=== PATIENT | male | born 1980 | race Caucasian/White ===

== ENCOUNTER 2017-03-28 22:34 | Emergency (ER) | payer SELFPAY ==
[2017-03-28 22:41] VITALS: BP 170/80; PULSE 82; RESP 18; TEMP 97.3
--- NOTE | 2017-03-28 23:13 | ED ---
Upper Extremity HPI - General Chief Complaint: Extremity Injury, Upper Stated Complaint: right hand pain Time Seen by Provider: 03/28/17 23:08 Source: patient Mode of arrival: ambulatory Limitations: no limitations - History of Present Illness Initial Comments: 36-year-old male presents with right hand pain times one day. Patient states he was playing around with his friends and punched pull on the basement. Patient states he felt pain near his fifth digit. Patient states it swelled right away. Patient has been using ice and taking Motrin. Patient states it's still operator brandy but the swelling has gone down. Patient states he does feel pain and stiffness in the area. No numbness or tingling. No pain up the arm no elbow or shoulder pain. No other concerns. No previous fractures. MD Complaint: Injury to:: right, hand Place: home - Related Data Home Medications Medication Instructions Recorded Confirmed Lisinopril [Zestril] 10 mg PO DAILY 06/11/14 04/18/15 Previous Rx's Medication Instructions Recorded Meclizine HCl 25 mg PO TID PRN #20 tablet 04/18/15 Allergies Allergy/AdvReac Type Severity Reaction Status Date / Time No Known Allergies Allergy Verified 03/28/17 22:41 Review of Systems ROS Statement: Those systems with pertinent positive or pertinent negative responses have been documented in the HPI. ROS Other: All systems not noted in ROS Statement are negative. Musculoskeletal: Reports: other (Tender to right fifth digit) Neurological: Denies: weakness, numbness, paresthesias Past Medical History Past Medical History: Hypertension History of Any Multi-Drug Resistant Organisms: None Reported Past Surgical History: Orthopedic Surgery Past Psychological History: No Psychological Hx Reported Smoking Status: Never smoker Past Alcohol Use History: None Reported Past Drug Use History: None Reported General Exam Limitations: no limitations General appearance: alert, in no apparent distress Right Shoulder Exam: Present: normal inspection, full ROM. Absent: tenderness, swelling Upper Arm exam: Present: normal inspection, full ROM. Absent: tenderness, swelling Elbow exam: Present: normal inspection, full ROM. Absent: tenderness, swelling Forearm Wrist exam: Present: normal inspection, full ROM. Absent: tenderness, swelling Hand Wrist exam: Present: tenderness (right fifth), swelling (right fifth) Neuro motor exam: Present: wrist extension intact, thumb opposition intact Neurosensory exam: Present: 2-point discrimination Vascular: Present: normal capillary refill Neurological exam: Present: alert, oriented X3, CN II-XII intact Psychiatric exam: Present: normal affect, normal mood Skin exam: Present: warm, dry, intact, normal color. Absent: rash Course Vital Signs 03/28/17 22:39 Temperature 97.3 F L Pulse Rate 82 Respiratory 18 Rate Blood Pressure 170/80 O2 Sat by Pulse 99 Oximetry Medical Decision Making - Medical Decision Making Reviewed x-ray negative for any acute fracture. Patient aware. Patient given Jj wrap for extra support. Patient to continue with [id number] Motrin as needed for pain and swelling along with ice. Follow-up if not improving. Disposition Clinical Impression: Hand contusion Disposition: HOME SELF-CARE Condition: Good Instructions: Hand Sprain (ED), Contusion in Adults (ED) Referrals: Deni Kathleen DO [Primary Care Provider] - 1-2 days Ramón Barakat DO [Doctor of Osteopathic Medicine] - 1-2 days Time of Disposition: 23:12
--- NOTE | 2017-03-28 23:13 | XR ---
EXAM: XR Right Hand Complete, 3 or More Views CLINICAL HISTORY: Reason: Pain TECHNIQUE: Frontal, lateral and oblique views of the right hand. COMPARISON: No relevant prior studies available. FINDINGS: Bones/joints: Unremarkable. No acute fracture. No dislocation. Soft tissues: Unremarkable. No radiopaque foreign body. IMPRESSION: Normal right hand x-rays.
== END 2017-03-28 23:20 | disposition home or self-care (01) ==
LOC: EC 22:34
DX: S60.221A Contusion of right hand, initial encounter (principal); Z79.899 Other long term (current) drug therapy; W22.09XA Striking against other stationary object, initial encounter; Y93.89 Activity, other specified; Y92.009 Unspecified place in unspecified non-institutional (private) residence as the place of occurrence of the external cause
CPT/HCPCS: 99283

== ENCOUNTER 2018-11-03 19:18 | Emergency (ER) | payer OTHER ==
[2018-11-03 19:36] VITALS: BP 158/79; PULSE 72; RESP 20; TEMP 99
--- NOTE | 2018-11-03 20:45 | XR ---
EXAMINATION TYPE: XR elbow complete RT DATE OF EXAM: 11/03/2018 COMPARISON: NONE HISTORY: Elbow pain TECHNIQUE: 3 views FINDINGS: There is some spurring on the olecranon process of the ulna. I see no fracture nor dislocat ion. Joint spaces are normal. IMPRESSION: Mild spurring. No fracture.
--- NOTE | 2018-11-03 20:46 | XR ---
EXAMINATION TYPE: XR hand complete RT DATE OF EXAM: 11/03/2018 COMPARISON: 03/28/2017 HISTORY: Pain TECHNIQUE: 3 views FINDINGS: I see no fracture nor dislocation. Joint spaces are normal. Metacarpals are intact. IMPRESSION: Negative right hand exam. No change.
--- NOTE | 2018-11-03 20:54 | ED ---
Upper Extremity HPI - General Chief Complaint: Extremity Injury, Upper Stated Complaint: Rt arm injury Time Seen by Provider: 11/03/18 19:47 Source: patient, family Mode of arrival: ambulatory Limitations: no limitations - History of Present Illness Initial Comments: 38-year-old male presented for right elbow pain, and pain of digits 4 &5. Patient states that he punched a wall 2 months ago and has been experiencing hand pain since chronically. Pt concerned may have fractured his hand, he occasionally since punching the wall has experienced tingling in digits 4 &5. She also states that he has hit his right elbow twice on a wall yesterday on accident. He states he has now had sharp pain that deep down forearm towards fingers. Patient was expressing these concerns with his who told him to come to the ER for evaluation. Patient denies any numbness tingling loss sensation pill or coolness of the extremity Remaining ROS (-), patient denies any recent fever, chills, shortness of breath, chest pain, back pain, abdominal pain, nausea or vomiting, numbness or tingling, dysuria or hematuria, constipation or diarrhea, headaches or visual changes, or any other complaints. - Related Data Home Medications Medication Instructions Recorded Confirmed Lisinopril [Zestril] 10 mg PO DAILY 06/11/14 04/18/15 Previous Rx's Medication Instructions Recorded Meclizine HCl 25 mg PO TID PRN #20 tablet 04/18/15 Allergies Allergy/AdvReac Type Severity Reaction Status Date / Time No Known Allergies Allergy Verified 11/03/18 19:36 Review of Systems ROS Statement: Those systems with pertinent positive or pertinent negative responses have been documented in the HPI. ROS Other: All systems not noted in ROS Statement are negative. Past Medical History Past Medical History: Hypertension History of Any Multi-Drug Resistant Organisms: None Reported Past Surgical History: Orthopedic Surgery Past Psychological History: No Psychological Hx Reported Smoking Status: Never smoker Past Alcohol Use History: None Reported Past Drug Use History: None Reported General Exam - General Exam Comments Initial Comments: General: The patient is awake and alert, in no distress, and does not appear acutely ill. Eye: Pupils are equal, round and reactive to light, extra-ocular movements are intact. No nystagmus. There is normal conjunctiva bilaterally. No signs of icterus. Ears, nose, mouth and throat: There are moist mucous membranes and no oral lesions. Neck: The neck is supple, there is no tenderness or JVD. Cardiovascular: There is a regular rate and rhythm. No murmur, rub or gallop is appreciated. Respiratory: Lungs are clear to auscultation, respirations are non-labored, breath sounds are equal. No wheezes, stridor, rales, or rhonchi. Gastrointestinal: Soft, non-distended, non-tender abdomen without masses or organomegaly noted. There is no rebound or guarding present. No CVA tenderness. Bowel sounds are unremarkable. Musculoskeletal: Normal ROM, at the goals equal bilaterally. Patient admits to mild tenderness with range motion of the right elbow. No soft tissue swelling of the elbows bilaterally. No soft tissue swelling of the MTP DIP and PIP joints. Strength 5/5 of the UE and MTP/DIP/PIP joints of the UE b/l. Sensation intact of the UE equal b/l. Radial pulses equal bilaterally 2+. Capillary refill < 2 seconds. Tingling reproduced with palpation of ulnar near (+) tinels. Neurological: A&O x 3. CN II-XII intact, There are no obvious motor or sensory deficits. Coordination appears grossly intact. Speech is normal. Skin: Skin is warm and dry and no rashes or lesions are noted. Psychiatric: Cooperative, appropriate mood & affect, normal judgment. Limitations: no limitations Course Vital Signs 11/03/18 19:33 Temperature 99 F Pulse Rate 72 Respiratory 20 Rate Blood Pressure 158/79 O2 Sat by Pulse 96 Oximetry Medical Decision Making - Medical Decision Making 38-year-old male presenting for hand pain 2 month and elbow pain times one day. Imaging studies negative for acute osseous injury. Patient most likely is ulnar nerve irritation from hitting elbow twice yesterday. Patient was instructed to follow-up with orthopedic surgery if symptoms persist. Patient neurovascularly intact. At this time feel patient is stable for discharge outpatient follow-up. Patient is agreeable to plan discharge denies questionable this time. Patient discharged appearing well discussed case with him prior Dr. Maldonado prior to patient's discharge. Disposition Clinical Impression: Irritation of ulnar nerve, Hand pain Disposition: HOME SELF-CARE Condition: Good Instructions (If sedation given, give patient instructions): Hand Sprain (ED) Additional Instructions: Please use medication as discussed. Please follow-up with family doctor in the next 2 days. Please return to emergency room if the symptoms increase or worsen or for any other concerns. Is patient prescribed a controlled substance at d/c from ED?: No Referrals: None,Stated [Primary Care Provider] - 1-2 days Time of Disposition: 20:54
== END 2018-11-03 21:06 | disposition home or self-care (01) ==
LOC: EC 19:18
DX: G56.21 Lesion of ulnar nerve, right upper limb (principal); M79.641 Pain in right hand; I10 Essential (primary) hypertension; Z79.899 Other long term (current) drug therapy
CPT/HCPCS: 99283

== ENCOUNTER → 2019-02-28 | Outpatient (CLI) | payer OTHER ==
--- NOTE | 2019-02-28 13:05 | US ---
EXAMINATION TYPE: US abdomen complete DATE OF EXAM: 02/28/2019 COMPARISON: NONE CLINICAL HISTORY: R94.5 Abnormal liver function studies. EXAM MEASUREMENTS: Liver Length: 12.5 cm Gallbladder Wall: 0.2 cm CBD: 0.3 cm Spleen: 12.5 cm Right Kidney: 11.8 x 5.8 x 5.2 cm Left Kidney: 12.3 x 6.3 x 5.2 cm Pancreas: Obscured by bowel gas Liver: Enlarged, increased echogenicity with focal sparing near GB, partially obscured by bowel gas. Gallbladder: wnl Evidence for sonographic Mcdowell's sign: No CBD: wnl Spleen: wnl Right Kidney: wnl Left Kidney: wnl Upper IVC: wnl Abd Aorta: wnl The liver is enlarged and demonstrates increased echogenicity. Areas of focal fatty sparing noted. Th e intrahepatic portion of the IVC and proximal abdominal aorta are within normal limits. There is no evidence of cholelithiasis. Common bile duct is unremarkable. The visualized portions of the pancr eas are homogenous. The spleen is unremarkable. Kidneys are symmetric and free of hydronephrosis. No renal lesions are seen. IMPRESSION: Hepatomegaly with mild hepatic steatosis.
[2019-02-28 15:34] LABS: ALT 62 U/L (21-72); AST 42 U/L (17-59); Alkaline Phosphatase 50 U/L (38-126); Amylase 48 U/L (30-110); Lipase 35 U/L (23-300)
[2019-02-28 19:42] LABS: Hepatitis A Antibody IgM Non-Reactive (Non-Reactive); Hepatitis B Core IgM Non-Reactive (Non-Reactive)
== END | disposition home or self-care (01) ==
LOC: RADUSWWP 06:46
PROVIDERS: ATTEND Family Medicine
DX: K76.0 Fatty (change of) liver, not elsewhere classified (principal); R94.5 Abnormal results of liver function studies
CPT/HCPCS: 76700; 80074; 82150; 83690; 84075; 84450; 84460

== ENCOUNTER → 2019-03-12 | Outpatient (CLI) | payer OTHER ==
--- NOTE | 2019-03-12 11:40 | NM ---
EXAMINATION TYPE: NM hepatobiliary w EF DATE OF EXAM: 03/12/2019 COMPARISON: Abdominal ultrasound February 28, 2019 HISTORY: Abnormal results of liver function studies TECHNIQUE: After the intravenous administration of 5.2 mCi Tc 99m Mebrofenin hepatobiliary scintigrap hy is performed. Immediate images post injection. FINDINGS: There is satisfactory initial accumulation of tracer by the liver. The gallbladder is visualized wit hin 10 minutes. The small bowel activity is noted within 25 minutes. At one hour 8 ounces of oral e nsure plus is given to mimic CCK and gallbladder ejection fraction is calculated at 64 %, in the norm al range. Therefore there is no scintigraphic evidence of cystic or common bile duct obstruction to suggest acute cholecystitis or gallbladder dyskinesia. IMPRESSION: Exam is within normal limits.
== END | disposition home or self-care (01) ==
LOC: RADNMMAIN 08:42
PROVIDERS: ATTEND Family Medicine
DX: R94.5 Abnormal results of liver function studies (principal); K76.9 Liver disease, unspecified
CPT/HCPCS: 78226; A9537

== ENCOUNTER 2019-04-24 18:53 | Observation (INO) | payer OTHER ==
[2019-04-24] MEDS ORDERED: NITROGLYCERIN OINT 1 INCH/GM PACKET TOPICAL STA (19:11)
[2019-04-24] MEDS ORDERED: ASPIRIN 81 MG PO STA (19:11)
--- NOTE | 2019-04-24 19:14 | ED ---
General Adult HPI - General Chief complaint: Chest Pain Stated complaint: Chest pain Time Seen by Provider: 04/24/19 19:04 Source: patient, RN notes reviewed Mode of arrival: wheelchair Limitations: no limitations - History of Present Illness Initial comments: Patient is a pleasant 38-year-old male presenting to the emergency Department with chest discomfort. Onset of symptoms was prior to arrival. Symptoms did start around 40 minutes after eating. Patient had sharp discomfort in his mid chest with some radiation towards the shoulder. Patient has had a mild ache in the shoulder since this morning. Patient did have some associated nausea and s weating. No dyspnea. No history of similar symptoms previously. Symptoms are near resolved at this time. - Related Data Home Medications Medication Instructions Recorded Confirmed Lisinopril [Zestril] 5 mg PO DAILY 04/24/19 04/24/19 Naproxen 500 mg PO DAILY 04/24/19 04/24/19 Sertraline HCl [Zoloft] 50 mg PO HS 04/24/19 04/24/19 Allergies Allergy/AdvReac Type Severity Reaction Status Date / Time No Known Allergies Allergy Verified 04/24/19 19:38 Review of Systems ROS Statement: Those systems with pertinent positive or pertinent negative responses have been documented in the HPI. ROS Other: All systems not noted in ROS Statement are negative. Constitutional: Denies: fever Eyes: Denies: eye pain ENT: Denies: ear pain Respiratory: Denies: dyspnea Cardiovascular: Reports: chest pain Endocrine: Denies: fatigue Gastrointestinal: Reports: nausea Genitourinary: Denies: dysuria Musculoskeletal: Denies: back pain Skin: Denies: rash Past Medical History Past Medical History: No Reported History, Hypertension History of Any Multi-Drug Resistant Organisms: None Reported Past Surgical History: Orthopedic Surgery Past Psychological History: No Psychological Hx Reported Smoking Status: Never smoker Past Alcohol Use History: None Reported Past Drug Use History: None Reported General Exam Limitations: no limitations General appearance: alert, in no apparent distress Head exam: Present: atraumatic Eye exam: Present: normal appearance, PERRL ENT exam: Present: normal oropharynx Neck exam: Present: normal inspection Respiratory exam: Present: normal lung sounds bilaterally. Absent: chest wall tenderness Cardiovascular Exam: Present: regular rate, normal rhythm Expanded Peripheral pulses: 2+: Radial (R), Radial (L), Posterior Tibialis (R), Posterior Tibialis (L) GI/Abdominal exam: Present: soft. Absent: tenderness Extremities exam: Present: normal inspection. Absent: pedal edema, calf tenderness Neurological exam: Present: alert Psychiatric exam: Present: normal affect, normal mood Skin exam: Present: normal color Course Vital Signs 04/24/19 04/24/19 04/24/19 18:56 20:24 20:45 Temperature 98.2 F Pulse Rate 18 L 93 97 Respiratory 22 18 20 Rate Blood Pressure 155/97 144/79 151/76 O2 Sat by Pulse 93 L 97 97 Oximetry EKG Findings - EKG Comments: EKG Findings:: Normal sinus rhythm 87. PA 160. QRS 88. QT 350. QTC 421. Normal axis. Normal QRS. No acute ST change. Medical Decision Making - Medical Decision Making Patient reevaluated and resting comfortably in bed. Patient and family updated on results and plan. Case was discussed in detail with Dr. Zhu, who will admit his patient. - Lab Data Result diagrams: 04/24/19 19:19 04/24/19 19:19 Lab Results 04/24/19 04/24/19 04/24/19 Range/Units 19:19 19:19 19:19 WBC 7.6 (3.8-10.6) k/uL RBC 5.10 (4.30-5.90) m/uL Hgb 15.1 (13.0-17.5) gm/dL Hct 44.1 (39.0-53.0) % MCV 86.5 (80.0-100.0) fL MCH 29.7 (25.0-35.0) pg MCHC 34.4 (31.0-37.0) g/dL RDW 15.3 (11.5-15.5) % Plt Count 230 (150-450) k/uL Neutrophils % 71 % Lymphocytes % 22 % Monocytes % 4 % Eosinophils % 2 % Basophils % 0 % Neutrophils # 5.4 (1.3-7.7) k/uL Lymphocytes # 1.6 (1.0-4.8) k/uL Monocytes # 0.3 (0-1.0) k/uL Eosinophils # 0.1 (0-0.7) k/uL Basophils # 0.0 (0-0.2) k/uL PT 9.8 (9.0-12.0) sec INR 0.9 (<1.2) APTT 25.1 (22.0-30.0) sec D-Dimer <0.17 (<0.60) mg/L FEU Sodium 139 (137-145) mmol/L Potassium 4.0 (3.5-5.1) mmol/L Chloride 107 (98-107) mmol/L Carbon Dioxide 22 (22-30) mmol/L Anion Gap 10 mmol/L BUN 13 (9-20) mg/dL Creatinine 0.83 (0.66-1.25) mg/dL Est GFR (CKD-EPI)AfAm >90 (>60 ml/min/1.73 sqM) Est GFR (CKD-EPI)NonAf >90 (>60 ml/min/1.73 sqM) Glucose 200 H (74-99) mg/dL Calcium 8.8 (8.4-10.2) mg/dL Magnesium 2.0 (1.6-2.3) mg/dL Total Bilirubin 0.2 (0.2-1.3) mg/dL AST 36 (17-59) U/L ALT 47 (21-72) U/L Alkaline Phosphatase 52 (38-126) U/L Troponin I (0.000-0.034) ng/mL Total Protein 6.2 L (6.3-8.2) g/dL Albumin 4.1 (3.5-5.0) g/dL 04/24/19 Range/Units 19:19 WBC (3.8-10.6) k/uL RBC (4.30-5.90) m/uL Hgb (13.0-17.5) gm/dL Hct (39.0-53.0) % MCV (80.0-100.0) fL MCH (25.0-35.0) pg MCHC (31.0-37.0) g/dL RDW (11.5-15.5) % Plt Count (150-450) k/uL Neutrophils % % Lymphocytes % % Monocytes % % Eosinophils % % Basophils % % Neutrophils # (1.3-7.7) k/uL Lymphocytes # (1.0-4.8) k/uL Monocytes # (0-1.0) k/uL Eosinophils # (0-0.7) k/uL Basophils # (0-0.2) k/uL PT (9.0-12.0) sec INR (<1.2) APTT (22.0-30.0) sec D-Dimer (<0.60) mg/L FEU Sodium (137-145) mmol/L Potassium (3.5-5.1) mmol/L Chloride (98-107) mmol/L Carbon Dioxide (22-30) mmol/L Anion Gap mmol/L BUN (9-20) mg/dL Creatinine (0.66-1.25) mg/dL Est GFR (CKD-EPI)AfAm (>60 ml/min/1.73 sqM) Est GFR (CKD-EPI)NonAf (>60 ml/min/1.73 sqM) Glucose (74-99) mg/dL Calcium (8.4-10.2) mg/dL Magnesium (1.6-2.3) mg/dL Total Bilirubin (0.2-1.3) mg/dL AST (17-59) U/L ALT (21-72) U/L Alkaline Phosphatase (38-126) U/L Troponin I <0.012 (0.000-0.034) ng/mL Total Protein (6.3-8.2) g/dL Albumin (3.5-5.0) g/dL - Radiology Data Radiology results: image reviewed (Chest x-ray shows no acute process) Disposition Clinical Impression: Chest pain Disposition: ADMITTED IP TO THIS [facility] Is patient prescribed a controlled substance at d/c from ED?: No Referrals: Cristpoher Monroe Jr, [Primary Care Provider] - 1-2 days Decision Time: 21:00
--- NOTE | 2019-04-24 19:51 | XR ---
EXAMINATION TYPE: XR chest 2V DATE OF EXAM: 04/24/2019 COMPARISON: Chest x-ray April 18, 2015 HISTORY: Chest pain and right arm numbness. TECHNIQUE: Frontal and lateral views of the chest are obtained. FINDINGS: There is no focal air space opacity, pleural effusion, or pneumothorax seen. The cardiac silhouette size is within normal limits. The osseous structures are intact. Overlying EKG leads are present. IMPRESSION: No acute cardiopulmonary process.
[2019-04-24 20:03] LABS: Basophils % (A) 0 %; Eosinophils # (A) 0.1 k/uL (0-0.7); Eosinophils % (A) 2 %; HCT 44.1 % (39.0-53.0); HGB 15.1 gm/dL (13.0-17.5); Lymphocytes # (A) 1.6 k/uL (1.0-4.8); Lymphocytes % (A) 22 %; MCH 29.7 pg (25.0-35.0); MCHC 34.4 g/dL (31.0-37.0); MCV 86.5 fL (80.0-100.0); Mean Platelet Volume 8.2; Monocytes # (A) 0.3 k/uL (0-1.0); Monocytes % (A) 4 %; Neutrophils # (A) 5.4 k/uL (1.3-7.7); Neutrophils % (A) 71 %; Platelet Count 230 k/uL (150-450); RDW 15.3 % (11.5-15.5); WBC 7.6 k/uL (3.8-10.6)
[2019-04-24 20:04] LABS: ALT 47 U/L (21-72); AST 36 U/L (17-59); African American GFR (CKD) >90 (>60 ml/min/1.73 sqM); Albumin 4.1 g/dL (3.5-5.0); Alkaline Phosphatase 52 U/L (38-126); Anion Gap 10 mmol/L; Blood Urea Nitrogen 13 mg/dL (9-20); Calcium 8.8 mg/dL (8.4-10.2); Carbon Dioxide 22 mmol/L (22-30); Chloride 107 mmol/L (98-107); Glucose 200 mg/dL (74-99); Sodium 139 mmol/L (137-145); Total Bilirubin 0.2 mg/dL (0.2-1.3); Total Protein 6.2 g/dL (6.3-8.2)
[2019-04-24 20:10] LABS: D-Dimer <0.17 mg/L FEU (<0.60); INR 0.9 (<1.2); Partial Thromboplastin Time 25.1 sec (22.0-30.0); Prothrombin Time 9.8 sec (9.0-12.0)
[2019-04-24] MEDS ORDERED: NITROGLYCERIN SL TABS 0.4 MG TAB SUBLINGUAL PRN (21:01)
[2019-04-24] MEDS: ACETAMINOPHEN TAB 325 MG TAB PO PRN (22:38)
[2019-04-24] MEDS: LISINOPRIL 5 MG TAB PO SCH (22:38)
[2019-04-24] MEDS: SERTRALINE 50 MG TAB PO SCH ×2 (22:38→22:40)
[2019-04-25] MEDS: NITROGLYCERIN OINT 1 INCH/GM PACKET TOPICAL SCH ×2 (01:08→06:19)
[2019-04-25 08:03] LABS: Cholesterol 123 mg/dL (<200); HDL Cholesterol 43 mg/dL (40-60); LDL Cholesterol,Calculated 69 mg/dL (0-99); Triglycerides 56 mg/dL (<150)
[2019-04-25 08:11] VITALS: RESP 17; TEMP 97.9
--- NOTE | 2019-04-25 08:44 | CONS ---
CONSULTATION Mr. Medina is a 38-year-old male with known history of hypertension who presented with symptoms of left arm discomfort that radiated to the chest. The discomfort occurred while he was driving because of that he came into the emergency room. He had no associated symptoms. He is usually active physically, has no exertional chest discomfort, dyspnea, or dizziness. He has no PND, orthopnea, or peripheral edema. The discomfort is worse in certain position of his chest. His coronary risk factors are remarkable for hypertension. He is nondiabetic, nonsmoker. No history of documented hyperlipidemia or premature coronary artery disease in the family. MEDICATION: His medications at home include lisinopril 5 mg daily, Naprosyn, and sertraline. REVIEW OF SYSTEMS: RESPIRATORY SYSTEM: He has no documented history of asthma, emphysema or bronchitis. GI SYSTEM: No recent GI bleeding. No peptic ulcer disease. SYSTEM: No dysuria or hematuria. NERVOUS SYSTEM: No stroke or seizure. PHYSICAL EXAMINATION: A 38-year-old male, alert, oriented, in no apparent distress. Blood pressure 142/70 with the heart rate in the 70s. HEAD: Normocephalic. EYES: Sclerae nonicteric. NECK: Good carotid upstroke. No bruit. No jugular venous distention. LUNGS: Clear to auscultation. HEART: Regular rate and rhythm. S1, S2. No S3. No S4. No murmur or rub. ABDOMEN: Soft, nontender. Positive bowel sounds. No organomegaly. EXTREMITIES: No edema. Intact distal pulses. Chest wall discomfort reproduced by movement of the arm. LAB DATA: Lab data revealed troponin less than 0.012. Cholesterol 123, LDL of 69. Hemoglobin of 15.1. Potassium 4.0. BUN and creatinine 13 and 0.83. EKG revealed sinus mechanism, normal axis and intervals. Normal electrocardiogram. The chest x-ray revealed no acute infiltrate. IMPRESSION: 1. Chest discomfort atypical for ischemic heart disease, musculoskeletal in etiology. 2. Hypertension. RECOMMENDATION: We will proceed with regular stress test. If there is no evidence of abnormality then I would expect he should be able to be discharged home and followed as an outpatient. MMODL / IJN: [id number] /
[2019-04-25] MEDS ORDERED: ASPIRIN 325 MG TAB PO SCH (09:00)
[2019-04-25] MEDS: LISINOPRIL 5 MG TAB PO SCH (09:19)
[2019-04-25] MEDS: ACETAMINOPHEN TAB 325 MG TAB PO PRN (09:24)
[2019-04-25 12:18] VITALS: BP 164/94; PULSE 102
--- NOTE | 2019-04-25 13:05 | EST ---
EXERCISE STRESS DATE OF SERVICE: 04/25/2019 AGE: 38 SEX: Male HT: 72" WT: 270 pounds PROTOCOL: Trip STAGE: IV DURATION OF EXERCISE: 10 minutes HEART RATE REST: 76 BLOOD PRESSURE REST: 135/88 MAXIMUM HEART RATE ACHIEVED: 163 MAXIMUM BLOOD PRESSURE: 207/68 85% MPHR: 155 100% MPHR: 182 METS: 11.5 INDICATIONS: Chest pain. CLINICAL INFORMATION: Baseline rhythm is sinus mechanism, rate of 76, normal axis, intervals, rare PVCs. Baseline blood pressure 135/88 mmHg. Patient exercised on Trip protocol for 10 minute reaching peak rate 163 beats per minute, which is equal to 89% maximum predicted heart rate. Peak blood pressure 207/68 mmHg. The test was terminated secondary to fatigue. There was no chest pain. Electrocardiograph monitoring revealed rare single PVCs. There was no evidence of diagnostic ischemic ST deviation. FINDINGS: 1. Average exercise tolerance with rare single PVCs. 2. Normal electrocardiograph response to exercise with no evidence of exercise induced ischemia. MMODL / IJN: [id number] /
--- NOTE | 2019-04-27 11:07 | P.HPIM ---
History of Present Illness H&P Date: 04/25/19 Chief Complaint: Chest pain H&P and Discharge Summary This is a 38-year-old gentleman with history of hypertension, anxiety, depression presented to the ER with complaints of chest pain. Reported mid sternal sharp discomfort with radiation towards the left shoulder accompanied by nausea , vomiting and diaphoresis 30-40 minutes after eating. Denied shortness of breath. Chest x-ray nonacute, troponins negative 3, EKG normal sinus rhythm, labs unremarkable. VSS. Evaluated by cardiology, stress test ordered. Review of Systems ROS Statement: Those systems with pertinent positive or pertinent negative responses have been documented in the HPI. ROS Other: All systems not noted in ROS Statement are negative. Past Medical History Past Medical History: No Reported History, Hypertension Additional Past Medical History / Comment(s): Anxiety/Depression History of Any Multi-Drug Resistant Organisms: None Reported Past Surgical History: Orthopedic Surgery Past Psychological History: No Psychological Hx Reported Smoking Status: Never smoker Past Alcohol Use History: None Reported Past Drug Use History: None Reported Medications and Allergies Home Medications Medication Instructions Recorded Confirmed Type Lisinopril [Zestril] 5 mg PO DAILY 04/24/19 04/24/19 History Naproxen 500 mg PO DAILY 04/24/19 04/24/19 History Sertraline HCl [Zoloft] 50 mg PO HS 04/24/19 04/24/19 History Allergies Allergy/AdvReac Type Severity Reaction Status Date / Time No Known Allergies Allergy Verified 04/24/19 19:38 Physical Exam Vitals: Vital Signs Temp Pulse Pulse Resp BP BP Pulse Ox 04/25/19 12:00 97.9 F 102 H 17 164/94 94 L 04/25/19 08:00 97.9 F 72 17 142/78 97 04/25/19 04:00 97.7 F 77 18 152/77 98 04/24/19 22:16 98 04/24/19 22:08 98.2 F 81 18 148/79 95 04/24/19 21:00 86 20 134/81 97 04/24/19 20:45 97 20 151/76 97 04/24/19 20:24 93 18 144/79 97 04/24/19 18:56 98.2 F 18 L 22 155/97 93 L Intake and Output 04/24/19 04/25/19 04/25/19 22:59 06:59 14:59 Other: Voiding Method Toilet # Voids 1 1 Weight 122.47 kg 122.47 kg PHYSICAL EXAM: VITAL SIGNS: As above GENERAL: Sitting up in bed, no acute distress HEENT: Conjunctivae normal. eyes normal. NECK: No JVD. No thyroid enlargement. No LNs CARDIOVASCULAR: S1, S2 regular.. No murmur RESPIRATION: Breath sounds diminished in the bases. No rhonchi or crackles. No bronchial breathing. ABDOMEN: Soft, nontender . No guarding. no masses palpable. No ascites, No hepatosplenomegaly.Bowel sounds heard. LEGS: No edema. no swelling PSYCHIATRY: Alert and oriented X3, mood and affect normal. NERVOUS SYSTEM: Cranial N 2-12 grossly normal. Moves all 4 limbs. Diffuse weakness No focal deficits. Strength and sensation grossly intact.. Skin: no lesions, no rash Joints: No active swelling. No inflammation. Lymphatic system. No LN neck axilla or groin. Results CBC & Chem 7: 04/24/19 19:19 04/24/19 19:19 Labs: Abnormal Lab Results - Last 24 Hours (Table) 04/24/19 Range/Units 19:19 Glucose 200 H (74-99) mg/dL Total Protein 6.2 L (6.3-8.2) g/dL Thrombosis Risk Factor Assmnt - Choose All That Apply Any of the Below Risk Factors Present?: Yes Each Factor Represents 1 point: Obesity (BMI >25) Other Risk Factors: No Thrombosis Risk Factor Assessment Total Risk Factor Score: 1 Thrombosis Risk Factor Assessment Level: Low Risk Assessment and Plan Assessment: -Chest pain, atypical for acute coronary syndrome, possibly muscleoskeletal -Hypertension -Anxiety, depression Plan: Continue on current medication regime ,monitoring and symptomatic treatment. Stress test verbally reported as negative and cleared by cardiology for discharge. Patient is being discharged home in a stable condition with guarded prognosis. The impression and plan of care has been dictated as directed. : I performed a history and examination of this patient, discussed the same with the dictator. I agree with the dictator's note ,documented as a scribe. Any additional findings or plans will be noted. Time taken: 35 minutes
== END 2019-04-25 15:37 ==
LOC: EC 18:53 → 1SOBS 21:02
PROVIDERS: ADMIT Family Medicine; ATTEND Family Medicine
DX: R07.89 Other chest pain (principal); M79.602 Pain in left arm; R11.2 Nausea with vomiting, unspecified; R61 Generalized hyperhidrosis; I10 Essential (primary) hypertension; F41.9 Anxiety disorder, unspecified; F32.9 Major depressive disorder, single episode, unspecified; E66.9 Obesity, unspecified; Z68.36 Body mass index [BMI] 36.0-36.9, adult; Z79.899 Other long term (current) drug therapy; Z79.1 Long term (current) use of non-steroidal anti-inflammatories (NSAID)
CPT/HCPCS: 99285; 36415; 93005; 93017; 85379; 80061; 80053; 83735; 84484 ×2; 85025; 85610; 85730; 71046; G0378 ×2

== ENCOUNTER → 2019-09-08 | Outpatient (CLI) | payer OTHER ==
--- NOTE | 2019-09-08 08:40 | XR ---
EXAMINATION TYPE: XR knee complete RT DATE OF EXAM: 09/08/2019 CLINICAL HISTORY: Work-related injury with pain TECHNIQUE: Three views of the right knee are obtained. COMPARISON: None. FINDINGS: There is no acute fracture/dislocation evident in right knee. Mild to moderate tricompartm ent joint space loss without significant spurring. There is spur from anterior superior patella at th e distal quadriceps tendon attachment. The overlying soft tissue appears unremarkable. IMPRESSION: There is no acute fracture or dislocation in the right knee.
--- NOTE | 2019-09-08 08:40 | XR ---
EXAMINATION TYPE: XR lumbar spine 2 or 3V DATE OF EXAM: 09/08/2019 CLINICAL HISTORY: Work-related injury with pain TECHNIQUE: Frontal and lateral images of the lumbar spine are obtained. COMPARISON: None FINDINGS: There are 5 lumbar type vertebral bodies identified. The lumbar spine shows satisfactory alignment without evidence of acute fracture or dislocation. Vertebral body heights and disk space he ights are within normal limits. The overlying soft tissue appears unremarkable. IMPRESSION: No acute fracture or dislocation is seen in the lumbar spine.
== END | disposition home or self-care (01) ==
LOC: RADXRMAIN 08:11
PROVIDERS: ATTEND Family Medicine
DX: M25.561 Pain in right knee (principal); M54.5 Low back pain
CPT/HCPCS: 72100

== ENCOUNTER → 2019-09-28 | Outpatient (CLI) | payer OTHER ==
--- NOTE | 2019-09-28 22:36 | MR ---
EXAMINATION TYPE: MR lumbar spine wo con DATE OF EXAM: 09/28/2019 COMPARISON: NONE HISTORY: Low back pain TECHNIQUE: T1 and T2 axial and sagittal images of the lumbar spine are submitted. FINDINGS: There is no abnormal signal seen within the visualized spinal cord or paraspinal soft tissu es. At L1-2 there is no disc herniation or canal stenosis. No foraminal encroachment. At L2-3 there is no disc herniation or canal stenosis. No foraminal encroachment. At L3-4 there is no disc herniation or canal stenosis. No foraminal encroachment. At L4-5 there is vertebral body hemangioma of L4. There is a broad-based disc central protrusion. Mil d effacement of thecal sac. Mild hypertrophy of the facets. No foraminal encroachment. At L5-S1 there is no disc herniation or canal stenosis. Mild hypertrophy of the facet joints. IMPRESSION: 1. Broad-based disc protrusion or small herniation L4-L5 with mild effacement of thecal sac but no e vidence of foraminal encroachment.
== END | disposition home or self-care (01) ==
LOC: RADMRIMAIN 05:52
PROVIDERS: ATTEND Family Medicine
DX: M54.5 Low back pain (principal)
CPT/HCPCS: 72148

== ENCOUNTER 2019-10-11 21:12 | Emergency (ER) | payer OTHER ==
[2019-10-11 21:15] VITALS: TEMP 98.1
[2019-10-11] MEDS ORDERED: DIPH,PERTUS(ACELL)TETVAC-LF 0.5 ML VIAL IM ONE (21:33)
[2019-10-11] MEDS: LIDOCAINE 1% INJ 10MG/ML (20 ML MDV) SQ ONE ×2 (21:35→22:00)
[2019-10-11] MEDS ORDERED: GELATIN SPONGE,ABSORB (SMALL) 1 EACH SPONGE TOPICAL STA (22:07)
--- NOTE | 2019-10-11 22:39 | ED ---
Wound/Laceration HPI - General Chief Complaint: Wound/Laceration Stated Complaint: left thumb laceration Time Seen by Provider: 10/11/19 21:33 Source: patient Mode of arrival: ambulatory Limitations: no limitations - History of Present Illness Initial Comments: 38-year-old female patient presents to the emergency department today for evaluation for evaluation of laceration to the left thumb. Patient states he was cleaning a dryer when he cut his finger on aluminum. States this happened about 6-7 hours ago. Patient states he did trim piece of skin off. Patient states he is coming in for evaluation As he is unable to get stop bleeding. Patient denies any clotting disorders or use of anticoagulant or and a platelet medications. Denies any difficulty with range of motion of the thumb. Denies any other injuries. Patient denies any headache, neck pain, back pain, chest pain, shortness of breath, dizziness, weakness, abdominal pain, nausea, v omiting, or difficulties with bowel movements or urination. - Related Data Home Medications Medication Instructions Recorded Confirmed Lisinopril [Zestril] 5 mg PO DAILY 04/24/19 04/24/19 Naproxen 500 mg PO DAILY 04/24/19 04/24/19 Sertraline HCl [Zoloft] 50 mg PO HS 04/24/19 04/24/19 Allergies Allergy/AdvReac Type Severity Reaction Status Date / Time No Known Allergies Allergy Verified 10/11/19 21:15 Review of Systems ROS Statement: Those systems with pertinent positive or pertinent negative responses have been documented in the HPI. ROS Other: All systems not noted in ROS Statement are negative. Past Medical History Past Medical History: No Reported History, Hypertension Additional Past Medical History / Comment(s): Anxiety/Depression History of Any Multi-Drug Resistant Organisms: None Reported Past Surgical History: Orthopedic Surgery Past Psychological History: No Psychological Hx Reported Smoking Status: Never smoker Past Alcohol Use History: None Reported Past Drug Use History: None Reported General Exam Limitations: no limitations General appearance: alert, in no apparent distress, other (This is a well- developed, well-nourished adult male patient in no acute distress. Vital signs upon presentation are temperature 98.1F, pulse 82, respirations 16, blood pressure 174/95, pulse ox 99% on room air.) Respiratory exam: Present: normal lung sounds bilaterally. Absent: respiratory distress, wheezes, rales, rhonchi, stridor Cardiovascular Exam: Present: regular rate, normal rhythm, normal heart sounds. Absent: systolic murmur, diastolic murmur, rubs, gallop, clicks Extremities exam: Present: full ROM, normal capillary refill, other (Patient has a skin avulsion noted to the left lateral nail fold on the thumb on the left hand. There is mild bleeding noted. Skin is otherwise pink, warm, dry. Cap refills less than 3 seconds. Radial pulses 2+ and equal bilaterally.). Absent: normal inspection, tenderness, pedal edema, joint swelling, calf tenderness Neurological exam: Present: alert, oriented X3, CN II-XII intact Psychiatric exam: Present: normal affect, normal mood Skin exam: Present: warm, dry, intact, normal color. Absent: rash Course Vital Signs 10/11/19 10/11/19 21:13 22:50 Temperature 98.1 F Pulse Rate 82 80 Respiratory 16 18 Rate Blood Pressure 174/95 146/85 O2 Sat by Pulse 99 96 Oximetry Medical Decision Making - Medical Decision Making 38-year-old male patient presents to the emergency department today for evaluation of laceration to the left thumb. Physical examination did reveal skin avulsion to the left lateral thumb. Repair was not necessary. Did apply Gelfoam and pressure dressing. Tetanus was updated. Be discharged follow-up with his primary care physician for recheck in 1-2 days. Return parameters were discussed in detail. He verbalizes understanding and agrees with this plan. Disposition Clinical Impression: Avulsion of skin of left thumb Disposition: HOME SELF-CARE Condition: Good Instructions (If sedation given, give patient instructions): Skin Avulsion (ED) Additional Instructions: Keep area clean and dry. Cleanse twice daily with warm water and antibacterial soap. Monitor for signs of infection including but not limited to redness, swelling, drainage of pus, fever, or chills. Return to the emergency department immediately for any new, worsening, or concerning symptoms. Is patient prescribed a controlled substance at d/c from ED?: No Referrals: Cristopher Monroe Jr, DO [Primary Care Provider] - 1-2 days Time of Disposition: 22:39
[2019-10-11 22:51] VITALS: BP 146/85; PULSE 80; RESP 18
== END 2019-10-11 22:51 | disposition home or self-care (01) ==
LOC: EC 21:12
DX: S61.002A Unspecified open wound of left thumb without damage to nail, initial encounter (principal); I10 Essential (primary) hypertension; F32.9 Major depressive disorder, single episode, unspecified; F41.9 Anxiety disorder, unspecified; Z79.899 Other long term (current) drug therapy; Z23 Encounter for immunization; W26.8XXA Contact with other sharp object(s), not elsewhere classified, initial encounter; Y93.89 Activity, other specified; Z53.8 Procedure and treatment not carried out for other reasons
CPT/HCPCS: 90471; 90715; 99282

== ENCOUNTER → 2020-02-02 | Outpatient (CLI) | payer OTHER ==
--- NOTE | 2020-02-03 01:36 | CONS ---
CONSULTATION DATE OF SERVICE: 02/02/2020 This patient is a 39-year-old gentleman who has been evaluated in the sleep center for possible obstructive sleep apnea-hypopnea syndrome. HISTORY OF PRESENT ILLNESSSLEEP-WAKE EVALUATION: Patient's usual sleep schedule on weekdays from 11 p.m. to 5:30 a.m.; on weekends from midnight until 6 a.m. No problems with falling asleep, although he has TV set in bedroom. He sleeps in different positions. While falling asleep, he has symptoms of restless legs and possibly moving his legs during sleep. He has loud snoring and witnessed episodes of stopped breathing during sleep. Patient wakes up from sleep 4 times with one episode of nocturia. In the morning, he wakes up tired. [place] Sleepiness Scale is 6. He usually does not take naps. No history of hypnagogic hallucinations, sleep paralysis or cataplexy. PAST MEDICAL HISTORY: Positive for hypertension. SOCIAL HISTORY: Negative for smoking or using alcohol. PAST SURGICAL HISTORY: Right knee surgery in 2012. MEDICATIONS: Lisinopril. FAMILY HISTORY: Cancer and headaches by his mother. REVIEW OF SYSTEMS: Awakenings from sleep, sometimes tiredness during the day. Snoring, witnessed sleep apnea. PHYSICAL EXAMINATION: GENERAL: A gentleman without distress. VITAL SIGNS: BP 153/83, HR 70, RR 16, height 6 feet 0 inches, weight 294, BMI 39.8, temperature 98.3, oxygen saturation on room air 96%. HEENT: PERRLA, EOMI. Oropharynx extremely low position of soft palate. Mallampati 4. Wide neck 20-1/4 inches in circumference. NECK: Supple, no JVD. Thyroid is not palpable. LUNGS: Clear to percussion and to auscultation. Good air exchange. No wheezing or rhonchi. HEART: S1, S2 regular. No murmurs, gallops, or rubs. ABDOMEN: Obese. EXTREMITIES: No clubbing or cyanosis. FAMILY PRESERVATION CASEWORKER: Awake, alert, and oriented X3. Cranial nerves 2 to 7 intact. There is no fasciculation or atrophy. noted. No focal deficits observed. IMPRESSION: 1. Snoring, episodes of stopped breathing during the sleep, extremely low position of soft palate wide neck, obstructive sleep apnea-hypopnea syndrome. 2. Obesity, body mass index 39.8. 3. Hypertension. 4. Restless legs syndrome. 5. Possible periodic limb movements. 6. Status post right knee surgery x2. PLAN: 1. Polysomnography for evaluation of patient's breathing during sleep. 2. CPAP/BiPAP titration if sleep study confirms obstructive sleep apnea-hypopnea syndrome. 3. Preferable position during sleep on the side. 4. No driving if patient feels any sleepiness. 5. I will see patient for follow up visit to explain results of testing and following plan. Thank you very much for referring this patient for consultation. Sincerely, Alan Harris MD, PhD, FAASM Diplomat of [employer] [facility] [place] MMODL / IJN: [id number] /
== END | disposition home or self-care (01) ==
LOC: SLEEP 14:27
PROVIDERS: ATTEND Internal Medicine
DX: G47.33 Obstructive sleep apnea (adult) (pediatric) (principal); E66.9 Obesity, unspecified; I10 Essential (primary) hypertension; G25.81 Restless legs syndrome; Z98.890 Other specified postprocedural states
CPT/HCPCS: 99211

== ENCOUNTER → 2020-06-27 | Outpatient (CLI) | payer OTHER ==
--- NOTE | 2020-06-27 14:44 | SFUN ---
SLEEP CENTER FOLLOW UP NOTE DATE OF SERVICE: 06/27/2020. A 39-year-old gentleman who has been followed in the Sleep Center for treatment of obstructive sleep apnea-hypopnea syndrome. Recently, patient had a home sleep apnea test which showed severe obstructive sleep apnea with apnea-hypopnea index 32. Then, the patient had CPAP titration. His CPAP unit today is his first visit after he started to use CPAP equipment. Patient feels better with the machine, sleeps better and feels better during the day. [place] Sleepiness Scale today is 0. I checked CPAP unit. CPAP pressure 13 cm of water. Usage is every night and / nights for more than 4 hours, average of 6.2 hours per night. Significant leak documented to 66 L/minute. Apnea-hypopnea index only 0.6, which is perfect. The patient is using a full-face mask, possibly open his mouth and mask possibly moves on the side at that moment. MEDICATIONS: Lisinopril. PHYSICAL EXAM: Patient in no distress. BP 145/84, HR 68, RR 15, weight 290, temp 98.2, oxygen saturation at room air 97%. OROPHARYNX: Low position of soft palate. ABDOMEN: Obese. NECK: Supple, no JVD. Thyroid is not palpable. LUNGS: Clear to percussion and to auscultation. Good air exchange. No wheezing or rhonchi. HEART: S1, S2 regular. No murmurs, gallops, or rubs. EXTREMITIES: No clubbing or cyanosis. FILTERER: Awake, alert, and oriented X3. Cranial nerves 2 to 7 intact. There is no fasciculation or atrophy. noted. No focal deficits observed. IMPRESSION: 1. Obstructive sleep apnea-hypopnea syndrome. Patient demonstrated great compliance with treatment, benefitting from treatment. 2. Significant leak from full-face mask. 3. Hypertension. 4. History of restless legs syndrome. 5. Status post right knee surgery x2. PLAN: 1. Patient will continue to use PAP equipment every night for the whole night. 2. Sleep hygiene with regular time in bed for at least 7-1/2 to 8 hours. 3. Precautions related to driving. No driving if feeling sleepiness. 4. I will maintain all necessary prescription for PAP supplies including mask, tube, filters. 5. Watching weight. 6. No driving if feeling sleepiness. 7. Follow-up visit in 6 months or earlier if patient has any problems. 8. Prescription for chin strap for trial to prevent leak from the mask. Thank you very much for allowing me to participate in the management of your patient. Sincerely, Alan Harris MD, PhD, FAASM Diplomat of [employer] [facility] [place] MMODL / SUNSHINEN: [id number] /
== END | disposition home or self-care (01) ==
LOC: SLEEP 10:54
PROVIDERS: ATTEND Internal Medicine
DX: G47.33 Obstructive sleep apnea (adult) (pediatric) (principal); Z99.89 Dependence on other enabling machines and devices; I10 Essential (primary) hypertension; Z98.890 Other specified postprocedural states

== ENCOUNTER 2020-09-09 20:21 | Emergency (ER) | payer OTHER ==
[2020-09-09 20:33] VITALS: BP 146/95; PULSE 89; TEMP 98.3
[2020-09-09 20:53] VITALS: RESP 20
--- NOTE | 2020-09-09 21:00 | ED ---
General Adult HPI - General Chief complaint: Anxiety Stated complaint: JACQUELIN,anxiety Time Seen by Provider: 09/09/20 20:22 Source: patient, EMS Mode of arrival: EMS Limitations: no limitations - History of Present Illness Initial comments: 39 year-old male patient diagnosed with COVID-19 on Thursday, presents to the emergency department today for evaluation of shortness of breath. He states that he had has cough and mild shortness of breath for the last 2 days. States that today he was helping bring the groceries in when the cold air made it hard to breathe. States that he became anxious due to the shortness of breath, started to hyperventilate more, and called an ambulance. States he has had low grade fever, fatigue, and body aches. Denies any sputum production or hemoptysis. Denies any dizziness. Patient denies any recent rash, chest pain, abdominal pain, nausea, vomiting, diarrhea, constipation, back pain, numbness, tingling, hematuria, dysuria, urinary urgency, urinary frequency, headache, visual changes, or any other complaints. - Related Data Home Medications Medication Instructions Recorded Confirmed Naproxen 500 mg PO DAILY 04/24/19 04/24/19 Sertraline HCl [Zoloft] 50 mg PO HS 04/24/19 04/24/19 lisinopriL [Zestril] 5 mg PO DAILY 04/24/19 04/24/19 Allergies Allergy/AdvReac Type Severity Reaction Status Date / Time No Known Allergies Allergy Verified 09/09/20 20:33 Review of Systems ROS Statement: Those systems with pertinent positive or pertinent negative responses have been documented in the HPI. ROS Other: All systems not noted in ROS Statement are negative. Past Medical History Past Medical History: No Reported History, Hypertension Additional Past Medical History / Comment(s): Anxiety/Depression, sleep apnea History of Any Multi-Drug Resistant Organisms: None Reported Past Surgical History: Orthopedic Surgery Past Psychological History: No Psychological Hx Reported Smoking Status: Never smoker Past Alcohol Use History: None Reported Past Drug Use History: None Reported General Exam Limitations: no limitations General appearance: alert, in no apparent distress, other (physical well-dev eloped, well-nourished adult male patient in no acute distress.) Respiratory exam: Present: normal lung sounds bilaterally. Absent: respiratory distress, wheezes, rales, rhonchi, stridor Cardiovascular Exam: Present: regular rate, normal rhythm, normal heart sounds. Absent: systolic murmur, diastolic murmur, rubs, gallop, clicks GI/Abdominal exam: Present: soft, normal bowel sounds. Absent: distended, tenderness, guarding, rebound, rigid Neurological exam: Present: alert, oriented X3, CN II-XII intact Psychiatric exam: Present: normal affect, normal mood Skin exam: Present: warm, dry, intact, normal color. Absent: rash Course Vital Signs 09/09/20 09/09/20 09/09/20 20:28 20:48 21:49 Temperature 98.3 F 98.3 F Pulse Rate 89 89 Respiratory 22 20 20 Rate Blood Pressure 146/95 146/95 O2 Sat by Pulse 97 97 Oximetry Medical Decision Making - Medical Decision Making 39-year-old male patient presents to the emergency department today for an episode of shortness of breath. He was diagnosed with COVID-19 on Thursday. Started having symptoms this weekend. States he is on the cold which made it more difficult for him to breathe which induced a panic attack. Upon arrival he is resting comfortably in no acute respiratory distress. Lungs are clear to auscultation. Oxygen saturation is 96-97% on room air. We did obtain a chest x-ray which is unremarkable. He was able to ambulate in the department oxygen saturation maintained 96%. He does feel comfortable being discharged home at this time. He is instructed follow up with his primary care physician for recheck in 1-2 days. Return parameters were discussed in detail. He verbalizes understanding and agrees with this plan. Case discussed with Dr. Solorzano. - Radiology Data Radiology results: report reviewed, image reviewed One view x-ray of the chest is obtained. Report was reviewed in its entirety. Impression by Dr. Bae shows normal chest. No change. Disposition Clinical Impression: COVID-19, Shortness of breath Disposition: HOME SELF-CARE Condition: Good Instructions (If sedation given, give patient instructions): Viral Syndrome (ED), Shortness of Breath (ED) Additional Instructions: Follow-up with the primary care physician for recheck in 1-2 days. Return to the emergency department for any new, worsening, or concerning symptoms. Is patient prescribed a controlled substance at d/c from ED?: No Referrals: Cristopher Monroe Jr, DO [Primary Care Provider] - 1-2 days Time of Disposition: 21:35
--- NOTE | 2020-09-09 21:04 | XR ---
EXAMINATION TYPE: XR chest 1V DATE OF EXAM: 09/09/2020 COMPARISON: 04/24/2019 HISTORY: Arm numbness. Chest pain TECHNIQUE: FINDINGS: Heart and mediastinum are normal. Lungs are clear. Diaphragm is normal. Bony thorax appears normal IMPRESSION: Normal chest. No change.
== END 2020-09-09 21:50 | disposition home or self-care (01) ==
LOC: EC 20:21
DX: U07.1 COVID-19 (principal); I10 Essential (primary) hypertension; F41.9 Anxiety disorder, unspecified; F32.9 Major depressive disorder, single episode, unspecified; Z79.899 Other long term (current) drug therapy
CPT/HCPCS: 71045; 99283

== ENCOUNTER → 2021-01-24 | Outpatient (CLI) | payer OTHER ==
--- NOTE | 2021-01-24 23:34 | SFUN ---
SLEEP CENTER FOLLOW UP NOTE DATE OF SERVICE: 01/24/2021 40-year-old gentleman has been followed in Sleep Center for treatment of obstructive sleep apnea-hypopnea syndrome. Patient continued to use his CPAP equipment every night for the whole night. The patient sleeps well with the machine. Silt Sleepiness Scale is 7, which is normal range. I checked his machine. His pressure is 13 cm of water, usage is 28/30 nights and 27/30 nights more than 4 hours. Leak is pretty high, but at the same time, apnea-hypopnea index is totally normal 0.5. The patient is using a Simplex fullface mask which covers nose and mouth. He has meza. There is a possibility that the leak from the mask related to the meza. I discussed with the patient option to change the mask to different styles, but presently the patient preferred to continue to use the same mask and its the question if he will change it, not necessary it will be better. MEDICATIONS: 1. Lisinopril 10 mg once a day. 2. Omeprazole 40 mg once a day. 3. Sertraline 10 mg once a day. PHYSICAL EXAMINATION: GENERAL: Patient in no distress. BP 151/73, HR 90, RR 14. Height is 6 feet three quarter inches, weight 382.6 pounds, temperature 98.2, oxygen saturation at room air 96%. Oropharynx: Low position of soft palate. NECK: Supple, no JVD. Thyroid is not palpable. LUNGS: Clear to percussion and to auscultation. Good air exchange. No wheezing or rhonchi. HEART: S1, S2 regular. No murmurs, gallops, or rubs. ABDOMEN: Slightly obese. Soft and nontender. Bowel sounds are present. No organomegaly appreciated. EXTREMITIES: No clubbing or cyanosis. EVS TECH: Awake, alert, and oriented X3. Cranial nerves 2 to 7 intact. There is no fasciculation or atrophy. noted. No focal deficits observed. IMPRESSION: 1. Obstructive sleep apnea-hypopnea syndrome. Patient demonstrated great compliance with treatment benefitting from treatment. 2. Significant leak from fullface mask, most probably related to the fact that the patient has a meza, but at the same time, apnea-hypopnea index is in normal range. 3. Hypertension. 4. Work. 5. History of restless legs syndrome. 6. Status post right knee surgery x2. PLAN: 1. Patient will continue to use PAP equipment every night for the whole night. 2. Sleep hygiene with regular time in bed for at least 7-1/2 to 8 hours. 3. Precautions related to driving. No driving if feeling sleepiness. 4. I will maintain all necessary prescription for PAP supplies including mask, tube, filters. 5. Watching weight. 6. Follow-up visit in 6 months or earlier if patient has any problems. Time spent with the patient and documentation 30 minutes. Thank you very much for allowing me to participate in management of your patient. Sincerely, Alan Harris MD, PhD, FAASM Diplomat of [place] [employer] [place] [employer] [facility] MMODL / IJN: [id number] /
== END | disposition home or self-care (01) ==
LOC: SLEEP 10:56
PROVIDERS: ATTEND Internal Medicine
DX: G47.33 Obstructive sleep apnea (adult) (pediatric) (principal); I10 Essential (primary) hypertension; Z47.1 Aftercare following joint replacement surgery

== ENCOUNTER 2021-06-20 16:20 | Emergency (ER) | payer OTHER ==
[2021-06-20 17:38] VITALS: RESP 20; TEMP 98.8
[2021-06-20 17:38] LABS: Glucose,Whole Blood 500 mg/dL (75-99)
--- NOTE | 2021-06-20 18:22 | ED ---
General Adult HPI - General Chief complaint: Recheck/Abnormal Lab/Rx Stated complaint: Hyperglycemia Time Seen by Provider: 06/20/21 17:46 Source: patient Mode of arrival: ambulatory Limitations: no limitations - History of Present Illness Initial comments: Dictation was produced using [employer] dictation software. please excuse any grammatical, word or spelling errors. Chief Complaint: 40-year-old male presents to the emergency Department for hyperglycemia History of Present Illness: 40-year-old male 2 days ago he had surgery to treat pilonidal cyst. He had labs drawn and was found to have elevated blood sugar. He was told to follow-up with his primary care doctor. He is to try to manage his sugars at home with fluid intake and watching his diet. He's been checking his sugars that have been approximately 500. His primary care doctor knows that he is here. She states she's been expressing polyuria and polydipsia. The ROS documented in this emergency department record has been reviewed and confirmed by me. Those systems with pertinent positive or negative responses have been documented in the HPI. All other systems are other negative and/or noncontributory. PHYSICAL EXAM: General Impression: Alert and oriented x3, not in acute distress HEENT: Normocephalic atraumatic, extra-ocular movements intact, pupils equal and reactive to light bilaterally, mucous membranes moist. Cardiovascular: Heart regular rate and rhythm Chest: Able to complete full sentences, no retractions, no tachypnea Abdomen: abdomen soft, non-tender, non-distended, no organomegaly Musculoskeletal: Pulses present and equal in all extremities, no peripheral edema Motor: no focal deficits noted Neurological: CN II-XII grossly intact, no focal motor or sensory deficits noted Skin: Intact with no visualized rashes, surgical site clean dry and intact Psych: Normal affect and mood ED course: 40 yo male presents emergency department for hyperglycemia. Vital signs upon arrival are within acceptable limits. Return evaluation obtained. CBC unremarkable. Metabolic panel shows no acidosis. There is a sugar of 500 on point of care blood glucose. Patient is given fluids. Glucose levels brought down to 75. He expellingg glucose in his urine at 4+. Patient was evaluated at the bedside approximate 7:[address] Devin Green's mid-level provider. They request the patient be started on Jardiance and metformin. Pending hemoglobin A1c level that will be followed up by primary care staff. Patient's groove discharge. Patient counseled on non- medication ways to control blood sugar. - Related Data Home Medications Medication Instructions Recorded Confirmed HYDROcodone/APAP 5-325MG [[place] 1 tab PO QID PRN 06/20/21 06/20/21 5-325] Omeprazole 40 mg PO DAILY 06/20/21 06/20/21 Sertraline HCl [Zoloft] 100 mg PO HS 06/20/21 06/20/21 lisinopriL 10 mg PO DAILY 06/20/21 06/20/21 Previous Rx's Medication Instructions Recorded Empagliflozin [Jardiance] 10 mg PO DAILY #20 tablet 06/20/21 metFORMIN HCL [Glucophage] 500 mg PO BID #40 tab 06/20/21 Allergies Allergy/AdvReac Type Severity Reaction Status Date / Time No Known Allergies Allergy Verified 06/20/21 18:07 Review of Systems ROS Statement: Those systems with pertinent positive or pertinent negative responses have been documented in the HPI. ROS Other: All systems not noted in ROS Statement are negative. Past Medical History Past Medical History: No Reported History, Hypertension Additional Past Medical History / Comment(s): Anxiety/Depression, sleep apnea History of Any Multi-Drug Resistant Organisms: None Reported Past Surgical History: Orthopedic Surgery Past Psychological History: No Psychological Hx Reported Smoking Status: Never smoker Past Alcohol Use History: None Reported Past Drug Use History: None Reported General Exam Limitations: no limitations Course Vital Signs 06/20/21 17:34 Temperature 98.8 F Pulse Rate 65 Respiratory 20 Rate Blood Pressure 150/87 O2 Sat by Pulse 97 Oximetry Medical Decision Making - Lab Data Result diagrams: 06/20/21 18:39 06/20/21 18:39 Lab Results 06/20/21 06/20/21 06/20/21 Range/Units 17:35 18:39 18:39 WBC 7.6 (3.8-10.6) k/uL RBC 5.10 (4.30-5.90) m/uL Hgb 14.0 (13.0-17.5) gm/dL Hct 42.4 (39.0-53.0) % MCV 83.1 (80.0-100.0) fL MCH 27.4 (25.0-35.0) pg MCHC 32.9 (31.0-37.0) g/dL RDW 14.3 (11.5-15.5) % Plt Count 157 (150-450) k/uL MPV 9.6 Neutrophils % 70 % Lymphocytes % 24 % Monocytes % 3 % Eosinophils % 1 % Basophils % 0 % Neutrophils # 5.3 (1.3-7.7) k/uL Lymphocytes # 1.8 (1.0-4.8) k/uL Monocytes # 0.2 (0-1.0) k/uL Eosinophils # 0.1 (0-0.7) k/uL Basophils # 0.0 (0-0.2) k/uL Sodium 135 L (137-145) mmol/L Potassium 4.0 (3.5-5.1) mmol/L Chloride 101 (98-107) mmol/L Carbon Dioxide 24 (22-30) mmol/L Anion Gap 10 mmol/L BUN 14 (9-20) mg/dL Creatinine 0.58 L (0.66-1.25) mg/dL Est GFR (CKD-EPI)AfAm >90 (>60 ml/min/1.73 sqM) Est GFR (CKD-EPI)NonAf >90 (>60 ml/min/1.73 sqM) Glucose 275 H (74-99) mg/dL POC Glucose (mg/dL) 500 H (75-99) mg/dL POC Glu Specialty Finishing Utility Person ID Clifford Romero Calcium 9.3 (8.4-10.2) mg/dL Urine Color Urine Appearance (Clear) Urine pH (5.0-8.0) Ur Specific [place] (1.001-1.035) Urine Protein (Negative) Urine Glucose (UA) (Negative) Urine Ketones (Negative) Urine Blood (Negative) Urine Nitrite (Negative) Urine Bilirubin (Negative) Urine Urobilinogen (<2.0) mg/dL Ur Leukocyte Esterase (Negative) 06/20/21 Range/Units 18:40 WBC (3.8-10.6) k/uL RBC (4.30-5.90) m/uL Hgb (13.0-17.5) gm/dL Hct (39.0-53.0) % MCV (80.0-100.0) fL MCH (25.0-35.0) pg MCHC (31.0-37.0) g/dL RDW (11.5-15.5) % Plt Count (150-450) k/uL MPV Neutrophils % % Lymphocytes % % Monocytes % % Eosinophils % % Basophils % % Neutrophils # (1.3-7.7) k/uL Lymphocytes # (1.0-4.8) k/uL Monocytes # (0-1.0) k/uL Eosinophils # (0-0.7) k/uL Basophils # (0-0.2) k/uL Sodium (137-145) mmol/L Potassium (3.5-5.1) mmol/L Chloride (98-107) mmol/L Carbon Dioxide (22-30) mmol/L Anion Gap mmol/L BUN (9-20) mg/dL Creatinine (0.66-1.25) mg/dL Est GFR (CKD-EPI)AfAm (>60 ml/min/1.73 sqM) Est GFR (CKD-EPI)NonAf (>60 ml/min/1.73 sqM) Glucose (74-99) mg/dL POC Glucose (mg/dL) (75-99) mg/dL POC Glu Specialty Finishing Utility Person ID Calcium (8.4-10.2) mg/dL Urine Color Light Yellow Urine Appearance Clear (Clear) Urine pH 6.0 (5.0-8.0) Ur Specific [place] 1.013 (1.001-1.035) Urine Protein Negative (Negative) Urine Glucose (UA) 4+ H (Negative) Urine Ketones Negative (Negative) Urine Blood Negative (Negative) Urine Nitrite Negative (Negative) Urine Bilirubin Negative (Negative) Urine Urobilinogen <2.0 (<2.0) mg/dL Ur Leukocyte Esterase Negative (Negative) Disposition Clinical Impression: Hyperglycemia Disposition: HOME SELF-CARE Condition: Fair Instructions (If sedation given, give patient instructions): Diabetic Hyperglycemia (ED) Additional Instructions: Please monitor symptoms. If you start to feel diaphoretic, lightheaded this could be sign of hypoglycemia. It is important to check your glucose level with glucometer often especially with these symptoms. If you start to feel hypoglycemic and have a low blood sugar please consume some quick carbohydrates like candy or juice. Prescriptions: metFORMIN HCL [Glucophage] 500 mg PO BID #40 tab Empagliflozin [Jardiance] 10 mg PO DAILY #20 tablet Is patient prescribed a controlled substance at d/c from ED?: No Referrals: Jigar Beltran MD [Primary Care Provider] - 1-2 days
[2021-06-20] MEDS ORDERED: HYDROmorphone 0.5 MG/0.5 ML SYRINGE IVP STA (18:45)
[2021-06-20 18:50] LABS: Appearance,Urine Clear (Clear); Bilirubin,Urine Negative (Negative); Blood,Urine Negative (Negative); Color,Urine Light Yellow; Glucose,Urine (UA) 4+ (Negative); Ketones,Urine Negative (Negative); Leukocyte Esterase,Urine Negative (Negative); Nitrite,Urine Negative (Negative); Protein,Urine Negative (Negative); Specific Gravity,Urine 1.013 (1.001-1.035); Urobilinogen,Urine <2.0 mg/dL (<2.0)
[2021-06-20 18:59] LABS: African American GFR (CKD) >90 (>60 ml/min/1.73 sqM); Anion Gap 10 mmol/L; Blood Urea Nitrogen 14 mg/dL (9-20); Calcium 9.3 mg/dL (8.4-10.2); Carbon Dioxide 24 mmol/L (22-30); Chloride 101 mmol/L (98-107); Glucose 275 mg/dL (74-99); Non-African American GFR(CKD) >90 (>60 ml/min/1.73 sqM); Sodium 135 mmol/L (137-145)
[2021-06-20 19:05] LABS: Basophils % (A) 0 %; Eosinophils # (A) 0.1 k/uL (0-0.7); Eosinophils % (A) 1 %; HCT 42.4 % (39.0-53.0); Lymphocytes # (A) 1.8 k/uL (1.0-4.8); Lymphocytes % (A) 24 %; MCH 27.4 pg (25.0-35.0); MCHC 32.9 g/dL (31.0-37.0); MCV 83.1 fL (80.0-100.0); Mean Platelet Volume 9.6; Monocytes # (A) 0.2 k/uL (0-1.0); Monocytes % (A) 3 %; Neutrophils # (A) 5.3 k/uL (1.3-7.7); Neutrophils % (A) 70 %; Platelet Count 157 k/uL (150-450); RDW 14.3 % (11.5-15.5); WBC 7.6 k/uL (3.8-10.6)
[2021-06-20 20:34] VITALS: BP 146/84; PULSE 84
== END 2021-06-20 20:35 | disposition home or self-care (01) ==
LOC: EC 16:20
DX: R73.9 Hyperglycemia, unspecified (principal); I10 Essential (primary) hypertension; Z79.899 Other long term (current) drug therapy
CPT/HCPCS: 36415; 80048; 85025; 81003; 99283; 96374; J1170

== ENCOUNTER → 2021-07-24 | Outpatient (CLI) | payer OTHER ==
--- NOTE | 2021-07-24 22:38 | SFUN ---
SLEEP CENTER FOLLOW UP NOTE DATE OF SERVICE: 07/24/2021 This 40-year-old gentleman has been followed in Sleep Center for treatment of obstructive sleep apnea-hypopnea syndrome. Patient continues to use his CPAP equipment every night. He sleeps better with the machine. He received a new full-face mask. This is Simplus, and he likes the mask. He is using a full-face mask because he does have difficulties breathing through the nose, so other types of masks are not working for him. Dunning Sleepiness Scale today is 7, which is in normal range. I checked his CPAP unit. Pressure is 13 cm of water. Usage is 27/30 nights. Average 4.5 hours per night. Leak is high at 82 L/minute, but the patient has a meza and he is using a full-face mask. Apnea-hypopnea index is absolutely perfect, 0.4. MEDICATIONS: 1. Sertraline 100 mg once a day. 2. Jardiance 10 mg once a day. 3. Lisinopril 10 mg once a day. 4. Omeprazole 40 mg once a day. 5. Metformin 1000 mg twice a day. PHYSICAL EXAMINATION: GENERAL: Pleasant patient in no distress. VITAL SIGNS: BP 133/78, HR 77, RR 15, height 6 feet 0 inches, weight 270.8, body mass index 36.6, temperature 96.6, oxygen saturation at room air 97%. HEENT: PERRLA, EOMI, evaluation of oropharynx showed tongue protrudes midline. Low position of soft palate. NECK: Supple, no JVD. Thyroid is not palpable. LUNGS: Clear to percussion and to auscultation. Good air exchange. No wheezing or rhonchi. HEART: S1, S2 regular. No murmurs, gallops, or rubs. ABDOMEN: Slightly obese. EXTREMITIES: No clubbing or cyanosis. WORKFORCE DEVELOPMENT SPECIALIST: Awake, alert, and oriented X3. Cranial nerves 2 to 7 intact. There is no fasciculation or atrophy. noted. No focal deficits observed. IMPRESSION: 1. Obstructive sleep apnea-hypopnea syndrome. Patient demonstrated borderline compliance with treatment, benefitting from treatment. Normal respiration on CPAP. 2. Hypertension. 3. Acid reflux. 4. Diabetes mellitus. 5. Status post right knee surgery x2. PLAN: 1. Patient will continue to use PAP equipment every night for the whole night. 2. Sleep hygiene with regular time in bed for at least 7-1/2 to 8 hours. 3. Precautions related to driving. No driving if feeling sleepiness. 4. I will maintain all necessary prescription for PAP supplies including mask, tube, filters. 5. Watching weight. 6. Follow-up visit in one year or earlier if patient has any problems. Thank you very much for allowing me to participate in the management of your patient. Sincerely, Alan Harris MD, PhD, FAASM Diplomat of [place] [employer] Sleep Medicine Board of [place] [employer] Behavioral Medical Director [facility] MMODL / IJN: [id number] /
== END | disposition home or self-care (01) ==
LOC: SLEEP 11:34
PROVIDERS: ATTEND Internal Medicine
DX: G47.33 Obstructive sleep apnea (adult) (pediatric) (principal); I10 Essential (primary) hypertension; K21.9 Gastro-esophageal reflux disease without esophagitis; E11.9 Type 2 diabetes mellitus without complications; Z96.651 Presence of right artificial knee joint

== ENCOUNTER → 2022-05-29 | Outpatient (CLI) | payer OTHER ==
[2022-05-29 18:46] LABS: Anion Gap 10.1 mmol/L (10.00-18.00); Carbon Dioxide 23.7 mmol/L (20.0-27.5); Potassium 4.4 mmol/L (3.5-5.5)
[2022-05-29 19:07] LABS: Basophils # (A) 0.03 X 10*3/uL (0.00-0.10); Basophils % (A) 0.4 %; Eosinophils # (A) 0.03 X 10*3/uL (0.04-0.35); Eosinophils % (A) 0.4 %; HCT 44.8 % (39.6-50.0); HGB 14.5 g/dL (13.0-17.0); Immature Grans, Automated 0.3 %; Lymphocytes # (A) 1.93 X 10*3/uL (0.90-5.00); Lymphocytes % (A) 25.2 %; MCH 26.8 pg (27.0-32.0); MCHC 32.4 g/dL (32.0-37.0); MCV 82.7 fL (80.0-97.0); Mean Platelet Volume 11.6 fL (9.5-12.2); Monocytes % (A) 5.2 %; NRBC Per 100 WBC 0 /100 WBCS (0.0-0.0); Neutrophils # (A) 5.26 X 10*3/uL (1.80-7.70); Neutrophils % (A) 68.5 %; Platelet Count 220 X 10*3/uL (140-440); RBC 5.42 X 10*6/uL (4.40-5.60); RDW 14.9 % (11.5-14.5); WBC 7.67 X 10*3/uL (4.50-10.00)
[2022-05-30 00:39] LABS: African American GFR (CKD) 111.6 (60.0-200.0); Anion Gap 11.2 mmol/L (10.00-18.00); BUN/Creat Ratio 18.52 Ratio (12.00-20.00); Calcium 9.3 mg/dL (8.7-10.3); Carbon Dioxide 25.7 mmol/L (20.0-27.5); Non-African American GFR(CKD) 96.3 (60.0-200.0); Potassium 4.5 mmol/L (3.5-5.5)
== END | disposition home or self-care (01) ==
LOC: LABPAT 14:22
PROVIDERS: ATTEND Orthopaedic Surgery Hand Surgery
DX: Z01.812 Encounter for preprocedural laboratory examination (principal); G56.01 Carpal tunnel syndrome, right upper limb
CPT/HCPCS: 36415; 80048; 80051; 85025

== ENCOUNTER 2022-06-04 12:12 | Day surgery (SDC) | payer OTHER ==
--- NOTE | 2022-06-02 15:15 | P.HPOR ---
History of Present Illness H&P Date: 06/02/22 Chief Complaint: Right carpal tunnel syndrome Subjective: This is a 41 year old male that presents today for initial evaluation regarding a several year history of progressively worsening right hand paresthesias in the thumb, index, middle and ring fingers. He has tried splinting and a HCI injection 1.5 years ago with little relief. He denies any inciting event or neck pain. Physical Examination: RUE: AIN/PIN/Radial/Ulnar/Median motor intact. Radial/Ulnar/Median SILT. 2+/4 Radial/Ulnar pulses palpated. 5/5 APB, 5/5 FDI. Negative Finkelsteins, negative CMC grind, positive Durkan's compression. Impression: 1.) Right carpal tunnel syndrome Plan: Diagnosis and treatment options were discussed with the patient. He has failed conservative treatment and would like to pursue a right endoscopic vs open carpal tunnel release. Risks and benefits of surgery including bleeding, infection, damage to surrounding tissue, need for further surgery, possible need to convert to open procedure, residual numbness were discussed and the patient wished to go forward with surgery. I anticipate 2 weeks off work, this can be extended if needed at first post op appointment. -Osmar Watts DO Orthopedic Hand/Upper Extremity Surgeon Past Medical History Past Medical History: No Reported History, Diabetes Mellitus, Hypertension, Sleep Apnea/CPAP/BIPAP Additional Past Medical History / Comment(s): no cpap History of Any Multi-Drug Resistant Organisms: None Reported Past Surgical History: Orthopedic Surgery Additional Past Surgical History / Comment(s): rt knee scope x2, pilonidal cyst removal Past Anesthesia/Blood Transfusion Reactions: No Reported Reaction Smoking Status: Never smoker - Past Family History Mother Family Medical History: Cancer Additional Family Medical History / Comment(s): pancreatic Medications and Allergies Home Medications Medication Instructions Recorded Confirmed Type Empagliflozin [Jardiance] 10 mg PO DAILY #20 tablet 06/20/21 06/02/22 Rx Omeprazole 40 mg PO DAILY 06/20/21 06/02/22 History Sertraline HCl [Zoloft] 100 mg PO HS 06/20/21 06/02/22 History lisinopriL [Prinivil] 10 mg PO DAILY 06/20/21 06/02/22 History metFORMIN HCL [Glucophage] 500 mg PO BID #40 tab 06/20/21 06/02/22 Rx Allergies Allergy/AdvReac Type Severity Reaction Status Date / Time No Known Allergies Allergy Verified 06/02/22 12:35 Physical Examination Osteopathic Statement: *. No significant issues noted on an osteopathic structural exam other than those noted in the History and Physical/Consult.
[~2022-06-04 12:12] MED LIST: DEXAMETHASONE SOD PHOSPHATE 4 MG/ML 1 ML VIAL IV ONE; HYDROmorphone 0.5 MG/0.5 ML SYRINGE IVP PRN; LACTATED RINGERS 1,000 ML IV SCH; ONDANSETRON 4 MG/2 ML VIAL IVP ONE; Pre Op ABX Message 1 EACH MISC MISCELLANE ONE
[2022-06-04 12:47] VITALS: TEMP 97.6
[2022-06-04] MEDS ORDERED: LACTATED RINGERS 1,000 ML IV ONE (12:55)
[2022-06-04 12:58] LABS: Glucose,Whole Blood 96 mg/dL (70-110)
[2022-06-04] MEDS ORDERED: MIDAZOLAM 2 MG/2 ML VIAL ONE (14:23)
[2022-06-04] MEDS ORDERED: KETAMINE 10 MG/ML 20 ML VIAL ONE (14:23)
[2022-06-04] MEDS ORDERED: LIDOCAINE 2% INJ 20 MG/ML (2 ML VIAL) ONE (14:23)
[2022-06-04] MEDS ORDERED: PROPOFOL 10 MG/ML 20 ML VIAL IV ONE (14:23)
[2022-06-04] MEDS ORDERED: GLYCOPYRROLATE 0.2 MG/ML 2 ML VIAL ONE (14:23)
[2022-06-04] MEDS ORDERED: fentaNYL (PF) 50 MCG/ML 2 ML AMP ONE (14:23)
[2022-06-04] MEDS ORDERED: LIDOCAINE 0.5% (PF) 5 MG/ML (50 ML SDV) SQ ONE (14:39)
[2022-06-04 14:58] VITALS: RESP 16
[2022-06-04 15:12] VITALS: BP 137/79; PULSE 81
--- NOTE | 2022-06-04 20:45 | P.OP ---
Date of Procedure: 06/04/22 Preoperative Diagnosis: Right carpal tunnel syndrome Postoperative Diagnosis: Right carpal tunnel syndrome Procedure(s) Performed: Right endoscopic carpal tunnel release Anesthesia: MAC Surgeon: Osmar Watts Paper Making Machine Operator #1: Arvin Cuenca Estimated Blood Loss (ml): 0 Pathology: none sent Condition: stable Disposition: PACU Description of Procedure: This is a 41 year old male who presents today for a right endoscopic carpal tunnel release after having failed conservative treatment in the past. Risks and benefits of surgery were discussed with the patient including bleeding, damage to surrounding tissue, infection, need to convert to open procedure, need for further surgery as well as risks of anesthesia including pulmonary embolism and even and the patient wished to proceed with surgical intervention. The patients was seen in the pre-operative area by myself. Consent and H&P were completed and updated. The correct extremity was marked in the pre-operative area by myself and all other questions were answered. Operative Narrative: The patient was brought to the operating room by the department of anesthesia. They remained on the portable stretcher and a rolling hand table was brought to the side of the operative extremity. Pre-operative time out was performed indicating the correct patient, procedure and laterality. All in the room agreed. The patient was then drifted off to sleep by the department of anes thesia. MAC anesthesia was utilized and a 50:50 mixture of 1% Lidocaine and 0.5% bupivacaine was injected into the subcutaneous tissues of the palmar skin, 7ccs total. A nonsterile tourniquet was then applied to the operative extremity and the right upper extremity was then prepped and draped in normal sterile fashion. The operative extremity was the exsanguinated with an esmarch bandage and the tourniquet was inflated to 250mmHg. 15 blade scalpel was utilized to make a transverse incision on the palmar skin just ulnar to the palmaris longus tendon at the level of the distal wrist crea se. Ragnell retractor was then placed radially and blunt dissection was performed to reveal the distal forearm fascia. This was lifted with fine Mayur pick ups and Littler tenotomy scissors were then used to open the forearm fascia transversely and a double skin hook was then placed. Hamate finder was placed into the carpal tunnel and then sequential sized dilators were inserted followed by the synovial elevator to separate the flexor tenosynovium from the undersurface of the transverse carpal ligament and a washboard texture was felt. The MicroAire endoscopic carpal tunnel release system gun was the then inserted into the carpal tunnel hugging the deep portion of the transverse carpal ligament in line with the base of the ring finger. Transverse fibers of the ligament were directly visualized. Pressure was applied on the palm to reveal the distal extent of the transverse carpal ligament. The blade was then deployed and the distal half of the transverse carpal ligament was released. The scope was then brought distal again and remaining transverse fibers were incised with the blade. The proximal half of the transverse carpal ligament was then divided and again the scope was advanced distal and remaining transverse fibers were incised with the blade. The radial and ulnar leaflets were directly visualized and mobile consistent with complete release. Tenotomy scissors were then u tilized to release the remaining distal forearm fascia under direct visualization taking care to preserve the palmar cutaneous branch of the median nerve. Skin closure was performed with interrupted 4-0 Monocryl suture followed by Mastisol and steri strips. Sterile dressing was applied consisting of adaptic, 4x4s, Webril, and an warren bandage. Tourniquet was let down and the hand immediately was well perfused. The patient was then woken by the department of anesthesia and transferred to PACU in stable condition. Arvin JUÁREZ was present for the case in its entirety and assisted in major portions of the case and protection of vital neurovascular structures. Osmar Watts D.O. Orthopedic Hand/Upper Extremity Surgeon
== END 2022-06-04 15:27 | disposition home or self-care (01) ==
LOC: OR 12:12
PROVIDERS: ATTEND Orthopaedic Surgery Hand Surgery
DX: G56.01 Carpal tunnel syndrome, right upper limb (principal); E11.9 Type 2 diabetes mellitus without complications; I10 Essential (primary) hypertension; G47.33 Obstructive sleep apnea (adult) (pediatric); Z98.890 Other specified postprocedural states; Z99.89 Dependence on other enabling machines and devices; Z80.0 Family history of malignant neoplasm of digestive organs; Z79.84 Long term (current) use of oral hypoglycemic drugs; Z79.1 Long term (current) use of non-steroidal anti-inflammatories (NSAID)
CPT/HCPCS: 29848; J2250; J1100; J2405; J2001 ×2; J3010; J2704

== ENCOUNTER → 2022-08-08 | Outpatient (CLI) | payer OTHER ==
[2022-08-08 10:50] LABS: Basophils % (A) 0 %; Eosinophils # (A) 0.1 k/uL (0-0.7); Eosinophils % (A) 1 %; HCT 47.1 % (39.0-53.0); HGB 15.5 gm/dL (13.0-17.5); Lymphocytes # (A) 1.6 k/uL (1.0-4.8); Lymphocytes % (A) 26 %; MCH 27.8 pg (25.0-35.0); MCV 84.3 fL (80.0-100.0); Mean Platelet Volume 9.4; Monocytes # (A) 0.3 k/uL (0-1.0); Monocytes % (A) 4 %; Neutrophils # (A) 4.1 k/uL (1.3-7.7); Neutrophils % (A) 66 %; Platelet Count 214 k/uL (150-450); RBC 5.58 m/uL (4.30-5.90); RDW 14.1 % (11.5-15.5); WBC 6.2 k/uL (3.8-10.6)
[2022-08-08 11:26] LABS: ALT 38 U/L (4-49); AST 29 U/L (17-59); African American GFR (CKD) >90 (>60 ml/min/1.73 sqM); Albumin 4.7 g/dL (3.5-5.0); Alkaline Phosphatase 81 U/L (38-126); Anion Gap 8 mmol/L; Blood Urea Nitrogen 12 mg/dL (9-20); Carbon Dioxide 27 mmol/L (22-30); Chloride 105 mmol/L (98-107); Glucose 114 mg/dL (74-99); Non-African American GFR(CKD) >90 (>60 ml/min/1.73 sqM); Potassium 4.8 mmol/L (3.5-5.1); Sodium 140 mmol/L (137-145); Total Bilirubin 0.4 mg/dL (0.2-1.3); Total Protein 7.3 g/dL (6.3-8.2)
[2022-08-09 21:40] LABS: Chol/HDL Ratio 2.65 Ratio; LDL Cholesterol,Calculated 74.3 mg/dL (0.0-131.0); VLDL Calculation 13.44 mg/dL (5.00-40.00)
== END | disposition home or self-care (01) ==
LOC: LABWHC1 09:28
PROVIDERS: ATTEND Family Medicine
DX: Z11.59 Encounter for screening for other viral diseases (principal); E11.9 Type 2 diabetes mellitus without complications
CPT/HCPCS: 80053; 80061; 83036; 84439; 84443; 85025; 86803

== ENCOUNTER 2022-11-09 01:41 | Emergency (ER) | payer OTHER ==
[2022-11-09] MEDS ORDERED: SODIUM CHLORIDE 0.9% 1,000 ML IV ONE (01:57)
[2022-11-09 01:58] VITALS: RESP 20
[2022-11-09 02:04] LABS: Glucose,Whole Blood 146 mg/dL (70-110)
[2022-11-09] MEDS ORDERED: MIDAZOLAM 1 MG/ML 5 ML VIAL IV STA ×2 (02:06→03:15)
[2022-11-09 02:28] LABS: Basophils # (A) 0.1 k/uL (0-0.2); Basophils % (A) 0 %; Eosinophils # (A) 0.1 k/uL (0-0.7); Eosinophils % (A) 1 %; HCT 48.7 % (39.0-53.0); HGB 15.7 gm/dL (13.0-17.5); Lymphocytes # (A) 4.2 k/uL (1.0-4.8); Lymphocytes % (A) 35 %; MCHC 32.2 g/dL (31.0-37.0); Mean Platelet Volume 9.1; Monocytes # (A) 0.6 k/uL (0-1.0); Monocytes % (A) 5 %; Neutrophils # (A) 6.8 k/uL (1.3-7.7); Neutrophils % (A) 56 %; Platelet Count 282 k/uL (150-450); RDW 14.4 % (11.5-15.5)
[2022-11-09 02:36] LABS: ALT 36 U/L (4-49); AST 30 U/L (17-59); Acetaminophen <10.0 ug/mL; African American GFR (CKD) >90 (>60 ml/min/1.73 sqM); Albumin 5.2 g/dL (3.5-5.0); Alkaline Phosphatase 82 U/L (38-126); Anion Gap 22 mmol/L; Blood Urea Nitrogen 13 mg/dL (9-20); Calcium 10.1 mg/dL (8.4-10.2); Carbon Dioxide 16 mmol/L (22-30); Chloride 105 mmol/L (98-107); Glucose 128 mg/dL (74-99); Non-African American GFR(CKD) 82 (>60 ml/min/1.73 sqM); Potassium 4.2 mmol/L (3.5-5.1); Salicylate <1.0 mg/dL; Sodium 143 mmol/L (137-145); Total Bilirubin 0.3 mg/dL (0.2-1.3)
[2022-11-09 02:57] LABS: Alcohol 129 mg/dL
[2022-11-09 03:43] VITALS: BP 167/93; PULSE 107
--- NOTE | 2022-11-09 03:58 | ED ---
General Adult HPI - General Chief complaint: Seizure Stated complaint: Seizure Time Seen by Provider: 11/09/22 01:50 Source: EMS Mode of arrival: EMS Limitations: no limitations - History of Present Illness Initial comments: 42-year-old male presents emergency department after an episode of altered mental status. EMS and provides the history. Report that the patient has had a stressful day. He found out that one of his coworkers had committed suicide. They went out to a bar and were drinking. Patient reportedly had 5 drinks. states that she suddenly turned around and her was on the floor and he was shaking. Unsure if with convulsions or seizure-like activity. Patient has no previous history of seizure-like activity. Unsure if he hit his head when he fell. He has not been answering any questions for EMS. They did not provide him with any medications prior to hospital arrival. HPI Limited because the patient's current condition - Related Data Home Medications Medication Instructions Recorded Confirmed Omeprazole 40 mg PO DAILY 06/20/21 06/04/22 Sertraline HCl [Zoloft] 100 mg PO HS 06/20/21 06/04/22 lisinopriL [Prinivil] 10 mg PO DAILY 06/20/21 06/04/22 Previous Rx's Medication Instructions Recorded Empagliflozin [Jardiance] 10 mg PO DAILY #20 tablet 06/20/21 metFORMIN HCL [Glucophage] 500 mg PO BID #40 tab 06/20/21 Allergies Allergy/AdvReac Type Severity Reaction Status Date / Time No Known Allergies Allergy Verified 06/04/22 12:38 Review of Systems ROS Statement: Those systems with pertinent positive or pertinent negative responses have been documented in the HPI. ROS Other: All systems not noted in ROS Statement are negative. Past Medical History Past Medical History: No Reported History, Hypertension Additional Past Medical History / Comment(s): Anxiety/Depression, sleep apnea History of Any Multi-Drug Resistant Organisms: None Reported Past Surgical History: Orthopedic Surgery Additional Past Surgical History / Comment(s): rt knee scope x2, pilonidal cyst removal Past Anesthesia/Blood Transfusion Reactions: No Reported Reaction Past Psychological History: No Psychological Hx Reported Smoking Status: Never smoker - Past Family History Mother Family Medical History: Cancer Additional Family Medical History / Comment(s): pancreatic General Exam Limitations: altered mental status General appearance: obtunded, other (rolling head back and forth) Eye exam: Present: normal appearance ENT exam: Present: normal exam, mucous membranes moist Respiratory exam: Present: normal lung sounds bilaterally, other (tachypnia). Absent: respiratory distress, wheezes, rales, rhonchi, stridor Cardiovascular Exam: Present: normal rhythm, tachycardia GI/Abdominal exam: Present: soft, normal bowel sounds. Absent: distended, tend erness, guarding, rebound, rigid Extremities exam: Present: normal inspection, full ROM, normal capillary refill. Absent: tenderness, pedal edema, joint swelling, calf tenderness Neurological exam: Present: altered Skin exam: Present: warm, dry, intact, normal color. Absent: rash Course Vital Signs 11/09/22 11/09/22 11/09/22 01:43 01:55 02:00 Pulse Rate 111 H 106 H Respiratory 28 H 20 Rate Blood Pressure 143/91 143/91 O2 Sat by Pulse 92 L 93 L Oximetry 11/09/22 03:42 Pulse Rate 107 H Respiratory 20 Rate Blood Pressure 167/93 O2 Sat by Pulse 92 L Oximetry - Reevaluation(s) Reevaluation #1: 11/09/22 05:[address] read - calling [facility] EKG Findings - EKG Comments: EKG Findings:: EKG demonstrates sinus tachycardia with a rate of 110. ME interval 178. QRS 105. QTC of 397. No acute ST segment elevations or depre ssions Medical Decision Making - Medical Decision Making Was pt. sent in by a medical professional or institution (, [facility], PATIENT RELATIONS MANAGER, urgent care, hospital, or fci...) When possible be specific @ -No Did you speak to anyone other than the patient for history (EMS, parent, family, police, friend...)? What history was obtained from this source @ - Did you review nursing and triage notes (agree or disagree)? Why? @ -I reviewed and agree with nursing and triage notes Were old charts reviewed (outside hosp., previous admission, EMS record, old EKG, old radiological studies, urgent care reports/EKG's, fci records)? Report findings @ -old charts were not reviewed Differential Diagnosis (chest pain, altered mental status, abdominal pain women, abdominal pain men, vaginal bleeding, weakness, fever, dyspnea, syncope, headache, dizziness, GI bleed, back pain, seizure, CVA, palpatations, mental health, musculoskeletal)? @ -seizure, psuedoseizure, sah, sdh, anxiety attack, drug overdose EKG interpreted by me (3pts min.). @ -As above X-rays interpreted by me (1pt min.). @ -yes CT interpreted by me (1pt min.). @ -yes U/S interpreted by me (1pt. min.). @ -None done What testing was considered but not performed or refused? (CT, X-rays, U/S, labs)? Why? @ -None What meds were considered but not given or refused? Why? @ -None Did you discuss the management of the patient with other professionals ( professionals i.e. , PA, PATIENT RELATIONS MANAGER, lab, RT, psych nurse, social work specialist, drum tender, teacher, senior major gifts officer, pillowcase cleaner)? Give summary @ -No Was smoking cessation discussed for >3mins.? @ -No Was critical care preformed (if so, how long)? @ -no Were there social determinants of health that impacted care today? How? (Homelessness, low income, unemployed, alcoholism, drug addiction, transpo rtation, low edu. Level, literacy, decrease access to med. care, shelter, rehab)? @ -No Was there de-escalation of care discussed even if they declined (Discuss DNR or withdrawal of care, Hospice)? DNR status @ -No What co-morbidities impacted this encounter? (DM, HTN, Smoking, COPD, CAD, Cancer, CVA, ARF, Chemo, Hep., AIDS, mental health diagnosis, sleep apnea, morbid obesity)? @ -none Was patient admitted / discharged? Hospital course, mention meds given and route, prescriptions, significant lab abnormalities, going to OR and other pertinent info. @ -Upon arrival patient was placed into room 6. History and physical exam was performed. Patient is rolling his head back and forth and moving his legs restlessly in the bed. It does not appear to be classic seizure like activity. He is given 5 mg of Versed so that an IV can be established. Patient is taken f or CT of his head. Laboratory studies are reviewed. Alcohol level is 129. CT the head and cervical spine is performed which starts no acute process. Chest x-ray demonstrates no acute process. Patient is observed in the emergency department for 4 and half hours. He is able to become arousable and is at his baseline. Patient will be discharged home. Recommended follow-up with primary care physician for further workup. Return for any new or worsening symptoms. Patient agreeable with plan instructed to condition Undiagnosed new problem with uncertain prognosis? @ -yes Drug Therapy requiring intensive monitoring for toxicity (Heparin, Nitro, Insulin, Cardizem)? @ -No Were any procedures done? @ -No Diagnosis/symptom? @ -acute encephalopathy, alcohol intoxication, suspected pseudoseizure Acute, or Chronic, or Acute on Chronic? @ -acute Uncomplicated (without systemic symptoms) or Complicated (systemic symptoms)? @ -complicated Side effects of treatment? @ -sedation Exacerbation, Progression, or Severe Exacerbation? @ -No Poses a threat to life or bodily function? How? (Chest pain, [place], [place], pneumonia, PE, COPD, DKA, ARF, appy, cholecystitis, CVA, Diverticulitis, Homicidal, Suicidal, threat to staff... and all critical care pts) @ -yes - Lab Data Result diagrams: 11/09/22 02:00 11/09/22 02:00 Lab Results 11/09/22 11/09/22 11/09/22 Range/Units 02:00 02:00 02:00 WBC 12.0 H (3.8-10.6) k/uL RBC 5.80 (4.30-5.90) m/uL Hgb 15.7 (13.0-17.5) gm/dL Hct 48.7 (39.0-53.0) % MCV 84.0 (80.0-100.0) fL MCH 27.0 (25.0-35.0) pg MCHC 32.2 (31.0-37.0) g/dL RDW 14.4 (11.5-15.5) % Plt Count 282 (150-450) k/uL MPV 9.1 Neutrophils % 56 % Lymphocytes % 35 % Monocytes % 5 % Eosinophils % 1 % Basophils % 0 % Neutrophils # 6.8 (1.3-7.7) k/uL Lymphocytes # 4.2 (1.0-4.8) k/uL Monocytes # 0.6 (0-1.0) k/uL Eosinophils # 0.1 (0-0.7) k/uL Basophils # 0.1 (0-0.2) k/uL PT 10.0 (9.0-12.0) sec INR 0.9 (<1.2) APTT 25.5 (22.0-30.0) sec Sodium 143 (137-145) mmol/L Potassium 4.2 (3.5-5.1) mmol/L Chloride 105 (98-107) mmol/L Carbon Dioxide 16 L (22-30) mmol/L Anion Gap 22 mmol/L BUN 13 (9-20) mg/dL Creatinine 1.11 (0.66-1.25) mg/dL Est GFR (CKD-EPI)AfAm >90 (>60 ml/min/1.73 sqM) Est GFR (CKD-EPI)NonAf 82 (>60 ml/min/1.73 sqM) Glucose 128 H (74-99) mg/dL POC Glucose (mg/dL) (70-110) mg/dL POC Glu Show Host Or Hostess ID Calcium 10.1 (8.4-10.2) mg/dL Total Bilirubin 0.3 (0.2-1.3) mg/dL AST 30 (17-59) U/L ALT 36 (4-49) U/L Alkaline Phosphatase 82 (38-126) U/L Troponin I (0.000-0.034) ng/mL Total Protein 8.0 (6.3-8.2) g/dL Albumin 5.2 H (3.5-5.0) g/dL Salicylates <1.0 mg/dL Acetaminophen <10.0 ug/mL Serum Alcohol 129 mg/dL 11/09/22 11/09/22 Range/Units 02:00 02:01 WBC (3.8-10.6) k/uL RBC (4.30-5.90) m/uL Hgb (13.0-17.5) gm/dL Hct (39.0-53.0) % MCV (80.0-100.0) fL MCH (25.0-35.0) pg MCHC (31.0-37.0) g/dL RDW (11.5-15.5) % Plt Count (150-450) k/uL MPV Neutrophils % % Lymphocytes % % Monocytes % % Eosinophils % % Basophils % % Neutrophils # (1.3-7.7) k/uL Lymphocytes # (1.0-4.8) k/uL Monocytes # (0-1.0) k/uL Eosinophils # (0-0.7) k/uL Basophils # (0-0.2) k/uL PT (9.0-12.0) sec INR (<1.2) APTT (22.0-30.0) sec Sodium (137-145) mmol/L Potassium (3.5-5.1) mmol/L Chloride (98-107) mmol/L Carbon Dioxide (22-30) mmol/L Anion Gap mmol/L BUN (9-20) mg/dL Creatinine (0.66-1.25) mg/dL Est GFR (CKD-EPI)AfAm (>60 ml/min/1.73 sqM) Est GFR (CKD-EPI)NonAf (>60 ml/min/1.73 sqM) Glucose (74-99) mg/dL POC Glucose (mg/dL) 146 H (70-110) mg/dL POC Glu Show Host Or Hostess ID [place] Calcium (8.4-10.2) mg/dL Total Bilirubin (0.2-1.3) mg/dL AST (17-59) U/L ALT (4-49) U/L Alkaline Phosphatase (38-126) U/L Troponin I <0.012 (0.000-0.034) ng/mL Total Protein (6.3-8.2) g/dL Albumin (3.5-5.0) g/dL Salicylates mg/dL Acetaminophen ug/mL Serum Alcohol mg/dL Disposition Clinical Impression: Convulsions, Acute encephalopathy Disposition: HOME SELF-CARE Condition: Stable Instructions (If sedation given, give patient instructions): Altered Mental Status (ED) Additional Instructions: You had laboratory studies, chest x-ray and a CAT scan of your head performed in the emergency department. Your workup was normal however you need further evaluation. Please follow-up with your primary care doctor. They may recommend EEG. Return to the emergency room and should you have any new or worsening symptoms Is patient prescribed a controlled substance at d/c from ED?: No Referrals: None,Stated [Primary Care Provider] - 1-2 days Time of Disposition: 05:37
[2022-11-09 04:34] LABS: INR 0.9 (<1.2); Partial Thromboplastin Time 25.5 sec (22.0-30.0)
--- NOTE | 2022-11-09 05:26 | CT ---
EXAM: CT Head Without Intravenous Contrast CLINICAL HISTORY: ITS.REASON CT Reason: ams TECHNIQUE: Axial computed tomography images of the head/brain without intravenous contrast. CTDI is 45.2 mGy and DLP is 1198 mGy-cm. This CT exam was performed using one or more of the following dose reduction techniques: automated exposure control, adjustment of the mA and/or kV according to patient size, and/or use of iterative reconstruction technique. COMPARISON: 06/11/2014 FINDINGS: Brain: Unremarkable. No hemorrhage. No significant white matter disease. No edema. Ventricles: Unremarkable. No ventriculomegaly. Bones/joints: Unremarkable. No acute fracture. Soft tissues: Unremarkable. Sinuses: Unremarkable as visualized. No acute sinusitis. Mastoid air cells: Unremarkable as visualized. No mastoid effusion. IMPRESSION: No acute intracranial process. EXAM: CT Cervical Spine Without Intravenous Contrast CLINICAL HISTORY: ITS.REASON CT Reason: ams TECHNIQUE: Axial computed tomography images of the cervical spine without intravenous contrast. CTDI is 26.3 mGy and DLP is 789.7 mGy-cm. This CT exam was performed using one or more of the following dose reduction techniques: automated exposure control, adjustment of the mA and/or kV according to patient size, and/or use of iterative reconstruction technique. COMPARISON: No relevant prior studies available. FINDINGS: Vertebrae: Unremarkable. No acute fracture. Discs/spinal canal/neural foramina: No acute findings. No spinal canal stenosis. Soft tissues: Unremarkable. IMPRESSION: Normal cervical spine CT.
--- NOTE | 2022-11-09 05:30 | XR ---
EXAM: XR Chest, 1 View CLINICAL HISTORY: ITS.REASON XR Reason: altered mental status TECHNIQUE: Frontal view of the chest. COMPARISON: 09/09/2020 FINDINGS: Lungs: Unremarkable. No consolidation. Pleural space: Unremarkable. No pneumothorax. Heart: Unremarkable. No cardiomegaly. Mediastinum: Unremarkable. Bones/joints: Unremarkable. IMPRESSION: Normal chest x-ray.
== END 2022-11-09 06:05 | disposition home or self-care (01) ==
LOC: EC 01:41
DX: G93.40 Encephalopathy, unspecified (principal); I10 Essential (primary) hypertension; Z79.899 Other long term (current) drug therapy
CPT/HCPCS: 36415; 93005; 80053; 84484; 85025; 85610; 85730; 80143; 80179; 71045; 72125; 70450; 99285; 96374; 96375; 96361 ×3; G0480; J2250; 80320

== ENCOUNTER → 2022-11-14 | Outpatient (CLI) | payer OTHER ==
[2022-11-14 11:24] LABS: Basophils # (A) 0.04 X 10*3/uL (0.00-0.10); Basophils % (A) 0.6 %; Eosinophils # (A) 0.04 X 10*3/uL (0.04-0.35); Eosinophils % (A) 0.6 %; HCT 46.1 % (39.6-50.0); HGB 14.8 g/dL (13.0-17.0); Immature Grans, Automated 0.3 %; Lymphocytes # (A) 1.72 X 10*3/uL (0.90-5.00); Lymphocytes % (A) 27.5 %; MCH 26.8 pg (27.0-32.0); MCHC 32.1 g/dL (32.0-37.0); MCV 83.5 fL (80.0-97.0); Mean Platelet Volume 11.2 fL (9.5-12.2); Monocytes # (A) 0.36 X 10*3/uL (0.20-1.00); Monocytes % (A) 5.8 %; NRBC Per 100 WBC 0 /100 WBCS (0.0-0.0); Neutrophils # (A) 4.07 X 10*3/uL (1.80-7.70); Neutrophils % (A) 65.2 %; Platelet Count 241 X 10*3/uL (140-440); RBC 5.52 X 10*6/uL (4.40-5.60); RDW 14.5 % (11.5-14.5); WBC 6.25 X 10*3/uL (4.50-10.00)
[2022-11-14 11:25] LABS: ALT 35 U/L (10-49); AST 35 U/L (14-35); African American GFR (CKD) 107.1 (60.0-200.0); Albumin 4.9 g/dL (3.8-4.9); Albumin/Globulin Ratio 2.13 (1.60-3.17); Alkaline Phosphatase 84 U/L (41-126); Blood Urea Nitrogen 18.1 mg/dL (9.0-27.0); Calcium 9.6 mg/dL (8.7-10.3); Carbon Dioxide 25.5 mmol/L (20.0-27.5); Chloride 104 mmol/L (96-109); Chol/HDL Ratio 2.67 Ratio; Globulin 2.3 g/dL (1.6-3.3); Glucose 118 mg/dL (70-110); LDL Cholesterol,Calculated 72.6 mg/dL (0.0-131.0); Non-African American GFR(CKD) 92.4 (60.0-200.0); Potassium 4.7 mmol/L (3.5-5.5); Sodium 141 mmol/L (135-145); Total Protein 7.2 g/dL (6.2-8.2); VLDL Calculation 12.96 mg/dL (5.00-40.00)
== END | disposition home or self-care (01) ==
LOC: LABWHC1 07:39
PROVIDERS: ATTEND Family Medicine
DX: E11.9 Type 2 diabetes mellitus without complications (principal)
CPT/HCPCS: 36415; 80053; 80061; 83036; 84443; 85025

== ENCOUNTER → 2022-12-02 | Outpatient (CLI) | payer OTHER ==
--- NOTE | 2022-12-02 22:05 | EEG ---
ELECTROENCEPHALOGRAM REPORT CLINICAL HISTORY: This is a 42-year-old gentleman with new onset reported seizure on 11/09/2022. The video EEG is obtained to evaluate for seizure epileptiform activity. RELEVANT MEDICATION: The patient is not on any antiseizure medication. EEG TYPE: A routine 21-channel EEG is performed with video using the 10/20 electrode placement system. DESCRIPTION: Wakefulness is only obtained. During awake state, the posterior-dominant rhythm consists of [id number] voltage of 12 to 12.5 hertz activity that is well modulated, well sustained. There is no physiological stage 2 sleep architecture. There is no focal slowing. Interictal and ictal is none. ACTIVATION PROCEDURE: Photic stimulation did evoke a posterior driving response at multiple flash frequencies. There is no abnormality during the photic stimulation. Hyperventilation is not performed. CLINICAL INTERPRETATION: This is a normal routine EEG. There is no focal slowing, epileptiform discharge, or seizure on the EEG. Normal routine EEG does not rule out underlying epilepsy. Clinical correlation is recommended. MMODL / IJN: [id number] /
== END ==
LOC: NEUROMAIN 07:40
PROVIDERS: ATTEND Family Medicine
DX: G40.909 Epilepsy, unspecified, not intractable, without status epilepticus (principal)
CPT/HCPCS: 95816

== ENCOUNTER → 2024-01-21 | Outpatient (CLI) | payer BC, MEDICAID, OTHER ==
[2024-01-21 16:43] VITALS: BP 139/74; PULSE 86; RESP 16; TEMP 97.8
--- NOTE | 2024-01-21 17:02 | P.PROGSL ---
Subjective DATE: 01/21/2024 FOLLOW UP VISIT. Patient with obstructive sleep apnea hypopnea syndrome return to sleep center for follow-up visit. Information from previous visit have been reviewed. Patient is using PAP equipment every night for the whole night, getting PAP supplies in time. The patient does not have significant problems with the mask, PAP unit and humidification. [place] sleepiness scale is 4, which is normal. I checked information from PAP unit. PAP unit pressure 13 cm H2O. Usage is 100% for more then 4 hours, average 6.5 hours per night. Leak is significantly increased to 74.4 l/m, patient has meza and mustache. Apnea Hypopnea Index is 0.3, which is perfect. MEDICATIONS: Please see below During physical exam: GENERAL: A pleasant patient without any distress. VITAL SIGNS: Please see below, weight 268 pounds, BMI 36.3. HEENT: PERRLA, EOMI.low position of soft palate, Mallapati 3. NECK: Supple. No JVD. LUNGS: Clear to percussion and to auscultation. Good air exchange. No wheezing or rhonchi. HEART: S1, S2 regular. ABDOMEN: Soft and nontender.[] EXTREMITIES: No clubbing or cyanosis. 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 No focal deficit. Impressions: 1. Obstructive sleep apnea-hypopnea syndrome. Patient demonstrated great compliance with treatment, benefiting from treatment. 2. Hypertension. 3. Diabetes mellitus. 4. Obesity, BMI 36.3, patient lost 4 pounds comparing with previous visit. 5. Acid reflux. 6. Status post right knee surgery x 2. Plan: 1. Continue using PAP equipment every night for the whole night. 2. To change air filter at least 1-2 times per month. 3. PAP unit should stay lower then position of the head. 4. Advised patient to remove all remaining water from humidifier canister daily and make it dry after each usage. Refill canister with fresh distilled water before each usage. 5. Sleep hygiene with regular time in bed for at least 8 hours. 6. Precautions related to driving. No driving if feel any sleepiness. 7. I will maintain prescription for PAP supplies including mask, tube, filters. 8. Follow up visit in 6 months or earlier if patient has any problems. 9. Watching and losing weight. Thank you very much for allowing me to participate in the management of your patient. Alan Harris MD, PhD, FAASM. Diplomat of [place] [employer], Sleep Medicine Board by [place] [facility] [place] Objective - Vital Signs Vital Signs: Vital Signs Temp 97.8 F 01/21/24 16:42 Pulse 86 01/21/24 16:42 Resp 16 01/21/24 16:42 BP 139/74 01/21/24 16:42 Pulse Ox 96 01/21/24 16:42 FiO2 Intake & Output 01/20/24 01/21/24 01/21/24 18:59 06:59 18:59 Weight 121.563 kg Home Medications: Home Medications Medication Instructions Recorded Confirmed Type Empagliflozin [Jardiance] 10 mg PO DAILY #20 tablet 06/20/21 01/21/24 Rx Omeprazole 40 mg PO DAILY 06/20/21 01/21/24 History Sertraline HCl [Zoloft] 100 mg PO HS 06/20/21 01/21/24 History lisinopriL [Prinivil] 10 mg PO DAILY 06/20/21 01/21/24 History Dulaglutide [Trulicity] 0.75 mg SQ DAILY 01/21/24 01/21/24 History
== END ==
LOC: 3 N SLEEP 16:13
PROVIDERS: ATTEND Internal Medicine
DX: G47.33 Obstructive sleep apnea (adult) (pediatric) (principal); I10 Essential (primary) hypertension; K21.9 Gastro-esophageal reflux disease without esophagitis; E11.9 Type 2 diabetes mellitus without complications; E66.9 Obesity, unspecified; Z68.36 Body mass index [BMI] 36.0-36.9, adult; Z99.89 Dependence on other enabling machines and devices; Z79.84 Long term (current) use of oral hypoglycemic drugs; Z79.899 Other long term (current) drug therapy
CPT/HCPCS: 99212

== ENCOUNTER → 2024-10-20 | Outpatient (CLI) | payer BC ==
[2024-10-20 17:30] VITALS: BP 137/85; PULSE 56; RESP 16; TEMP 97.7
--- NOTE | 2024-10-20 18:42 | P.PROGSL ---
Subjective DATE: 10/20/2024 FOLLOW UP VISIT. Patient with obstructive sleep apnea hypopnea syndrome return to sleep center for follow-up visit. Information from previous visit have been reviewed. Patient is using PAP equipment every night for the whole night, getting PAP supplies in time. The patient does not have significant problems with the mask, PAP unit and humidification. [place] sleepiness scale is 5, which is normal. I checked information from PAP unit. PAP unit pressure 13 cm H2O. Usage is 100% for more then 4 hours, average 6 hours per night. Leak is significantly increased to 97 l/m. Apnea Hypopnea Index is 0.3, which is perfect. MEDICATIONS have been reviewed, please see below. During physical exam: GENERAL: A pleasant patient without any distress. VITAL SIGNS: Please see below, weight is 273.4 lbs. HEENT: PERRLA, EOMI.low position of soft palate, Mallapati 3. NECK: Supple. No JVD. LUNGS: Clear to percussion and to auscultation. Good air exchange. No wheezing or rhonchi. HEART: S1, S2 regular. ABDOMEN: Soft and nontender.[] EXTREMITIES: No clubbing or cyanosis. 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 No focal deficit. Impressions: 1. Obstructive sleep apnea-hypopnea syndrome. Patient demonstrated great compliance with treatment, benefiting from treatment. 2. Hypertension. 3. Diabetes mellitus. 4. Obesity, patient increased weight on 5 pounds comparing with previous visit. 5. Acid reflux. 6. Status post right knee surgery. Plan: 1. Continue using PAP equipment every night for the whole night. 2. Sleep hygiene with regular time in bed for at least 7.5-8 hours 3. PAP unit should stay lower then position of the head. 4. Advised patient to remove all remaining water from humidifier canister daily and make it dry after each usage. Refill canister with fresh distilled water before each usage. 5. Watching and losing weight. 6. Precautions related to driving. No driving if feel any sleepiness. 7. I will maintain prescription for PAP supplies including mask, tube, filters. 8. Follow up visit in 8 months or earlier if patient has any problems. Thank you very much for allowing me to participate in the management of your patient. Alan Harris MD, PhD, FAASM. Diplomat of [place] [employer], Sleep Medicine Board by [employer] Floor Specialist [facility] [place] Objective - Vital Signs Vital Signs: Vital Signs Temp 97.7 F 10/20/24 17:27 Pulse 56 L 10/20/24 17:27 Resp 16 10/20/24 17:27 BP 137/85 10/20/24 17:27 Pulse Ox 96 10/20/24 17:27 FiO2 Intake & Output 10/19/24 10/20/24 10/20/24 18:59 06:59 18:59 Weight 123.944 kg Home Medications: Home Medications Medication Instructions Recorded Confirmed Type Empagliflozin [Jardiance] 10 mg PO DAILY #20 tablet 06/20/21 01/21/24 Rx Omeprazole 40 mg PO DAILY 06/20/21 01/21/24 History Sertraline HCl [Zoloft] 100 mg PO HS 06/20/21 10/20/24 History lisinopriL [Prinivil] 10 mg PO DAILY 06/20/21 10/20/24 History Dulaglutide [Trulicity] 0.75 mg SQ DAILY 01/21/24 01/21/24 History Rosuvastatin [Crestor] 5 mg PO DAILY 10/20/24 10/20/24 History
== END ==
LOC: 3 N SLEEP 16:53
PROVIDERS: ATTEND Internal Medicine
DX: E11.9 Type 2 diabetes mellitus without complications (principal); G47.33 Obstructive sleep apnea (adult) (pediatric); I10 Essential (primary) hypertension; E66.9 Obesity, unspecified; K21.9 Gastro-esophageal reflux disease without esophagitis; Z98.890 Other specified postprocedural states
CPT/HCPCS: 99212

== ENCOUNTER 2024-11-14 15:31 | Inpatient (IN) | payer BC ==
[2024-11-14 15:50] LABS: Glucose,Whole Blood 137 mg/dL (70-110)
[2024-11-14 16:31] LABS: Glucose,Whole Blood 155 mg/dL (70-110)
--- NOTE | 2024-11-14 16:38 | ED ---
General Adult HPI - General Chief complaint: Headache Stated complaint: headache Time Seen by Provider: 11/14/24 15:32 Source: family, RN notes reviewed Mode of arrival: ambulatory Limitations: no limitations - History of Present Illness Initial comments: Patient is a 44-year-old male presents emergency department from Dr. Beltran's office with concern for headache. Headache started around 3 days ago. Headaches have been moderate. Patient has been taking Tylenol to control him. Patient has been fatigued and sleeping frequently. Patient has slept up to 18 hours some days. Patient has had some mild nausea and abdominal discomfort. History is taken from as patient is very drowsy and difficult to arouse at this time. - Related Data Home Medications Medication Instructions Recorded Confirmed lisinopriL [Prinivil] 10 mg PO DAILY 06/20/21 11/14/24 Omeprazole Magnesium [PriLOSEC OTC] 20 mg PO DAILY 11/14/24 11/14/24 Sertraline [Zoloft] 50 mg PO DAILY 11/14/24 11/14/24 Allergies Allergy/AdvReac Type Severity Reaction Status Date / Time No Known Allergies Allergy Verified 11/14/24 15:44 Review of Systems ROS Statement: Those systems with pertinent positive or pertinent negative responses have been documented in the HPI. ROS Other: All systems not noted in ROS Statement are negative. Limitations: ROS unobtainable due to patients medical condition Gastrointestinal: Reports: abdominal pain Neurological: Reports: headache Past Medical History Past Medical History: No Reported History, Hypertension Additional Past Medical History / Comment(s): Anxiety/Depression, sleep apnea History of Any Multi-Drug Resistant Organisms: None Reported Past Surgical History: Orthopedic Surgery Additional Past Surgical History / Comment(s): rt knee scope x2, pilonidal cyst removal Past Anesthesia/Blood Transfusion Reactions: No Reported Reaction Past Psychological History: No Psychological Hx Reported Smoking Status: Never smoker Past Alcohol Use History: Occasional Past Drug Use History: Marijuana - Past Family History Mother Family Medical History: Cancer Additional Family Medical History / Comment(s): pancreatic General Exam Limitations: no limitations General appearance: other ( patient is drowsy, somewhat arousable to sternal rub. Protecting airway. Does not follow commands.) Head exam: Present: atraumatic, normocephalic Eye exam: Present: other (Moves eyes away not allowing evaluation) ENT exam: Present: normal oropharynx Neck exam: Present: normal inspection Respiratory exam: Present: normal lung sounds bilaterally Cardiovascular Exam: Present: regular rate, normal rhythm GI/Abdominal exam: Present: soft. Absent: tenderness Extremities exam: Present: normal inspection Neurological exam: Present: other (Mild tremor right hand) Expanded Neurological exam: Present: protecting the airway (Gag reflex is present) Eye Response: (1) no response Motor Response: (4) withdraws to pain (Mild in all extremities) Verbal Response: (1) no verbal response Psychiatric exam: Present: other (Nonverbal) Skin exam: Present: normal color Course Vital Signs 11/14/24 11/14/24 11/14/24 15:41 17:00 17:58 Temperature 97.6 F Pulse Rate 61 54 L 76 Respiratory 18 20 18 Rate Blood Pressure 190/87 161/77 144/92 O2 Sat by Pulse 97 95 97 Oximetry EKG Findings - EKG Results: EKG: interpreted by ERMD, sinus rhythm, normal axis, normal QRS, normal ST/T EKG shows: bradycardia Medical Decision Making - Medical Decision Making 5255. Following second dose of Ativan patient is significantly improved. Family states he was confused for maybe 30 to 60 seconds then was alert and appropriate. On reevaluation patient is alert and oriented x 3. Normal neurological exam. Good strength throughout. Cranial nerves II through XII grossly intact. Patient states he does have questionable seizure history once previously. Patient did start shaking his right leg as well as his right hand prior to receiving Ativan. Was pt. sent in by a medical professional or institution (, PA, CERTIFIED NURSE OPERATING ROOM, urgent care, hospital, or halfway...) When possible be specific @ -No Did you speak to anyone other than the patient for history (EMS, parent, family, police, friend...)? What history was obtained from this source @ - provides history as patient is nonverbal and original evaluation Did you review nursing and triage notes (agree or disagree)? Why? @ -I reviewed and agree with nursing and triage notes Were old charts reviewed (outside hosp., previous admission, EMS record, old EKG, old radiological studies, urgent care reports/EKG's, halfway records)? Report findings @ -No old charts were reviewed Differential Diagnosis (chest pain, altered mental status, abdominal pain women, abdominal pain men, vaginal bleeding, weakness, fever, dyspnea, syncope, headache, dizziness, GI bleed, back pain, seizure, CVA, palpatations, mental health, musculoskeletal)? @ -Differential Altered Mental Status: Hypoglycemia, DKA, hypercapnia, ETOH, overdose, CO poisoning, trauma, myxedema coma, HTN encephalopathy, infection, encephalitis, psychosis, intercranial hemorrhage, hepatic encephalopathy, meningitis, CVA, this is not meant to be an all-inclusive list EKG interpreted by me (3pts min.). @ -As above X-rays interpreted by me (1pt min.). @ -Chest x-ray shows no acute process CT interpreted by me (1pt min.). @ -CT scan of the brain without acute abnormality U/S interpreted by me (1pt. min.). @ -None done What testing was considered but not performed or refused? (CT, X-rays, U/S, labs)? Why? @ -None What meds were considered but not given or refused? Why? @ -None Did you discuss the management of the patient with other professionals (professionals i.e. , PA, CERTIFIED NURSE OPERATING ROOM, lab, RT, psych nurse, older adult social work specialist, media traffic manager, teacher, airline pilot/first officer, counseling case manager)? Give summary @ -Case was discussed with Dr. Luna who will admit covering Dr. Beltran Was smoking cessation discussed for >3mins.? @ -No Was critical care preformed (if so, how long)? @ -No Were there social determinants of health that impacted care today? How? (Homelessness, low income, unemployed, alcoholism, drug addiction, transportat ion, low edu. Level, literacy, decrease access to med. care, senior care, rehab)? @ -No Was there de-escalation of care discussed even if they declined (Discuss DNR or withdrawal of care, Hospice)? DNR status @ -No What co-morbidities impacted this encounter? (DM, HTN, Smoking, COPD, CAD, Cancer, CVA, ARF, Chemo, Hep., AIDS, mental health diagnosis, sleep apnea, morbid obesity)? @ -History of similar symptoms at least once previously Was patient admitted / discharged? Hospital course, mention meds given and route, prescriptions, significant lab abnormalities, going to OR and other pertinent info. @ -Patient presents with 3-day history of intermittent headache. Today patient has presented with altered mental status, nearly unarousable and not following commands. Symptoms resolved with Keppra and Ativan. Evaluation otherwise unremarkable. Patient did have some shaking of his right hand with concern for partial seizure. Patient will be admitted with neuro consult. Admission orders written. Patient and family updated. Undiagnosed new problem with uncertain prognosis? @ -No Drug Therapy requiring intensive monitoring for toxicity (Heparin, Nitro, Insulin, Cardizem)? @ -No Were any procedures done? @ -No Diagnosis/symptom? @ -New onset seizure Acute, or Chronic, or Acute on Chronic? @ -Acute Uncomplicated (without systemic symptoms) or Complicated (systemic symptoms)? @ -Default Side effects of treatment? @ -No Exacerbation, Progression, or Severe Exacerbation? @ -No Poses a threat to life or bodily function? How? (Chest pain, USA, AR, pneumonia, PE, COPD, DKA, ARF, appy, cholecystitis, CVA, Diverticulitis, Homicidal, Suicidal, threat to staff... and all critical care pts) @ -Threat to neurological function - Lab Data Result diagrams: 11/14/24 16:54 11/14/24 16:54 Lab Results 11/14/24 11/14/24 11/14/24 Range/Units 15:49 16:29 16:54 WBC 8.6 (3.8-10.6) k/uL RBC 5.20 (4.30-5.90) m/uL Hgb 13.7 (13.0-17.5) gm/dL Hct 43.2 (39.0-53.0) % MCV 83.0 (80.0-100.0) fL MCH 26.4 (25.0-35.0) pg MCHC 31.8 (31.0-37.0) g/dL RDW 14.5 (11.5-15.5) % Plt Count 202 (150-450) k/uL MPV 8.4 Neutrophils % 75 % Lymphocytes % 19 % Monocytes % 3 % Eosinophils % 1 % Basophils % 0 % Neutrophils # 6.5 (1.3-7.7) k/uL Lymphocytes # 1.7 (1.0-4.8) k/uL Monocytes # 0.3 (0-1.0) k/uL Eosinophils # 0.1 (0-0.7) k/uL Basophils # 0.0 (0-0.2) k/uL PT (10.0-12.5) sec INR (<1.2) APTT (22.0-30.0) sec Sodium (137-145) mmol/L Potassium (3.5-5.1) mmol/L Chloride (98-107) mmol/L Carbon Dioxide (22-30) mmol/L Anion Gap mmol/L BUN (9-20) mg/dL Creatinine (0.66-1.25) mg/dL Est GFR (CKD-EPI)AfAm (>60 ml/min/1.73 sqM) Est GFR (CKD-EPI)NonAf (>60 ml/min/1.73 sqM) Glucose (74-99) mg/dL POC Glucose (mg/dL) 137 H 155 H (70-110) mg/dL POC Glu Wet Wash Assembler ID Susanne Santiago Calcium (8.4-10.2) mg/dL Total Bilirubin (0.2-1.3) mg/dL AST (17-59) U/L ALT (4-49) U/L Alkaline Phosphatase (38-126) U/L Troponin I (0.000-0.034) ng/mL Total Protein (6.3-8.2) g/dL Albumin (3.5-5.0) g/dL Serum Alcohol mg/dL 11/14/24 11/14/24 11/14/24 Range/Units 16:54 16:54 16:54 WBC (3.8-10.6) k/uL RBC (4.30-5.90) m/uL Hgb (13.0-17.5) gm/dL Hct (39.0-53.0) % MCV (80.0-100.0) fL MCH (25.0-35.0) pg MCHC (31.0-37.0) g/dL RDW (11.5-15.5) % Plt Count (150-450) k/uL MPV Neutrophils % % Lymphocytes % % Monocytes % % Eosinophils % % Basophils % % Neutrophils # (1.3-7.7) k/uL Lymphocytes # (1.0-4.8) k/uL Monocytes # (0-1.0) k/uL Eosinophils # (0-0.7) k/uL Basophils # (0-0.2) k/uL PT 11.1 (10.0-12.5) sec INR 1.0 (<1.2) APTT 26.4 (22.0-30.0) sec Sodium 139 (137-145) mmol/L Potassium 4.4 (3.5-5.1) mmol/L Chloride 103 (98-107) mmol/L Carbon Dioxide 25 (22-30) mmol/L Anion Gap 11 mmol/L BUN 13 (9-20) mg/dL Creatinine 0.69 (0.66-1.25) mg/dL Est GFR (CKD-EPI)AfAm >90 (>60 ml/min/1.73 sqM) Est GFR (CKD-EPI)NonAf >90 (>60 ml/min/1.73 sqM) Glucose 142 H (74-99) mg/dL POC Glucose (mg/dL) (70-110) mg/dL POC Glu Wet Wash Assembler ID Calcium 9.8 (8.4-10.2) mg/dL Total Bilirubin 0.8 (0.2-1.3) mg/dL AST 26 (17-59) U/L ALT 29 (4-49) U/L Alkaline Phosphatase 61 (38-126) U/L Troponin I <0.012 (0.000-0.034) ng/mL Total Protein 7.7 (6.3-8.2) g/dL Albumin 5.0 (3.5-5.0) g/dL Serum Alcohol <10 mg/dL Disposition Clinical Impression: New onset seizure Disposition: ADMITTED IP TO THIS [facility] Instructions (If sedation given, give patient instructions): Seizure/Epilepsy Discharge Instructions & Follow-Up Is patient prescribed a controlled substance at d/c from ED?: No Referrals: Jigar Beltran MD [Primary Care Provider] - 1-2 days Time of Disposition: 19:28
[2024-11-14] MEDS: LORazepam 2 MG/ML INJ IV STA ×2 (16:43→16:57)
[2024-11-14] MEDS: levETIRAcetam IV 500 MG/5 ML VIAL IVP STA (16:47)
[2024-11-14] MEDS: SODIUM CHLORIDE 0.9% 1,000 ML IV ONE (16:54)
[2024-11-14 17:09] LABS: Basophils % (A) 0 %; Eosinophils # (A) 0.1 k/uL (0-0.7); Eosinophils % (A) 1 %; HCT 43.2 % (39.0-53.0); HGB 13.7 gm/dL (13.0-17.5); Lymphocytes # (A) 1.7 k/uL (1.0-4.8); Lymphocytes % (A) 19 %; MCH 26.4 pg (25.0-35.0); MCHC 31.8 g/dL (31.0-37.0); Mean Platelet Volume 8.4; Monocytes # (A) 0.3 k/uL (0-1.0); Monocytes % (A) 3 %; Neutrophils # (A) 6.5 k/uL (1.3-7.7); Neutrophils % (A) 75 %; Platelet Count 202 k/uL (150-450); RDW 14.5 % (11.5-15.5); WBC 8.6 k/uL (3.8-10.6)
[2024-11-14 17:54] LABS: ALT 29 U/L (4-49); AST 26 U/L (17-59); African American GFR (CKD) >90 (>60 ml/min/1.73 sqM); Alcohol <10 mg/dL; Alkaline Phosphatase 61 U/L (38-126); Anion Gap 11 mmol/L; Blood Urea Nitrogen 13 mg/dL (9-20); Calcium 9.8 mg/dL (8.4-10.2); Carbon Dioxide 25 mmol/L (22-30); Chloride 103 mmol/L (98-107); Glucose 142 mg/dL (74-99); Non-African American GFR(CKD) >90 (>60 ml/min/1.73 sqM); Potassium 4.4 mmol/L (3.5-5.1); Sodium 139 mmol/L (137-145); Total Bilirubin 0.8 mg/dL (0.2-1.3); Total Protein 7.7 g/dL (6.3-8.2)
--- NOTE | 2024-11-14 17:58 | CT ---
EXAMINATION TYPE: CT brain wo con DATE OF EXAM: 11/14/2024 COMPARISON: CT brain November 09, 2022 CLINICAL INDICATION: Male, 44 years old with history of Altered mental status, ams, seizure, possible cva, TECHNIQUE: CT scan of the head is performed without contrast. CT DLP: 1234 mGycm. Automated Exposure Control for Dose Reduction was Utilized. FINDINGS: There is no acute intracranial hemorrhage, mass effect, or midline shift identified. The ventricles and sulci are stable and within normal limits in size. Paige-white matter differentiation preserved. Persistent low-lying cerebellar tonsils extending to level of foramen magnum. The globes a re intact and the visualized sinuses are clear. IMPRESSION: No acute intracranial hemorrhage or midline shift is seen. [facility], , 11/14/2024 5:56 PM
--- NOTE | 2024-11-14 18:00 | XR ---
EXAMINATION TYPE: XR chest 1V portable DATE OF EXAM: 11/14/2024 COMPARISON: Chest x-ray 5 days ago CLINICAL INDICATION: Male, 44 years old with history of altered mental status; TECHNIQUE: Single frontal view of the chest is obtained. FINDINGS: There is no focal air space opacity, pleural effusion, or pneumothorax seen. The cardiac silhouette size is stable and upper limits of normal. The osseous structures are intact. IMPRESSION: No acute process. [facility], , 11/14/2024 5:58 PM
[2024-11-14 18:05] LABS: Partial Thromboplastin Time 26.4 sec (22.0-30.0); Prothrombin Time 11.1 sec (10.0-12.5)
--- NOTE | 2024-11-14 18:05 | CT ---
EXAMINATION TYPE: CT angio head neck DATE OF EXAM: 11/14/2024 COMPARISON: NONE CLINICAL INDICATION: Male, 44 years old with history of ams, ams, seizure, possible cva, TECHNIQUE: CTA scan of the head and neck is performed with IV Contrast, patient injected with 65cc m L of Isovue 370, axial images are obtained, coronal and sagittal reformatted images are reviewed. 3D reconstructed images are created on an independent workstation and reviewed. NASCET criteria was used in interpretation of this exam? CT DLP: 956.9 mGycm. Automated Exposure Control for Dose Reduction was Utilized. FINDINGS: Vertebral arteries: The vertebral arteries are patent. Vertebral artery dominance: Codominant Basilar artery: The basilar artery is intact. The basilar artery bifurcation is normal. Internal Carotid arteries: The cervical, petrous, cavernous and supraclinoid segments are normal. DEYSI: Patent with no evidence of aneurysm. ACOM: Present without evidence of aneurysm. MCA: Patent with no evidence of aneurysm. BREWMASTER: Patent with no evidence of aneurysm. PCOM: Patent left posterior communicating artery. Dural sinuses: Patent. CTA NECK: Right Carotid System: The common carotid artery and external carotid artery are patent. The carotid bifurcation demonstrate s no evidence of hemodynamically significant stenosis. The remaining portions of the internal carotid artery demonstrate normal size without significant narrowing. Left Carotid System: The common carotid artery and external carotid artery are patent. The carotid bifurcation demonstrate s no evidence of hemodynamically significant stenosis. The remaining portions of the internal carotid artery demonstrate normal size without significant narrowing. Vertebral arteries are patent without evidence hemodynamically significant stenosis. There is bovine type aortic arch which is normal variant. The origins of the great vessels are patent . No evidence of hemodynamically significant stenosis. IMPRESSION: 1. No evidence of dissection of the cervical internal carotid arteries or vertebral arteries. No any evidence of significant stenosis at the carotid bifurcations. No evidence of intracranial large vess el occlusion or intracranial aneurysm. [facility], , 11/14/2024 6:02 PM
[2024-11-14] MEDS: ACETAMINOPHEN IV (For NPO) 1,000 MG in EMPTY BAG 1 BAG IVPB STA (19:21)
[2024-11-14] MEDS ORDERED: NALOXONE 0.4 MG/ML 1 ML VIAL IV PRN (19:29)
[2024-11-14] MEDS ORDERED: ONDANSETRON 4 MG/2 ML VIAL IVP PRN (19:29)
[2024-11-14] MEDS: traMADol 50 MG TAB PO PRN (19:40)
[2024-11-14 23:18] LABS: Glucose,Whole Blood 126 mg/dL (70-110)
[2024-11-14 23:43] LABS: Amphetamine Screen,Urine Not Detected (NotDetected); Appearance,Urine Clear (Clear); Barbiturate Screen,Urine Not Detected (NotDetected); Benzodiazepines Screen,Urine Detected (NotDetected); Bilirubin,Urine Negative (Negative); Blood,Urine Negative (Negative); Cocaine Screen,Urine Not Detected (NotDetected); Color,Urine Light Yellow; Glucose,Urine (UA) Negative (Negative); Ketones,Urine Negative (Negative); Leukocyte Esterase,Urine Negative (Negative); Methadone Screen, Urine Not Detected (NotDetected); Nitrite,Urine Negative (Negative); Opiate Screen,Urine Not Detected (NotDetected); Oxycodone Screen, Urine Not Detected (NotDetected); PH, Urine 6.5 (5.0-8.0); Phencyclidine Screen,Urine Not Detected (NotDetected); Protein,Urine Negative (Negative); Tricyclic Antidepressant,Urine Not Detected (NotDetected); Urn Cannabinoid Scrn Detected (NotDetected); Urobilinogen,Urine <2.0 mg/dL (<2.0)
[2024-11-15 00:31] LABS: Specific Gravity,Urine 1.048 (1.001-1.035)
[2024-11-15] MEDS: LORazepam 2 MG/ML INJ IV PRN ×2 (02:48→12:48)
[2024-11-15] MEDS: levETIRAcetam IV 500 MG/5 ML VIAL IVP STA (03:08)
[2024-11-15] MEDS: Lacosamide IV (ages 17+ yrs) 200 MG/20 ML ML IVP SCH (03:32)
--- NOTE | 2024-11-15 06:44 | P.CNPUL ---
History of Present Illness Consult date: 11/15/24 Requesting physician: Parmjit Welch Reason for consult: other (Seizure like activity, ICU evaluation) Chief complaint: Altered mental status History of present illness: Patient is a 44-year-old male with past medical history significant for hypertension, diabetes mellitus, obstructive sleep apnea, and history of seizures. Patient is currently lethargic, possibly postictal, and HPI supplemented by his who is at bedside. Patient was sent into the emergency department for evaluation yesterday afternoon, by his primary care provider, Dr. Beltran. Over the last 3 days patient has had a severe headache and increased lethargy. Per the , patient has been sleeping more 12 to 15 hours/day. He does have history of obstructive sleep apnea, and has a CPAP that he wears at home. Has been very difficult to arouse at times. While in the emergency department, the patient was noted to have seizure-like activity per the staff nurse. Affecting his right upper and lower extremity. He was difficult to arouse this time. Given 2 mg of IV Ativan and loaded with Keppra and symptoms reportedly resolved. Patient did have a subsequent episode of seizure-like activity involving the right upper and lower extremity per the nurse. Time was not accurately recorded, possibly 15 minutes. No tongue biting. No loss of bowel or bladder control. A consult was placed for ICU evaluation. Currently, patient being evaluated the emergency department, room 3. He is lethargic, but does follow commands. Moves all 4 extremities. He is able to protect his airway. Initially, on a 15 L nonrebreather, which was removed. SpO2 reading 99% on room air. Patient did receive initial 4 mg of IV Ativan earlier. Neurology, gave an additional dose of 1 g of Keppra and started the patient on Vimpat. No further seizure-like activity reported per the nurse. Patient's is at bedside, reports that he is not on any antiepileptic medications at home. His reports that he has history of seizure 1-2 years ago and again 10 years ago. Does not routinely follow with a neurologist. Denies alcohol misuse. Denies the addition of any new medications. Their son does have epilepsy. Workup in the emergency department including a brain CT which did not show any intracranial process, no intracranial hemorrhage or midline shift. CT angio did not show any evidence of dissection of the cervical internal carotid arteries or vertebral arteries. No evidence of significant stenosis of the carotid bifurcations. No evidence of intracranial large vessel occlusion or intracranial aneurysm. CBC unremarkable. CMP also unremarkable, electrolytes WDL, creatinine 0.69, glucose 142. LFTs unremarkable. Troponin less than 0.012. Urine toxicology screen positive for marijuana and benzodiazepines. Ser um alcohol level less than 10. Current vital signs: Temperature 97.8 F, heart rate 58 bpm, blood pressure 158/97 mmHg, nontachypneic, SpO2 reading 99% on room air. Review of Systems ROS unobtainable: due to mental status Past Medical History Past Medical History: No Reported History, Diabetes Mellitus, Hypertension Additional Past Medical History / Comment(s): Anxiety/Depression, sleep apnea History of Any Multi-Drug Resistant Organisms: None Reported Past Surgical History: Orthopedic Surgery Additional Past Surgical History / Comment(s): rt knee scope x2, pilonidal cyst removal Past Anesthesia/Blood Transfusion Reactions: No Reported Reaction Past Psychological History: No Psychological Hx Reported Smoking Status: Never smoker Past Alcohol Use History: Occasional Past Drug Use History: Marijuana - Past Family History Mother Family Medical History: Cancer Additional Family Medical History / Comment(s): pancreatic Medications and Allergies Home Medications Medication Instructions Recorded Confirmed Type lisinopriL [Prinivil] 10 mg PO DAILY 06/20/21 11/14/24 History Omeprazole Magnesium [PriLOSEC OTC] 20 mg PO DAILY 11/14/24 11/14/24 History Sertraline [Zoloft] 50 mg PO DAILY 11/14/24 11/14/24 History Allergies Allergy/AdvReac Type Severity Reaction Status Date / Time No Known Allergies Allergy Verified 11/14/24 15:44 Physical Exam Vitals: Vital Signs Temp Pulse Resp BP Pulse Ox 11/15/24 05:11 59 L 20 137/85 100 11/15/24 04:00 56 L 19 156/87 100 11/15/24 03:43 97.8 F 57 L 20 158/97 100 11/15/24 03:15 61 19 157/99 95 11/15/24 03:13 64 22 164/98 100 11/15/24 03:00 56 L 20 164/98 95 11/15/24 02:57 60 18 205/54 100 11/15/24 02:30 64 23 200/98 90 L 11/15/24 00:00 60 18 131/73 95 04/07/25 22:56 56 L 18 149/83 96 11/14/24 19:28 64 19 149/89 96 11/14/24 17:58 76 18 144/92 97 11/14/24 17:00 54 L 20 161/77 95 11/14/24 15:41 97.6 F 61 18 190/87 97 Intake and Output 11/14/24 11/14/24 11/15/24 14:59 22:59 06:59 Other: Weight 127.006 kg GENERAL EXAM: Lethargic, 44-year-old male, awakens and follows commands, moves all 4 extremities. HEAD: Normocephalic and atraumatic EYES: Normal reaction of pupils, equal size. Horizontal nystagmus. Nonicteric sclera. NOSE: Clear with pink turbinates. THROAT: No erythema or exudates. NECK: No masses, no JVD. CHEST: No chest wall deformity. LUNGS: Equal air entry with no crackles, wheeze, rhonchi or dullness. On room air. No conversational dyspnea or accessory muscle use.. CVS: S1 and S2 normal with no audible murmur, regular rhythm. No extra heart sounds ABDOMEN: No hepatosplenomegaly, active bowel sounds, no guarding or rigidity. SPINE: No scoliosis or deformity SKIN: No rashes CENTRAL NERVOUS SYSTEM: Lethargic, likely postictal, awakens and answer simple questions appropriately, follows commands, moves all 4 extremities, no focal deficits. EXTREMITIES: There is no peripheral edema, clubbing, or cyanosis. Peripheral pulses are intact. Results - Laboratory Findings CBC and BMP: 11/14/24 16:54 11/14/24 16:54 PT/INR, D-dimer PT 11.1 sec (10.0-12.5) 11/14/24 16:54 INR 1.0 (<1.2) 11/14/24 16:54 Abnormal lab findings: Abnormal Labs 11/14/24 11/14/24 11/14/24 15:49 16:29 16:54 Glucose 142 H POC Glucose (mg/dL) 137 H 155 H Ur Specific [place] U Benzodiazepines Scrn U Marijuana (THC) Screen 11/14/24 11/14/24 11/14/24 22:56 22:56 23:17 Glucose POC Glucose (mg/dL) 126 H Ur Specific [place] 1.048 H U Benzodiazepines Scrn Detected H U Marijuana (THC) Screen Detected H Assessment and Plan Assessment: Seizure-like activity, possible partial seizures; 2 separate episodes of seiz ure-like activity reportedly involving the right upper and lower extremity, has received a total of 6 mg of IV Ativan, also loaded with Keppra and started on Vimpat. No further seizure-like activity reported by nursing since addition of antiepileptics. Hypertension Diabetes mellitus type 2 Obesity, with a BMI of 38 kg/m Obstructive sleep apnea with home CPAP Marijuana smoker Plan: Patient seen in consultation for ICU evaluation. Appears postictal. Able to protect airway. Started on dual antiepileptic medications in the form of Keppra and Vimpat per neurology May use Ativan for breakthrough seizures Brain CTs reviewed, EEG scheduled, recommend follow-up brain MRI Obtain ABG; Continue CPAP at bedtime Place on telemetry If further seizure activity, recommend transfer to the intensive care unit. Currently, admitted as a 3 S. patient. I have personally seen and examined the patient, performed the documentation and the assessment and plan as written. Number of minutes spent on the visit:20 Time with Patient: Greater than 30
[2024-11-15] MEDS ORDERED: LORazepam 1 MG/0.5 ML VIAL IV PRN ×2 (08:14→18:42)
[2024-11-15] MEDS ORDERED: Lacosamide IV (ages 17+ yrs) 200 MG/20 ML ML IVP SCH (09:00)
[2024-11-15] MEDS ORDERED: DEXTROSE 50% SYRINGE 50 ML IVP PRN ×2 (09:01)
--- NOTE | 2024-11-15 09:06 | P.HPIM ---
History of Present Illness This is a pleasant 44 years old male who cannot provide information because of his mental status.. Information obtained from staff, medical records and at bedside. As per patient was more sleepy since last Thursday about 3 days ago. Yesterday she brought him to the PCP Dr. Beltran who referred him to the hospital. While in the hospital patient developed what looks like a seizure which started with the right hand especially the right index finger rhythmic movements progressed to the leg and then the whole body lasted about 15 minutes, later on he has a similar episodes which lasted also about 15 minutes. Neurologist was contacted and patient received IV Ativan as well as started on Keppra and Vimpat. As per he had some fever started about 102 but no more fever since then. He was complaining from headache and some abdominal pain, no other information available now As per he does not smoke or drink alcohol but he uses marijuana at nighttime to help him sleep Vitals reviewed and patient is afebrile and his "blood pressure is stable He has unremarkable CBC, BMP, LFT, INR, troponin. Urinalysis negative. Serum alcohol less than 10. Urine drug screen is positive for marijuana and benzodiazepine CT of the brain is negative for acute process Chest x-ray showed no acute cardiopulmonary process. CTA of the head and neck showing no dissection of the carotid or vertebral arteries. Intracranial occlusion or aneurysm. Review of Systems ROS unobtainable: due to mental status Past Medical History Past Medical History: No Reported History, Diabetes Mellitus, Hypertension Additional Past Medical History / Comment(s): Anxiety/Depression, sleep apnea History of Any Multi-Drug Resistant Organisms: None Reported Past Surgical History: Orthopedic Surgery Additional Past Surgical History / Comment(s): rt knee scope x2, pilonidal cyst removal Past Anesthesia/Blood Transfusion Reactions: No Reported Reaction Past Psychological History: No Psychological Hx Reported Smoking Status: Never smoker Past Alcohol Use History: Occasional Past Drug Use History: Marijuana - Past Family History Mother Family Medical History: Cancer Additional Family Medical History / Comment(s): pancreatic Medications and Allergies Home Medications Medication Instructions Recorded Confirmed Type lisinopriL [Prinivil] 10 mg PO DAILY 06/20/21 11/14/24 History Omeprazole Magnesium [PriLOSEC OTC] 20 mg PO DAILY 11/14/24 11/14/24 History Sertraline [Zoloft] 50 mg PO DAILY 11/14/24 11/14/24 History Allergies Allergy/AdvReac Type Severity Reaction Status Date / Time No Known Allergies Allergy Verified 11/14/24 15:44 Physical Exam Vitals: Vital Signs Temp Pulse Resp BP Pulse Ox 11/15/24 08:30 97.9 F 67 20 154/97 95 11/15/24 07:03 65 19 137/90 93 L 11/15/24 06:34 54 L 18 147/85 95 11/15/24 05:11 59 L 20 137/85 100 11/15/24 04:00 56 L 19 156/87 100 11/15/24 03:43 97.8 F 57 L 20 158/97 100 11/15/24 03:15 61 19 157/99 95 11/15/24 03:13 64 22 164/98 100 11/15/24 03:00 56 L 20 164/98 95 11/15/24 02:57 60 18 205/54 100 11/15/24 02:30 64 23 200/98 90 L 11/15/24 00:00 60 18 131/73 95 11/14/24 22:56 56 L 18 149/83 96 11/14/24 19:28 64 19 149/89 96 11/14/24 17:58 76 18 144/92 97 11/14/24 17:00 54 L 20 161/77 95 11/14/24 15:41 97.6 F 61 18 190/87 97 Intake and Output 11/14/24 11/15/24 11/15/24 22:59 06:59 14:59 Other: Weight 127.006 kg -GENERAL: The patient is sleepy, hard to awake up, not in any acute distress. Well developed, well nourished. Obese HEENT: Pupils are round and equally reacting to light. EOMI. No scleral icterus. No conjunctival pallor. Normocephalic, atraumatic. No pharyngeal erythema. No thyromegaly. CARDIOVASCULAR: S1 and S2 present. No murmurs, rubs, or gallops. PULMONARY: Chest is clear to auscultation, no wheezing , no crackles. ABDOMEN: Soft, nontender, nondistended, normoactive bowel sounds. No palpable organomegaly. MUSCULOSKELETAL: No joint swelling or deformity. EXTREMITIES: No cyanosis, clubbing, or pedal edema. NEUROLOGICAL: Gross neurological examination did not reveal any focal deficits. SKIN: No rashes. no petechiae. Results CBC & Chem 7: 11/14/24 16:54 11/14/24 16:54 Labs: Abnormal Lab Results - Last 24 Hours (Table) 11/14/24 11/14/24 11/14/24 Range/Units 15:49 16:29 16:54 Glucose 142 H (74-99) mg/dL POC Glucose (mg/dL) 137 H 155 H (70-110) mg/dL Ur Specific [place] (1.001-1.035) U Benzodiazepines Scrn (NotDetected) U Marijuana (THC) Screen (NotDetected) 11/14/24 11/14/24 11/14/24 Range/Units 22:56 22:56 23:17 Glucose (74-99) mg/dL POC Glucose (mg/dL) 126 H (70-110) mg/dL Ur Specific [place] 1.048 H (1.001-1.035) U Benzodiazepines Scrn Detected H (NotDetected) U Marijuana (THC) Screen Detected H (NotDetected) Assessment and Plan Assessment: Altered mental status secondary to seizure, postictal and possible metabolic encephalopathy Partial seizure x 2 Substance abuse with marijuana hypertension Diabetes mellitus Plan: Continue with seizure medication per neurologist team recommendation, currently he is placed on Vimpat and Keppra per the neurologist Continue neurocheck Continue Ativan as needed Continue with CPAP. Patient currently able to protect airway. Patient evaluated by pulmonary service as well Continue with insulin sliding scale Labs and medication were reviewed.. Continue same treatment. Continue with symptomatic treatment. Resume home medication. Monitor labs and vitals. DVT and GI prophylaxis. Further recommendations as per clinical course of the patient DVT prophylaxis: Subcutaneous heparin GI Prophylaxis: Pepcid Prognosis is guarded
[2024-11-15] MEDS: ACETAMINOPHEN TAB 325 MG TAB PO PRN (10:14)
[2024-11-15] MEDS: lisinopriL 10 MG TAB PO SCH (10:14)
[2024-11-15] MEDS: SERTRALINE 50 MG TAB PO SCH (10:14)
[2024-11-15] MEDS: PANTOPRAZOLE 40 MG TABLET PO SCH (10:15)
[2024-11-15 10:51] LABS: ABG Base Excess 0.8 mmol/L; ABG HCO3 25 mmol/L (21-25); ABG Oxygen Saturation 94.5 % (94-97); ABG PCO2 38 mmHg (35-45); ABG PH 7.43 (7.35-7.45); ABG PO2 79 mmHg (83-108); ABG TCO2 26 mmol/L (19-24); Allen Test Performed? Yes
[2024-11-15 11:20] LABS: Glucose,Whole Blood 105 mg/dL (70-110)
[2024-11-15] MEDS: INSULIN LISPRO (HumaLOG) 100 UNIT/ML 10 mL VL SQ SCH (11:23)
--- NOTE | 2024-11-15 12:14 | P.CNNES ---
History of Present Illness Consult date: 11/15/24 Requesting physician: Brandon Maldonado Reason for Consult: ams evaluate for new onset seizure History of Present Illness: This is a 44 year-old gentleman with history of seizure who is not on antiseizure medication, DM and HTN who noncompliant with medication because of insurance issues who presents to the emergency department because of altered mental status and seizure-like activity. Some of the history is obtained from his who is at beside. She stated since this past weekend he has been sleepy and does not want to wake up. Then she noticed he had right arm tremor then transitioned to left lower extremity and drooling. He has mild headache over the bilateral frontal and occipital region. No nausea or vomiting. States headache is 2/10. Could not describe headaches. Could not tell me more about headaches. No recent sickness, no focal weakness. No recent travel. Patient uses occasional marijuana. Rarely drinks alcohol. Denies tobacco use or illicit drug use. Per the currently he is more awake now and seems better. He has not been getting DM medication over the past 4 weeks since she lost insurance and has missed HTN medication over the past couple days. He had seizure-like activity about 10 years ago and 2 years ago and she denies him being on antiseizure medication since was not notified that he needed to follow-up with neurologist as outpatient. stated he was in ED in past for seizure-like activity and was notified maybe one of episode could have been TIA because of speech difficulty. Overnight I was paged by the nurse that patient received Keppra 1gm by ED and received Ativan and patient continues not to be responsive. Then later I was notified by nurse that patient had tremor of the arm. As result patient received 4mg Ativan and Keppra 1gm and Vimpat 200mg once. Some of the work-up during this hospital visit consisted of: Initial blood pressure: 190/87 Patient is afebrile. CBC with diff is unremarkable. Chemistry panel: Initial POC glucose is 137 Otherwise rest of chemistry panel are unremarkable. CT head: Reported as No acute intracranial hemorrhage or midline shift. I personally reviewed CT head and agree with report. CTA head and neck: NO evidence of dissection of cervical internal carotid arteries or vertebral arteries. No any evidence of significant stenosis at the carotid bifurcation. No evidence of intracranial large vessel occlusion or intracranial aneurysm. Review of Systems As per HPI. Past Medical History Past Medical History: No Reported History, Diabetes Mellitus, Hypertension Additional Past Medical History / Comment(s): Anxiety/Depression, sleep apnea History of Any Multi-Drug Resistant Organisms: None Reported Past Surgical History: Orthopedic Surgery Additional Past Surgical History / Comment(s): rt knee scope x2, pilonidal cyst removal Past Anesthesia/Blood Transfusion Reactions: No Reported Reaction Past Psychological History: No Psychological Hx Reported Smoking Status: Never smoker Past Alcohol Use History: Occasional Past Drug Use History: Marijuana - Past Family History Mother Family Medical History: Cancer Additional Family Medical History / Comment(s): pancreatic Medications and Allergies Home Medications Medication Instructions Recorded Confirmed Type lisinopriL [Prinivil] 10 mg PO DAILY 06/20/21 11/14/24 History Omeprazole Magnesium [PriLOSEC OTC] 20 mg PO DAILY 11/14/24 11/14/24 History Sertraline [Zoloft] 50 mg PO DAILY 11/14/24 11/14/24 History Allergies Allergy/AdvReac Type Severity Reaction Status Date / Time No Known Allergies Allergy Verified 11/14/24 15:44 Physical Examination - Vital Signs Vital Signs: Vital Signs Temp Pulse Resp BP Pulse Ox 11/15/24 10:52 66 20 168/92 95 11/15/24 08:30 97.9 F 67 20 154/97 95 11/15/24 07:03 65 19 137/90 93 L 11/15/24 06:34 54 L 18 147/85 95 11/15/24 05:11 59 L 20 137/85 100 11/15/24 04:00 56 L 19 156/87 100 11/15/24 03:43 97.8 F 57 L 20 158/97 100 11/15/24 03:15 61 19 157/99 95 11/15/24 03:13 64 22 164/98 100 11/15/24 03:00 56 L 20 164/98 95 11/15/24 02:57 60 18 205/54 100 11/15/24 02:30 64 23 200/98 90 L 11/15/24 00:00 60 18 131/73 95 11/14/24 22:56 56 L 18 149/83 96 11/14/24 19:28 64 19 149/89 96 11/14/24 17:58 76 18 144/92 97 11/14/24 17:00 54 L 20 161/77 95 11/14/24 15:41 97.6 F 61 18 190/87 97 Intake and Output 11/14/24 11/15/24 11/15/24 22:59 06:59 14:59 Other: Weight 127.006 kg General: Is a morbid obese, lying in bed and is not in acute distress. HENT: Supple neck. Neuro: The patient is drowsy and is awakeable to voice. Is oriented to self, place and time. Is following simple commands. No aphasia. Pupils are 3mm, round and reactive to light. Visual ruff are full to confrontation. EOM with limitation no nystagmus. Normal facial sensation to touch. No facial weakness. No dysarthria. Tongue is midline and moves side to side without difficulty. Motor: With limitation in strength is lifting all extremities above gravity symmetrically. Normal tone and bulk. Sensation: Normal to touch throughout. Reflex: 2+ in uppers while lowers limited. Plantars: Mute. Results - Laboratory Findings CBC and BMP: 11/14/24 16:54 11/14/24 16:54 Abnormal Lab Findings: Abnormal Labs 11/14/24 11/14/24 11/14/24 15:49 16:29 16:54 ABG pO2 ABG Total CO2 Glucose 142 H POC Glucose (mg/dL) 137 H 155 H Ur Specific [place] U Benzodiazepines Scrn U Marijuana (THC) Screen 11/14/24 11/14/24 11/14/24 22:56 22:56 23:17 ABG pO2 ABG Total CO2 Glucose POC Glucose (mg/dL) 126 H Ur Specific [place] 1.048 H U Benzodiazepines Scrn Detected H U Marijuana (THC) Screen Detected H 11/15/24 10:46 ABG pO2 79 L ABG Total CO2 26 H Glucose POC Glucose (mg/dL) Ur Specific [place] U Benzodiazepines Scrn U Marijuana (THC) Screen Assessment and Plan Assessment: This is a 44 y/o gentleman with hx of seizure who is not on Antiepileptic seizures, HTN and DM who has been having insurance issues as result not receiving his DM and HTN medication who presents because of confusion/sleepy and seizure-like activity. Clinical status epilepticus. Likely has Breakthrough seizure: Provoked due to multifactorial: Not on antiseizure medication as well uncontrolled HTN and DM since not getting his medication because insurance issues. AMS due to above, hypertensive encephalopathy Hypertensive urgency History of seizure (2 and 10 years ago) and not on antiseizure medications DM Hypertension History of Sleep Apnea and is on CPAP. Medication non compliance due to insurance issues Morbid obesity Marijuana use Plan: Agree with Keppra 750mg every 12 hours started by ED team. He received loading dose of Keppra, Vimpat and multiple Ativan. I notified to patient and his about side-effects of Keppra that it can cause moodiness/behavioral issues and if does recommend switching to Vimpat. EEG completed and pending to be read. Ordered MRI Brain w/ and w/o seizure protocol Ativan 1mg every 4 hours PRN for seizure Seizure precaution and pads. Per [place] because of seizure, avoid driving for 6 months until seizure free, avoid heights, avoid swimming unassisted or using heavy machinery. ICU team was consulted overnight since he was having prolonged confusion and multiple seizure-like activity. I spoke with ICU team and they feel not candidate for ICU at this time since doing better. Will defer the rest of medical management to primary team. Upon discharge, recommend the patient to follow-up with neurologist as outpatien t within 2-3 weeks. The plan is discussed with patient, his and ICU attending. Thank you for the consultation. ADDENDUM: Routine EEG is negative for seizure or discharges I was updated while he was in MRI he had further seizure like activity with arm tremor, nonresponsive Patient was given Ativan 2mg once. I increased Keppra to 1250mg every 12 hours. Recommend patient to be transferred to ICU. Recommend transfer to a tertiary center for prolonged EEG to capture his episodes to rule out epileptic vs nonepileptic in nature. Time with Patient: Greater than 30
[2024-11-15 12:54] LABS: Glucose,Whole Blood 94 mg/dL (70-110)
[2024-11-15] MEDS: LORazepam 2 MG/ML INJ IV STA (12:54)
[2024-11-15] MEDS: levETIRAcetam IV 500 MG/5 ML VIAL IVP SCH ×2 (13:24→13:27)
--- NOTE | 2024-11-15 13:27 | MR ---
EXAMINATION TYPE: MR brain wo con DATE OF EXAM: 11/15/2024 12:57 PM COMPARISON: None. CLINICAL INDICATION: Male, 44 years old with history of seizure, Seizures TECHNIQUE: Multiplanar, multiecho imaging on a 3.0 Cesia magnet is performed through the brain. Stud y is performed within 24 hours of arrival to the hospital.Multiplanar, multiecho imaging on a 3.0 [place] la magnet is performed through the brain. Images are limited as the patient's seizure within the scan ner and the procedure was aborted at that time. Some motion artifact is evident on the T2-weighted im aging IV Contrast: mL (None, if empty) FINDINGS: The craniovertebral junction is normal. The pituitary is normal. Diffusion-weighted imaging is performed. No abnormal hyperintensity is present to suggest an acute i ntracranial infarct or acute ischemic change. Signal within the brain appears normal. Temporal lobes appear symmetrical Ventricles and sulci are appropriate for the patient age. IMPRESSION: 1. No acute intracranial process evident on the limited examination. 2. Procedure aborted early due to seizure inside the scanner. [facility], , 11/15/2024 1:25 PM
[2024-11-15 17:10] LABS: Glucose,Whole Blood 87 mg/dL (70-110)
[2024-11-15] MEDS ORDERED: hydrALAZINE HCL 20 MG/ML 1 ML VIAL IVP PRN (17:27)
[2024-11-15] MEDS: amLODIPine 5 MG TAB PO STA (17:34)
[2024-11-15] MEDS: LORazepam 1 MG/0.5 ML VIAL IV PRN (18:16)
[2024-11-15 18:34] LABS: Glucose,Whole Blood 100 mg/dL (70-110)
[2024-11-15] MEDS: HEPARIN SODIUM,PORCINE 5,000 UNIT/ML 1 ML VIAL SQ SCH (20:13)
[2024-11-15] MEDS: FAMOTIDINE 20 MG/2 ML VIAL IV SCH (20:14)
[2024-11-15 20:59] VITALS: TEMP 97.5
[2024-11-15 21:02] VITALS: BP 148/81; PULSE 57; RESP 16
--- NOTE | 2024-11-15 23:00 | EEG ---
ELECTROENCEPHALOGRAM REPORT CLINICAL HISTORY: This is a 44-year-old gentleman with history of seizures, who presents to the emergency department because of altered mental status, and the patient had multiple seizure-like activity. The video EEG is obtained to evaluate for seizure epileptiform activity. RELEVANT MEDICATIONS: 1. Keppra. 2. Vimpat. 3. Ativan. EEG TYPE: This is a routine 21-channel EEG with video using the 10/20 electrode placement system. DESCRIPTION: It is hard to assess the patient's background since the patient was in a drowsy state throughout the study. There is no physiological stage 2 sleep architecture. There is no focal slowing. There is mild diffuse myogenic artifact. There is diffuse excessive beta activity. His Interictal and ictal is none. ACTIVATION PROCEDURE: Photic stimulation did not evoke a posterior driving response. There is no abnormality during the photic stimulation. Hyperventilation is not performed. CLINICAL INTERPRETATION: This is an abnormal routine EEG during drowsy state. It is hard to assess the background since the patient is in a drowsy state. Otherwise, there is no focal slowing, epileptiform discharge, or seizure on the EEG. The excessive beta activity is likely due to medication effect (benzos). Clinical correlation is recommended. MMODL / IJN: [id number] / CHIP
[2024-11-16] MEDS ORDERED: amLODIPine 5 MG TAB PO SCH (09:00)
== END 2024-11-16 06:25 | disposition short-term general hospital (02) | DRG 100 ==
LOC: EC 15:31 → 6NMEDSUR 19:32 → OBSVTOIN 19:33 → 6NMEDSUR 20:52 → 3SCARD 11-15 05:16 → 2SICU 11-15 13:00
PROVIDERS: ADMIT Internal Medicine; ATTEND Internal Medicine
DX: G40.101 Localization-related (focal) (partial) symptomatic epilepsy and epileptic syndromes with simple partial seizures, not intractable, with status epilepticus (principal); G93.41 Metabolic encephalopathy; I67.4 Hypertensive encephalopathy; E66.01 Morbid (severe) obesity due to excess calories; E11.9 Type 2 diabetes mellitus without complications; F12.10 Cannabis abuse, uncomplicated; F32.A Depression, unspecified; I10 Essential (primary) hypertension; Z68.38 Body mass index [BMI] 38.0-38.9, adult; I16.0 Hypertensive urgency; F41.9 Anxiety disorder, unspecified; G47.33 Obstructive sleep apnea (adult) (pediatric); Z59.71 Insufficient health insurance coverage; T46.4X6A Underdosing of angiotensin-converting-enzyme inhibitors, initial encounter; T38.3X6A Underdosing of insulin and oral hypoglycemic [antidiabetic] drugs, initial encounter; Z91.128 Patient's intentional underdosing of medication regimen for other reason; Z79.899 Other long term (current) drug therapy
CPT/HCPCS: 36415; 36600; 70450; 70496; 70498; 70551; 71045; 80053; 80306; 80320; 81003; 82805; 84484; 85025; 85610; 85730; 93005; 95819; 96361; 96365; 96375; 96376; 99285

== ENCOUNTER → 2024-12-19 | Outpatient (CLI) | payer BC ==
[2024-12-19 16:48] VITALS: BP 133/86; PULSE 84; RESP 16; TEMP 98.2
--- NOTE | 2024-12-19 17:21 | P.PROGSL ---
Subjective DATE: 12/19/2024 FOLLOW UP VISIT. Patient with obstructive sleep apnea hypopnea syndrome return to sleep center for follow-up visit. Information from previous visit have been reviewed. Generally patient was in the hospitalization for right side weakness and seizures. Patient is using PAP equipment every night for the whole night, getting PAP s upplies in time. The patient does not have significant problems with the mask, PAP unit and humidification. While in the hospital patient and family was told that during the night it was documented oxygen desaturation while patient was on treatment with CPAP. Patient was recommended to talk to his sleep physician and possibly to repeat CPAP titration. [place] sleepiness scale is 5, which is normal. I checked information from PAP unit. PAP unit pressure 13 cm H2O. Usage is 100% for more then 4 hours, average 7 hours per night. Leak is significantly increased to 73.4 l/m, which is in acceptable range. Apnea Hypopnea Index is 6, which is normal. MEDICATIONS have been reviewed, please see below. During physical exam: GENERAL: A pleasant patient without any distress. VITAL SIGNS: Please see below, weight is 267 lbs. HEENT: PERRLA, EOMI.low position of soft palate, Mallapati 3. NECK: Supple. No JVD. LUNGS: Clear to percussion and to auscultation. Good air exchange. No wheezing o r rhonchi. HEART: S1, S2 regular. ABDOMEN: Soft and nontender.[] EXTREMITIES: No clubbing or cyanosis. 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 No focal deficit. Impressions: 1. Obstructive sleep apnea-hypopnea syndrome. Patient demonstrated great compliance with treatment, benefiting from treatment. According to family while in the hospital during the night patient had oxygen desaturation at the time when he was on treatment with CPAP. 2. Mild obesity, weight 267 pounds, BMI 36.0, patient lost 6 pounds comparing with the previous visit. 3. History of right side weakness. Patient was in another hospital with possible stroke. 4. History of seizure disorder. 5. Hypertension. 6. Diabetes mellitus. 7. Acid reflux. 8. Status post right knee surgery. I changed parameter of CPAP to AutoPap with a range of pressure 11 to 16 cm of water. Patient should replace his mask. Plan: 1. Continue using PAP equipment every night for the whole night. 2. Sleep hygiene with regular time in bed for at least 7.5-8 hours 3. Repeat PAP titration. It was documented oxygen desaturation while patient was on treatment with CPAP in the hospital recently. 4. Advised patient to remove all remaining water from humidifier canister daily and make it dry after each usage. Refill canister with fresh distilled water before each usage. 5. Watching and losing weight. 6. Precautions related to driving. No driving if feel any sleepiness. 7. I will maintain prescription for PAP supplies including mask, tube, filters. 8. Following plan after reading PAP titration. Thank you very much for allowing me to participate in the management of your patient. Alan Harris MD, PhD, FAASM. Diplomat of [place] [employer], Sleep Medicine Board by [place] [employer] [facility] [place] cc: Jigar Beltran MD Objective - Vital Signs Vital Signs: Vital Signs Temp 98.2 F 12/19/24 16:42 Pulse 84 12/19/24 16:42 Resp 16 12/19/24 16:42 BP 133/86 12/19/24 16:42 Pulse Ox 96 12/19/24 16:42 FiO2 Intake & Output 12/18/24 12/19/24 12/19/24 18:59 06:59 18:59 Weight 121.109 kg Home Medications: Home Medications Medication Instructions Recorded Confirmed Type lisinopriL [Prinivil] 20 mg PO DAILY 06/20/21 12/19/24 History Omeprazole Magnesium [PriLOSEC OTC] 20 mg PO DAILY 11/14/24 12/19/24 History Sertraline [Zoloft] 50 mg PO DAILY 11/14/24 12/19/24 History Empagliflozin [Jardiance] 25 mg PO DAILY 12/19/24 12/19/24 History Lacosamide 200 mg PO DAILY 12/19/24 12/19/24 History Tirzepatide [Mounjaro] 5 mg SQ WEEKLY 12/19/24 12/19/24 History
== END ==
LOC: 3 N SLEEP 16:30
PROVIDERS: ATTEND Internal Medicine
DX: G47.33 Obstructive sleep apnea (adult) (pediatric) (principal); E66.9 Obesity, unspecified; I10 Essential (primary) hypertension; E11.9 Type 2 diabetes mellitus without complications; K21.9 Gastro-esophageal reflux disease without esophagitis; Z86.69 Personal history of other diseases of the nervous system and sense organs; Z96.651 Presence of right artificial knee joint; Z68.36 Body mass index [BMI] 36.0-36.9, adult; Z99.89 Dependence on other enabling machines and devices
CPT/HCPCS: 99212

== ENCOUNTER 2025-02-12 21:30 | Observation (INO) | payer BC ==
[2025-02-12] MEDS: MIDAZOLAM 2 MG/2 ML VIAL IVP ONE (21:48)
[2025-02-12] MEDS: levETIRAcetam IV 500 MG/5 ML VIAL IVP ONE (21:48)
--- NOTE | 2025-02-12 21:48 | ED ---
Seizure HPI - General Chief Complaint: Seizure Stated Complaint: Seizure Time Seen by Provider: 02/12/25 21:41 Source: EMS, RN notes reviewed, old records reviewed, Caregiver Mode of arrival: EMS Limitations: altered mental status, physical limitation - History of Present Illness Initial Comments: This is a 44-year-old male with history of seizures coming in for acute seizing episode. Patient is on about 20 minutes of seizure per EMS and continued to seize here in the emergency room patient was given Versed 10 mg IM no IV MD Complaint: seizure -: minutes(s) (20) Description of Episode: loss of consciousness, tonic-clonic movement -: second(s) Witnessed: yes - by bystander, yes - by EMS, yes - by other (Persistent seizure here in the ER) Seizure History: known seizure disorder Place: home, work Associated Symptoms: denies other symptoms - Related Data Home Medications Medication Instructions Recorded Confirmed Omeprazole Magnesium [PriLOSEC OTC] 20 mg PO DAILY 11/14/24 02/13/25 Sertraline [Zoloft] 150 mg PO DAILY 11/14/24 02/13/25 Lacosamide 200 mg PO BID 12/19/24 02/13/25 Tirzepatide [Mounjaro] 5 mg SQ FR 12/19/24 02/13/25 lisinopriL [Zestril] 20 mg PO DAILY 02/13/25 02/13/25 Allergies Allergy/AdvReac Type Severity Reaction Status Date / Time No Known Allergies Allergy Verified 11/14/24 15:44 Review of Systems ROS Statement: Those systems with pertinent positive or pertinent negative responses have been documented in the HPI. ROS Other: All systems not noted in ROS Statement are negative. Past Medical History Past Medical History: No Reported History, Diabetes Mellitus, Hypertension, Sleep Apnea/CPAP/BIPAP Additional Past Medical History / Comment(s): Anxiety/Depression; Seizure 10 years ago 2014; seizure 2 years ago 2022 History of Any Multi-Drug Resistant Organisms: None Reported Past Surgical History: Orthopedic Surgery Additional Past Surgical History / Comment(s): rt knee scope x2, pilonidal cyst removal Past Anesthesia/Blood Transfusion Reactions: No Reported Reaction, Previous Problems w/ Anesthesia Additional Past Anesthesia/Blood Transfusion Reaction / Comment(s): very nauseated with anesthesia, even with zofran Past Psychological History: ADD/ADHD, Anxiety, Depression Smoking Status: Never smoker - Past Family History Mother Family Medical History: Cancer Additional Family Medical History / Comment(s): pancreatic General Exam Limitations: altered mental status, physical limitation General appearance: alert, in no apparent distress Head exam: Present: atraumatic, normocephalic, normal inspection Eye exam: Present: normal appearance, PERRL, EOMI. Absent: scleral icterus, conjunctival injection, periorbital swelling ENT exam: Present: normal exam, mucous membranes moist Neck exam: Present: normal inspection. Absent: tenderness, meningismus, lymphadenopathy Respiratory exam: Present: normal lung sounds bilaterally. Absent: respiratory distress, wheezes, rales, rhonchi, stridor Cardiovascular Exam: Present: regular rate, normal rhythm, normal heart sounds. Absent: systolic murmur, diastolic murmur, rubs, gallop, clicks GI/Abdominal exam: Present: soft, normal bowel sounds. Absent: distended, tenderness, guarding, rebound, rigid Extremities exam: Present: normal inspection, full ROM, normal capillary refill. Absent: tenderness, pedal edema, joint swelling, calf tenderness Back exam: Present: normal inspection Neurological exam: Present: alert, oriented X3, CN II-XII intact Psychiatric exam: Present: normal affect, normal mood Skin exam: Present: warm, dry, intact, normal color. Absent: rash Course Vital Signs 02/12/25 02/13/25 02/13/25 21:35 00:19 04:00 Temperature 97.3 F L Pulse Rate 101 H 63 66 Respiratory 20 16 18 Rate Blood Pressure 166/133 167/86 146/82 O2 Sat by Pulse 100 99 98 Oximetry 02/13/25 02/13/25 02/13/25 05:56 07:20 08:28 Temperature Pulse Rate 50 L 60 67 Respiratory 18 16 16 Rate Blood Pressure 155/90 121/74 150/81 O2 Sat by Pulse 98 100 98 Oximetry 02/13/25 02/13/25 02/13/25 09:00 11:00 13:00 Temperature Pulse Rate 66 65 81 Respiratory 20 16 18 Rate Blood Pressure 149/80 150/85 149/82 O2 Sat by Pulse 98 98 98 Oximetry 02/13/25 02/13/25 15:35 18:00 Temperature Pulse Rate 63 78 Respiratory 18 18 Rate Blood Pressure 141/84 149/78 O2 Sat by Pulse 98 98 Oximetry - Reevaluation(s) Reevaluation #1: 02/12/25 22:56 Medical records reviewed Reevaluation #2: 02/13/25 00:44 Patient has no recurrent seizure activity here in the ER after initial seizure but somnolence likely from medications he is arousable Spoke with family at bedside he was given Keppra here in the ER they do not want patient to receive Keppra as it gives him bad side effects She also states this is probably his third seizure, no seizure medications Reevaluation #3: 02/13/25 00:44 Patient and family informed of results questions answered Reevaluation #4: Was pt. sent in by a medical professional or institution (, MARQUITA, [employer], urgent care, hospital, or alf...) When possible be specific @ -no Did you speak to anyone other than the patient for history (EMS, parent, family, police, friend...)? What history was obtained from this source @ -no Did you review nursing and triage notes (agree or disagree)? Why? @ -agree Are old charts reviewed (outside hosp., previous admission, EMS record, old EKG, old radiological studies, urgent care reports/EKG's, alf records)? Report findings @ -yes Differential Diagnosis (chest pain, altered mental status, abdominal pain women, abdominal pain men, vaginal bleeding, weakness, fever, dyspnea, syncope, headache, dizziness, GI bleed, back pain, seizure, CVA, palpatations, mental health, musculoskeletal)? @ -prior EKG interpreted by me (3pts min.). @ -yes X-rays interpreted by me (1pt min.). @ -no CT interpreted by me (1pt min.). @ -yes negative for acute disease U/S interpreted by me (1pt. min.). @ -no What testing was considered but not performed or refused? (CT, X-rays, U/S, labs)? Why? @ -none What meds were considered but not given or refused? Why? @ -none Did you discuss the management of the patient with other professionals (professionals i.e. MARQUITA Arevalo, [employer], lab, RT, psych nurse, social work faculty member, teacher selection specialist, teacher, contracts officer, case supervisor)? Give summary @ -no Was smoking cessation discussed for >3mins.? @ -no Was critical care preformed (if so, how long)? @ -no Were there social determinants of health that impacted care today? How? (Homelessness, low income, unemployed, alcoholism, drug addiction, transportation, low edu. Level, literacy, decrease access to med. care, alf, rehab)? @ -none Was there de-escalation of care discussed even if they declined (Discuss DNR or withdrawal of care, Hospice)? DNR status @ -no What co-morbidities impacted this encounter? (DM, HTN, Smoking, COPD, CAD, Cancer, CVA, ARF, Chemo, Hep., AIDS, mental health diagnosis, sleep apnea, morbid obesity)? @ -none Was patient admitted / discharged? Hospital course, mention meds given and route, prescriptions, significant lab abnormalities, going to OR and other pertinent info. @ - 44 male this patient will be admitted for recurrent seizure activity intractable seizure disorder neurological evaluation prolonged postictal period and somnolence secondary to medications Admitted Undiagnosed new problem with uncertain prognosis? @ -no Drug Therapy requiring intensive monitoring for toxicity (Heparin, Nitro, Insulin, Cardizem)? @ -no Were any procedures done? @ -no Diagnosis/symptom? @ -Recurrent seizures Acute, or Chronic, or Acute on Chronic? @ -Acute Uncomplicated (without systemic symptoms) or Complicated (systemic symptoms)? @ -Complicated Side effects of treatment? @ -no Exacerbation, Progression, or Severe Exacerbation? @ -exacerbation Poses a threat to life or bodily function? How? (Chest pain, USA, NH, pneumonia, PE, COPD, DKA, ARF, appy, cholecystitis, CVA, Diverticulitis, Homicidal, Suicidal, threat to staff... and all critical care pts) @ -yes significant seizure activity Reevaluation #5: Differential Seizure: Recurrent seizure disorder, febrile seizure, alcohol withdrawal, stimulants, meningitis, encephalitis, intercranial hemorrhage, intracranial tumor, stroke, eclampsia, thyrotoxicosis, hypocalcemia, hyponatremia, hypernatremia, hypomagnesemia, psychogenic, this is not meant to be an all-inclusive list. - Consultations Consultation #1: Spoke with [facility] [place] who agrees to admit this patient Medical Decision Making - Medical Decision Making 44 male this patient will be admitted for recurrent seizure activity intractable seizure disorder neurological evaluation prolonged postictal period and somnolence secondary to medications - Lab Data Result diagrams: 02/14/25 05:36 02/14/25 05:36 Lab Results 02/12/25 02/12/25 02/12/25 Range/Units 21:53 21:53 22:07 WBC 7.06 (4.50-10.00) 10*3/uL RBC 4.72 (4.40-5.60) 10*6/uL Hgb 13.8 (13.0-17.0) g/dL Hct 39.5 L (39.6-50.0) % MCV 83.7 (80.0-97.0) fL MCH 29.2 (27.0-32.0) pg MCHC 34.9 (32.0-37.0) g/dL Plt Count 212 (140-440) 10*3/uL MPV 10.9 (9.5-12.2) fL Immature Gran % (Auto) 0.1 % Neutrophils % 64.4 % Lymphocytes % 28.5 % Monocytes % 5.7 % Eosinophils % 0.7 % Basophils % 0.6 % Immature Gran # 0.01 (0.00-0.04) 10*3/uL Neutrophils # 4.55 (1.80-7.70) 10*3/uL Lymphocytes # 2.01 (0.90-5.00) 10*3/uL Monocytes # 0.40 (0.20-1.00) 10*3/uL Eosinophils # 0.05 (0.04-0.35) 10*3/uL Basophils # 0.04 (0.00-0.10) 10*3/uL Sodium 141 (137-145) mmol/L Potassium 4.5 (3.5-5.1) mmol/L Chloride 109 H (98-107) mmol/L Carbon Dioxide 20 L (22-30) mmol/L Anion Gap 12 mmol/L BUN 13 (9-20) mg/dL Creatinine 0.75 (0.66-1.25) mg/dL Est GFR (CKD-EPI)AfAm >90 (>60 ml/min/1.73 sqM) Est GFR (CKD-EPI)NonAf >90 (>60 ml/min/1.73 sqM) Glucose 121 H (74-99) mg/dL POC Glucose (mg/dL) 98 (70-110) mg/dL POC Glu [employer] Calcium 9.2 (8.4-10.2) mg/dL Magnesium 2.1 (1.6-2.3) mg/dL Total Bilirubin 0.5 (0.2-1.3) mg/dL AST 30 (17-59) U/L ALT 22 (4-49) U/L Alkaline Phosphatase 71 (38-126) U/L Total Protein 7.0 (6.3-8.2) g/dL Albumin 4.6 (3.5-5.0) g/dL Urine Color Urine Appearance (Clear) Urine pH (5.0-8.0) Ur Specific [place] (1.001-1.035) Urine Protein (Negative) Urine Glucose (UA) (Negative) Urine Ketones (Negative) Urine Blood (Negative) Urine Nitrite (Negative) Urine Bilirubin (Negative) Urine Urobilinogen (<2.0) mg/dL Ur Leukocyte Esterase (Negative) Salicylates <1.0 mg/dL Urine Opiates Screen (NotDetected) Ur Oxycodone Screen (NotDetected) Urine Methadone Screen (NotDetected) Acetaminophen <10.0 ug/mL Ur Barbiturates Screen (NotDetected) U Tricyclic Antidepress (NotDetected) Ur Phencyclidine Scrn (NotDetected) Ur Amphetamines Screen (NotDetected) U Methamphetamines Scrn (NotDetected) U Benzodiazepines Scrn (NotDetected) Urine Cocaine Screen (NotDetected) U Marijuana (THC) Screen (NotDetected) Serum Alcohol <10 mg/dL 02/13/25 Range/Units 02:30 WBC (4.50-10.00) 10*3/uL RBC (4.40-5.60) 10*6/uL Hgb (13.0-17.0) g/dL Hct (39.6-50.0) % MCV (80.0-97.0) fL MCH (27.0-32.0) pg MCHC (32.0-37.0) g/dL Plt Count (140-440) 10*3/uL MPV (9.5-12.2) fL Immature Gran % (Auto) % Neutrophils % % Lymphocytes % % Monocytes % % Eosinophils % % Basophils % % Immature Gran # (0.00-0.04) 10*3/uL Neutrophils # (1.80-7.70) 10*3/uL Lymphocytes # (0.90-5.00) 10*3/uL Monocytes # (0.20-1.00) 10*3/uL Eosinophils # (0.04-0.35) 10*3/uL Basophils # (0.00-0.10) 10*3/uL Sodium (137-145) mmol/L Potassium (3.5-5.1) mmol/L Chloride (98-107) mmol/L Carbon Dioxide (22-30) mmol/L Anion Gap mmol/L BUN (9-20) mg/dL Creatinine (0.66-1.25) mg/dL Est GFR (CKD-EPI)AfAm (>60 ml/min/1.73 sqM) Est GFR (CKD-EPI)NonAf (>60 ml/min/1.73 sqM) Glucose (74-99) mg/dL POC Glucose (mg/dL) (70-110) mg/dL POC Glu [employer] ID Calcium (8.4-10.2) mg/dL Magnesium (1.6-2.3) mg/dL Total Bilirubin (0.2-1.3) mg/dL AST (17-59) U/L ALT (4-49) U/L Alkaline Phosphatase (38-126) U/L Total Protein (6.3-8.2) g/dL Albumin (3.5-5.0) g/dL Urine Color Yellow Urine Appearance Clear (Clear) Urine pH 6.0 (5.0-8.0) Ur Specific [place] 1.028 (1.001-1.035) Urine Protein Negative (Negative) Urine Glucose (UA) Negative (Negative) Urine Ketones Negative (Negative) Urine Blood Negative (Negative) Urine Nitrite Negative (Negative) Urine Bilirubin Negative (Negative) Urine Urobilinogen 3.0 (<2.0) mg/dL Ur Leukocyte Esterase Negative (Negative) Salicylates mg/dL Urine Opiates Screen Detected H (NotDetected) Ur Oxycodone Screen Not Detected (NotDetected) Urine Methadone Screen Not Detected (NotDetected) Acetaminophen ug/mL Ur Barbiturates Screen Not Detected (NotDetected) U Tricyclic Antidepress Not Detected (NotDetected) Ur Phencyclidine Scrn Not Detected (NotDetected) Ur Amphetamines Screen Not Detected (NotDetected) U Methamphetamines Scrn Not Detected (NotDetected) U Benzodiazepines Scrn Detected H (NotDetected) Urine Cocaine Screen Not Detected (NotDetected) U Marijuana (THC) Screen Detected H (NotDetected) Serum Alcohol mg/dL - EKG Data -: EKG Interpreted by Me (EKG sinus 92 LA 180 QRS 106 QTc 386) - Radiology Data Radiology results: report reviewed (CT brain negative for acute disease), image reviewed Critical Care Time Critical Care Time: Yes Total Critical Care Time: 31 Disposition Clinical Impression: Epileptic seizure, generalized, Generalized seizure, Status epilepticus, Postictal coma Disposition: ADMITTED IP TO THIS [facility] Condition: Fair Is patient prescribed a controlled substance at d/c from ED?: No Time of Disposition: 00:45
[2025-02-12] MEDS: levETIRAcetam IV 500 MG/5 ML VIAL IVP STA (21:51)
[2025-02-12] MEDS: SODIUM CHLORIDE 0.9% 500 ML 500 ML IV STA (21:51)
[2025-02-12 22:02] LABS: Basophils # (A) 0.04 10*3/uL (0.00-0.10); Basophils % (A) 0.6 %; Eosinophils # (A) 0.05 10*3/uL (0.04-0.35); Eosinophils % (A) 0.7 %; HCT 39.5 % (39.6-50.0); HGB 13.8 g/dL (13.0-17.0); Lymphocytes # (A) 2.01 10*3/uL (0.90-5.00); Lymphocytes % (A) 28.5 %; MCH 29.2 pg (27.0-32.0); MCHC 34.9 g/dL (32.0-37.0); MCV 83.7 fL (80.0-97.0); Monocytes # (A) 0.40 10*3/uL (0.20-1.00); Monocytes % (A) 5.7 %; Neutrophils # (A) 4.55 10*3/uL (1.80-7.70); Neutrophils % (A) 64.4 %; Platelet Count 212 10*3/uL (140-440); RBC 4.72 10*6/uL (4.40-5.60); RDW 14.2 % (11.5-14.5); WBC 7.06 10*3/uL (4.50-10.00)
[2025-02-12 22:10] LABS: Glucose,Whole Blood 98 mg/dL (70-110)
[2025-02-12] MEDS: LORazepam 1 MG/0.5 ML VIAL IV STA (22:26)
[2025-02-12] MEDS: DEXTROSE 50% SYRINGE 50 ML IVP STA (22:28)
[2025-02-12 22:39] LABS: ALT 22 U/L (4-49); Acetaminophen <10.0 ug/mL; African American GFR (CKD) >90 (>60 ml/min/1.73 sqM); Albumin 4.6 g/dL (3.5-5.0); Anion Gap 12 mmol/L; Blood Urea Nitrogen 13 mg/dL (9-20); Calcium 9.2 mg/dL (8.4-10.2); Carbon Dioxide 20 mmol/L (22-30); Chloride 109 mmol/L (98-107); Glucose 121 mg/dL (74-99); Non-African American GFR(CKD) >90 (>60 ml/min/1.73 sqM); Salicylate <1.0 mg/dL; Sodium 141 mmol/L (137-145); Total Protein 7.0 g/dL (6.3-8.2)
[2025-02-12 22:49] LABS: AST 30 U/L (17-59); Alkaline Phosphatase 71 U/L (38-126); Magnesium 2.1 mg/dL (1.6-2.3); Potassium 4.5 mmol/L (3.5-5.1)
[2025-02-13] MEDS: SODIUM CHLORIDE 0.9% 1,000 ML IV STA (00:05)
--- NOTE | 2025-02-13 00:34 | CT ---
EXAM: CT Head Without Intravenous Contrast CLINICAL HISTORY: seizure activity. TECHNIQUE: Axial computed tomography images of the head/brain without intravenous contrast. Coronal and sagittal reconstructions are performed. CTDI is 49. 2 mGy and DLP is 1235.4 mGy-cm. This CT exam was performed using one or more of the following dose reduction techniques: automated exposure control, adjustment of the mA and/or kV according to patient size, and/or use of iterative reconstruction technique. 314 images COMPARISON: 11/14/24. FINDINGS: Brain: Unremarkable. No hemorrhage. No significant white matter disease. No edema. Ventricles: Unremarkable. No ventriculomegaly. Bones/joints: No acute findings. Soft tissues: 5 mm cutaneous calcification over right cheek, unchanged. Sinuses: Mild mucosal thickening in posterior left maxillary sinus. Mastoid air cells: Unremarkable as visualized. No mastoid effusion. IMPRESSION: No acute findings in the head/brain.
[2025-02-13 02:58] LABS: Bilirubin,Urine Negative (Negative); Blood,Urine Negative (Negative); Color,Urine Yellow; Glucose,Urine (UA) Negative (Negative); Ketones,Urine Negative (Negative); Leukocyte Esterase,Urine Negative (Negative); Nitrite,Urine Negative (Negative); PH, Urine 6.0 (5.0-8.0); Protein,Urine Negative (Negative); Specific Gravity,Urine 1.028 (1.001-1.035); Urobilinogen,Urine 3.0 mg/dL (<2.0)
[2025-02-13 03:13] LABS: Barbiturate Screen,Urine Not Detected (NotDetected); Benzodiazepines Screen,Urine Detected (NotDetected); Opiate Screen,Urine Detected (NotDetected); Oxycodone Screen, Urine Not Detected (NotDetected); Phencyclidine Screen,Urine Not Detected (NotDetected); Tricyclic Antidepressant,Urine Not Detected (NotDetected); Urn Cannabinoid Scrn Detected (NotDetected)
[2025-02-13] MEDS ORDERED: NALOXONE 0.4 MG/ML 1 ML VIAL IV PRN (03:27)
[2025-02-13] MEDS ORDERED: ACETAMINOPHEN TAB 325 MG TAB PO PRN (03:27)
[2025-02-13] MEDS: SODIUM CHLORIDE 0.9% 1,000 ML IV SCH (03:45)
[2025-02-13] MEDS ORDERED: LORazepam 1 MG/0.5 ML VIAL IV STA (08:20)
[2025-02-13] MEDS: DAPAGLIFLOZIN PROPANEDIOL 10 MG TABLET PO SCH (08:59)
[2025-02-13] MEDS: LACOSAMIDE 50 MG TABLET PO SCH (09:17)
[2025-02-13] MEDS: FAMOTIDINE 20 MG TAB PO SCH (09:17)
[2025-02-13] MEDS: PANTOPRAZOLE 40 MG TABLET PO SCH (09:17)
[2025-02-13] MEDS: Lacosamide IV (ages 17+ yrs) 200 MG/20 ML ML IVP STA (09:17)
[2025-02-13] MEDS: SERTRALINE 50 MG TAB PO SCH (09:57)
--- NOTE | 2025-02-13 11:47 | P.HPIM ---
History of Present Illness This is a pleasant 44 years old male with past medical history of multiple medical problems including history of seizure. Looks like he was on Vimpat at home which he confirms to me. Patient awake alert he wakes up fatigued answers question goes back to sleep early awake. Patient states that he came because of seizure and he could not verify more. Per report he had a seizure for about 20 minutes which led lasted here in the emergency room and he has to get Versed 10 mg IM. Just prior to seeing the patient he had another seizure and received Ativan, that is why currently he is sleepy and cannot provide much information. Currently no seizure-like activity. Patient with no fever. Blood pressure stable. Labs including CBC, BMP LFT were unremarkable. Urinalysis negative for infection. Serum alcohol less than 10. Salicylate less than 1.0 and serum acetaminophen less than 10. Urine drug screen is positive for opiates benzodiazepines and marijuana. Review of Systems Review of systems CONSTITUTIONAL: No fever, no malaise, no fatigue. HEENT: No recent visual problems or hearing problems. Denied any sore throat. CARDIOVASCULAR: No orthopnea, PND, no palpitations, no syncope. PULMONARY: No shortness of breath, no cough, no hemoptysis. GASTROINTESTINAL: No diarrhea, no nausea, no vomiting, no abdominal pain. Normoactive bowel sounds. NEUROLOGICAL: No headaches, no weakness, no numbness. HEMATOLOGICAL: Denies any bleeding or petechiae. GENITOURINARY: Denies any burning micturition, frequency, or urgency. MUSCULOSKELETAL/RHEUMATOLOGICAL: Denies any joint pain, swelling, or any muscle pain. ENDOCRINE: Denies any polyuria or polydipsia. Past Medical History Past Medical History: No Reported History, Diabetes Mellitus, Hypertension, Sleep Apnea/CPAP/BIPAP Additional Past Medical History / Comment(s): Anxiety/Depression; Seizure 10 years ago 2014; seizure 2 years ago 2022 History of Any Multi-Drug Resistant Organisms: None Reported Past Surgical History: Orthopedic Surgery Additional Past Surgical History / Comment(s): rt knee scope x2, pilonidal cyst removal Past Anesthesia/Blood Transfusion Reactions: No Reported Reaction, Previous Problems w/ Anesthesia Additional Past Anesthesia/Blood Transfusion Reaction / Comment(s): very nauseated with anesthesia, even with zofran Past Psychological History: ADD/ADHD, Anxiety, Depression Smoking Status: Never smoker - Past Family History Mother Family Medical History: Cancer Additional Family Medical History / Comment(s): pancreatic Medications and Allergies Home Medications Medication Instructions Recorded Confirmed Type Omeprazole Magnesium [PriLOSEC OTC] 20 mg PO DAILY 11/14/24 02/13/25 History Sertraline [Zoloft] 150 mg PO DAILY 11/14/24 02/13/25 History Lacosamide 200 mg PO BID 12/19/24 02/13/25 History Tirzepatide [Mounjaro] 5 mg SQ FR 12/19/24 02/13/25 History lisinopriL [Zestril] 20 mg PO DAILY 02/13/25 02/13/25 History Allergies Allergy/AdvReac Type Severity Reaction Status Date / Time No Known Allergies Allergy Verified 11/14/24 15:44 Physical Exam Vitals: Vital Signs Temp Pulse Resp BP Pulse Ox 02/13/25 09:00 66 20 149/80 98 02/13/25 08:28 67 16 150/81 98 02/13/25 07:20 60 16 121/74 100 02/13/25 05:56 50 L 18 155/90 98 02/13/25 04:00 66 18 146/82 98 02/13/25 00:19 63 16 167/86 99 02/12/25 21:35 97.3 F L 101 H 20 166/133 100 Intake and Output 02/12/25 02/13/25 02/13/25 22:59 06:59 14:59 Other: Weight 108.862 kg -GENERAL: The patient is confused and sleepy HEENT: Pupils are round and equally reacting to light. EOMI. No scleral icterus. No conjunctival pallor. Normocephalic, atraumatic. No pharyngeal erythema. No thyromegaly. CARDIOVASCULAR: S1 and S2 present. No murmurs, rubs, or gallops. PULMONARY: Chest is clear to auscultation, no wheezing , no crackles. ABDOMEN: Soft, nontender, nondistended, normoactive bowel sounds. No palpable organomegaly. MUSCULOSKELETAL: No joint swelling or deformity. EXTREMITIES: No cyanosis, clubbing, or pedal edema. NEUROLOGICAL: Gross neurological examination did not reveal any focal deficits. SKIN: No rashes. no petechiae. Results CBC & Chem 7: 02/12/25 21:53 02/12/25 21:53 Labs: Abnormal Lab Results - Last 24 Hours (Table) 02/12/25 02/12/25 02/13/25 Range/Units 21:53 21:53 02:30 Hct 39.5 L (39.6-50.0) % Chloride 109 H (98-107) mmol/L Carbon Dioxide 20 L (22-30) mmol/L Glucose 121 H (74-99) mg/dL Urine Opiates Screen Detected H (NotDetected) U Benzodiazepines Scrn Detected H (NotDetected) U Marijuana (THC) Screen Detected H (NotDetected) Assessment and Plan Assessment: Generalized tonic-clonic seizure suspicious for breakthrough seizure Diabetes mellitus Hyperlipidemia Obstructive sleep apnea History of anxiety and depression Obesity with BMI of 30.8 Plan: Resume Vimpat Continue with Ativan as needed Neurology team consult Follow-up EEG per neurologist Labs and medication were reviewed.. Continue same treatment. Continue with symptomatic treatment. Resume home medication. Monitor labs and vitals. DVT and GI prophylaxis. Further recommendations as per clinical course of the patient DVT prophylaxis: Subcutaneous heparin GI Prophylaxis: Pepcid Prognosis is guarded
[2025-02-13 11:58] LABS: Glucose,Whole Blood 97 mg/dL (70-110)
[2025-02-13] MEDS: LORazepam 1 MG/0.5 ML VIAL IV STA ×2 (12:20→12:25)
--- NOTE | 2025-02-13 15:33 | P.CNNES ---
<Mi Ibrahim - Last Filed: 02/13/25 15:30> History of Present Illness Consult date: 02/13/25 Requesting physician: Sudeep Velázquez Reason for Consult: Generalized seizure with prolonged postictal. History of Present Illness: Patient is a 44-year-old male with diabetes mellitus, hypertension, LYNDSAY, seizure disorder presented to the ED after a seizure. Patient had 60 minutes of seizure that started at home and continued to have seizure in the ED. He denies tongue biting as well as bowel and bladder incontinence. He has had three seizures in t he past. stated he was in ED in past for seizure-like activity and was notified maybe one of episode could have been TIA because of speech difficulty. recently patient saw his opthalmologist who told him his right eye is swollen and he should follow up neurology. Patient was assessed at a prior visit by our service, when he was admitted for clinical status epilepticus, likely Rigo breakthrough seizure which was provoked due to not being on antiseizure medication as well as having uncontr olled hypertension and diabetes mellitus as he was not getting his medications because of insurance issues. He had seizure-like activity about 10 years ago and 2 years ago and she denies him being on antiseizure medication since was not notified that he needed to follow-up with neurologist as outpatient. EEG obtained at that visit in November 2024 that showed hard to assess the background since the patient is in a drowsy state, no focal slowing/epileptiform discharges/seizure, excessive beta activity likely due to medication effect (benzos ), abnormal routine EEG during drowsy state. Brain MRI was also obtained that showed no acute intracranial process evident on the limited examination, procedure aborted early because of seizure inside the scanner. He was started on Lacosamide 200 mg BID and then trasnferred to [facility] for 24 hr EEG, which the states was negative. He also had Brain MRI and CSF studies that were all negative. At [facility] he started experiencing right sided weakness. He still has the right sided weakness and he has been undergoing physical therapy but he has not noticed a lot of change in his symptoms. Patient is compliant with his medications. Patient's mentions that he experienced bad taste after getting Keppra. Patient seen today under neurological consultation. In the ED he was treated with Vimpat 200 mg IVP, Keppra 1500 mg IVPx2, Ativan total of 3 mg, Versed 2 mg, 0.9 normal saline. Vital signs are within normal limits Urine toxicology positive for opiates, benzodiazepines, marijuana Brain CT shows no acute findings in the head/brain Past Medical History Past Medical History: No Reported History, Diabetes Mellitus, Hypertension, Sleep Apnea/CPAP/BIPAP Additional Past Medical History / Comment(s): Anxiety/Depression; Seizure 10 years ago 2014; seizure 2 years ago 2022 History of Any Multi-Drug Resistant Organisms: None Reported Past Surgical History: Orthopedic Surgery Additional Past Surgical History / Comment(s): rt knee scope x2, pilonidal cyst removal Past Anesthesia/Blood Transfusion Reactions: No Reported Reaction, Previous Problems w/ Anesthesia Additional Past Anesthesia/Blood Transfusion Reaction / Comment(s): very n auseated with anesthesia, even with zofran Past Psychological History: ADD/ADHD, Anxiety, Depression Smoking Status: Never smoker - Past Family History Mother Family Medical History: Cancer Additional Family Medical History / Comment(s): pancreatic Medications and Allergies Home Medications Medication Instructions Recorded Confirmed Type Omeprazole Magnesium [PriLOSEC OTC] 20 mg PO DAILY 11/14/24 02/13/25 History Sertraline [Zoloft] 150 mg PO DAILY 11/14/24 02/13/25 History Lacosamide 200 mg PO BID 12/19/24 02/13/25 History Tirzepatide [Mounjaro] 5 mg SQ FR 12/19/24 02/13/25 History lisinopriL [Zestril] 20 mg PO DAILY 02/13/25 02/13/25 History Allergies Allergy/AdvReac Type Severity Reaction Status Date / Time No Known Allergies Allergy Verified 11/14/24 15:44 Physical Examination - Vital Signs Vital Signs: Vital Signs Temp Pulse Resp BP Pulse Ox 02/13/25 09:00 66 20 149/80 98 02/13/25 08:28 67 16 150/81 98 02/13/25 07:20 60 16 121/74 100 02/13/25 05:56 50 L 18 155/90 98 02/13/25 04:00 66 18 146/82 98 02/13/25 00:19 63 16 167/86 99 02/12/25 21:35 97.3 F L 101 H 20 166/133 100 Intake and Output 02/12/25 02/13/25 02/13/25 22:59 06:59 14:59 Other: Weight 108.862 kg General: Lying in bed and is not in acute distress. Neuro: The patient is drowsy and is awakeable to voice. Is oriented to self, place and time. Is following simple commands. Visual ruff are full to confrontation. EOM with limitation no nystagmus. Normal facial sensation to touch. No facial weakness. No dysarthria. Tongue is midline and moves side to side without difficulty. Motor: The strength over the left side is 4 out of 5. The right side is 3/5. Sensation: Normal to touch throughout. Reflex: 2+ in uppers while lowers limited. Plantars: Mute Results - Laboratory Findings CBC and BMP: 02/12/25 21:53 02/12/25 21:53 Abnormal Lab Findings: Abnormal Labs 02/12/25 02/12/25 02/13/25 21:53 21:53 02:30 Hct 39.5 L Chloride 109 H Carbon Dioxide 20 L Glucose 121 H Urine Opiates Screen Detected H U Benzodiazepines Scrn Detected H U Marijuana (THC) Screen Detected H Assessment and Plan Assessment: Clinical status epilepticus, Breakthrough seizure History of seizure (2 and 10 years ago) and not on antiseizure medications Diabetes mellitus Hypertension LYNDSAY on CPAP Marijuana use Plan: Brain CT shows no acute findings in the head/brain EEG November 2024 that showed hard to assess the background since the patient is in a drowsy state, no focal slowing/epileptiform discharges/seizure, excessive beta activity likely due to medication effect (benzos ), abnormal routine EEG during drowsy state. Brain MRI in November 2024 showed no acute intracranial process evident on the limited examination, procedure aborted early because of seizure inside the scanner. Obtain lactic acid and EEG Home med resumed Lacosamide 200 mg PO BID Patient received Vimpat 200 mg IVP, Keppra 1500 mg IVP , Ativan IV 1 and 2 mg, Versed 2 mg IV in the ED Per [place] DMV because of seizure, avoid driving for 6 months until seizure-free, avoid heights, avoid swimming unassisted or using heavy machinery Dictation was produced using [employer] dictation software. please excuse any grammatical, word or spelling errors. Mi Ibrahim MD PGY-2 IM <mC Antonio - Last Filed: 02/13/25 21:28> Physical Examination - Vital Signs Vital Signs: Vital Signs Temp Pulse Resp BP Pulse Ox 02/13/25 18:00 78 18 149/78 98 02/13/25 15:35 63 18 141/84 98 02/13/25 13:00 81 18 149/82 98 02/13/25 11:00 65 16 150/85 98 02/13/25 09:00 66 20 149/80 98 02/13/25 08:28 67 16 150/81 98 02/13/25 07:20 60 16 121/74 100 02/13/25 05:56 50 L 18 155/90 98 02/13/25 04:00 66 18 146/82 98 02/13/25 00:19 63 16 167/86 99 02/12/25 21:35 97.3 F L 101 H 20 166/133 100 Results - Laboratory Findings CBC and BMP: 02/12/25 21:53 02/12/25 21:53 Abnormal Lab Findings: Abnormal Labs 02/12/25 02/12/25 02/13/25 21:53 21:53 02:30 Hct 39.5 L Chloride 109 H Carbon Dioxide 20 L Glucose 121 H Urine Opiates Screen Detected H U Benzodiazepines Scrn Detected H U Marijuana (THC) Screen Detected H Assessment and Plan Plan: I was present for the salas and critical components of this encounter and agree with the assessment and plan as documented above, with my changes documented as below. Patient had a prolonged EEG performed at [facility] which revealed diffuse background slowing and disorganization, which improved following extubation at 9:15 AM on 11/17/2024. No epileptiform activity was seen. Patient had a clinical ictal event with head tremoring and right arm shaking without any electrographic correlate. Patient CSF showed glucose 66, meningitis encephalitis panel was negative including HSV 1, HSV-2, HSV 6, VZV, cryptococcal antigen, CMV, Listeria, harley emophilus, E. coli. MRI of the brain with and without contrast was normal. Patient's was present, who admits that patient is under a lot of stress. He has significant anxiety and depression. He has been off work for 3 months but just recently went back to work on Thursday. I witnessed patient's seizure while EEG was being done. Patient has up-and-down flapping of the right hand. When I moved his arm upwards, his hand movement became [id number]. This event was psychogenic nonepileptic event. Patient received Ativan 3 mg. Per repair technician report, after she unhooked him, he had a full conversation with the repair technician without any confusion, fully oriented x 4. Patient probably has psychogenic nonepileptic seizures. Continue Vimpat 200 mg twice daily. Neurologically clear. Time with Patient: Greater than 30
[2025-02-13 17:28] LABS: Glucose,Whole Blood 87 mg/dL (70-110)
[2025-02-13 20:49] LABS: Glucose,Whole Blood 101 mg/dL (70-110)
[2025-02-13] MEDS: HEPARIN SODIUM,PORCINE 5,000 UNIT/ML 1 ML VIAL SQ SCH (21:51)
--- NOTE | 2025-02-14 00:11 | EEG ---
ELECTROENCEPHALOGRAM REPORT PREAMBLE: This is a 44-year-old male with possible seizure disorder. This study is performed to evaluate for any epileptiform activity. CURRENT MEDICATIONS: 1. Vimpat. 2. Zoloft. 3. Farxiga. EEG FINDINGS: This is a 21-channel digital EEG recorded with video component, utilizing 10/20 international system with referential and bipolar montages. Background consists of well-developed, moderately well regulated, predominantly low-voltage fast frequency beta activity seen in bihemispheric region. Occasional 10-11 hertz alpha activity was seen posteriorly. Background does not seem to be clearly reactive to eye opening and closing. Photic driving response was not seen. However, at the end of photic stimulation, the patient started having typical seizure consisting of head movement [id number] and flapping, movement of the right hand front and back. He was also having some adduction of both legs at the same time. During this event, no electrographic correlate was noted. No epileptiform activity was seen. Only some movement artifacts seen in bitemporal region. No electrographic seizure was recorded. IMPRESSION: 1. This is a borderline abnormal EEG due to presence of excessive amount of low- voltage fast frequency beta activity, suggestive of benzodiazepine effect. 2. Recording of typical ictal event, consisting of rhythmic head movement side-to- side, right hand flapping up and down, and the legs adduction. During this time, no electrographic correlate was noted. No epileptiform activity was seen. This event is consistent with nonepileptic seizure. MMODL / IJN: [id number] /
[2025-02-14] MEDS ORDERED: LORazepam 1 MG/0.5 ML VIAL IV PRN (00:41)
[2025-02-14 06:01] LABS: Glucose,Whole Blood 149 mg/dL (70-110)
[2025-02-14 08:38] LABS: Basophils # (A) 0.03 X 10*3/uL (0.00-0.10); Basophils % (A) 0.5 %; Eosinophils # (A) 0.06 X 10*3/uL (0.04-0.35); Eosinophils % (A) 1.0 %; HCT 41.7 % (39.6-50.0); HGB 13.8 g/dL (13.0-17.0); Immature Grans, Automated 0.50 %; Lymphocytes # (A) 1.48 X 10*3/uL (0.90-5.00); Lymphocytes % (A) 24.3 %; MCH 28.5 pg (27.0-32.0); MCHC 33.1 g/dL (32.0-37.0); MCV 86.0 FL (80.0-97.0); Monocytes # (A) 0.42 X 10*3/uL (0.20-1.00); Monocytes % (A) 6.9 %; NRBC Per 100 WBC 0 X 10*3/uL (0.00-0.01); Neutrophils # (A) 4.06 X 10*3/uL (1.80-7.70); Neutrophils % (A) 66.8 %; Platelet Count 189 X 10*3/uL (140-440); RBC 4.85 X 10*6/uL (4.40-5.60); RDW 14.4 % (11.5-14.5); WBC 6.08 X 10*3/uL (4.50-10.00)
[2025-02-14 08:45] LABS: BUN/Creat Ratio 13.75 Ratio (12.00-20.00); Blood Urea Nitrogen 11.0 mg/dL (9.0-27.0); Glucose 103 mg/dL (70-110)
[2025-02-14 08:46] LABS: Anion Gap 10.70 mmol/L (4.00-12.00); Calcium 8.8 mg/dL (8.7-10.3); Carbon Dioxide 23.3 mmol/L (21.6-31.8); Chloride 107 mmol/L (96-109); Potassium 4.0 mmol/L (3.5-5.5); Sodium 141 mmol/L (135-145)
--- NOTE | 2025-02-14 09:42 | P.PN ---
Subjective Progress Note Date: 02/14/25 Principal diagnosis: Patient seen and examined at bedside today. Patient denies any new complaints today. Vital signs are within normal limits EEG shows borderline abnormal EEG due to presence of excessive amount of low voltage fast frequency beta activities history of benzodiazepine effect, recording of typical ictal event consisting of rhythmic head movements side to side, right hand flapping up-and-down, and bilateral legs adduction. During this time no electrographic correlate was noted, no epileptiform activity was seen. This event is consistent with nonepileptic seizure Objective - Vital Signs Vital signs: Vital Signs Temp 98.8 F 02/14/25 07:00 Pulse 81 02/14/25 07:00 Resp 16 02/14/25 07:00 BP 121/70 02/14/25 07:00 Pulse Ox 98 02/14/25 07:00 FiO2 Intake & Output 02/13/25 02/14/25 02/14/25 18:59 06:59 18:59 Output Total 1200 Balance -1200 Weight 108.862 kg Output: Urine 1200 Other: Voiding Method Toilet Urinal # Voids 1 - Exam General: Lying in bed and is not in acute distress. Neuro: The patient is drowsy and is awakeable to voice. Is oriented to self, place and time. Is following simple commands. Visual ruff are full to confrontation. EOM with limitation no nystagmus. Normal facial sensation to touch. No facial weakness. No dysarthria. Tongue is midline and moves side to side without difficulty. Motor: The muscle strength is 5/5 bilaterally. Sensation: Normal to touch throughout. Reflex: 2+ in uppers while lowers limited. Plantars: Mute - Labs CBC & Chem 7: 02/14/25 05:36 02/14/25 05:36 Labs: Abnormal Lab Results - Last 24 Hours (Table) 02/14/25 Range/Units 06:00 POC Glucose (mg/dL) 149 H (70-110) mg/dL Assessment and Plan Assessment: Clinical status epilepticus, Breakthrough seizure. EEG consistent with psyc hogenic nonepileptic seizure disorder. History of seizure (2 and 10 years ago) and not on antiseizure medications Diabetes mellitus Hypertension LYNDSAY on CPAP Marijuana use Plan: EEG shows borderline abnormal EEG due to presence of excessive amount of low voltage fast frequency beta activities, suggestive of benzodiazepine effect, recording of typical ictal event consisting of rhythmic head movements side to side, right hand flapping up-and-down, in the legs adduction. During this time no electrographic correlate was noted, no epileptiform activity was seen. This event is consistent with nonepileptic seizure EEG November 2024 that showed hard to assess the background since the patient is in a drowsy state, no focal slowing/epileptiform discharges/seizure, excessive beta activity likely due to medication effect (benzos ), abnormal routine EEG during drowsy state. Brain MRI in November 2024 showed no acute intracranial process evident on the limited examination, procedure aborted early because of seizure inside the scanner. Lactic acid 0.7 Patient received Vimpat 200 mg IVP, Keppra 1500 mg IVP , Ativan IV 1 and 2 mg, Versed 2 mg IV in the ED Home med resumed Lacosamide 200 mg PO BID Per [place] DMV because of seizure, avoid driving for 6 months until seizure-free, avoid heights, avoid swimming unassisted or using heavy machinery Patient is optimized for discharge from neurological standpoint. Recommend outpatient neurology follow up and management of underlying stress. Recommend patient follow-up with neurologist outpatient. Discussed with family members in detail. Dictation was produced using [employer] dictation software. please excuse any gramm atical, word or spelling errors. Mi Ibrahim MD PGY-2 IM I was present for the salas and critical components of this encounter and I agree with the assessment and plan as documented above. Cm Antonio MD
[2025-02-14 12:23] LABS: Glucose,Whole Blood 95 mg/dL (70-110)
[2025-02-14 14:24] VITALS: BP 142/82; PULSE 69; RESP 15; TEMP 98.9
[2025-02-14] MEDS: SERTRALINE 100 MG TAB PO ONE (15:26)
[2025-02-14] MEDS ORDERED: LACOSAMIDE 50 MG TABLET PO SCH (21:00)
--- NOTE | 2025-02-15 06:56 | P.DS ---
Providers Date of admission: 02/13/25 03:27 Attending physician: Jason Hebert Consults: 02/13/25 03:27 Consult Physician Routine Consulting Provider: Candi Burnett Consult Reason/Comments: Generalized seizure with prolonged postictal period Do you want consulting provider notified?: Yes Primary care physician: Jigar Beltran Hospital Course: Diagnoses: Generalized tonic-clonic seizure suspicious for breakthrough seizure. Found to have nonepileptic seizure and cleared for discharge by neurologist Diabetes mellitus Hyperlipidemia Obstructive sleep apnea History of anxiety and depression Obesity with BMI of 30.8 Hospital course: This is a pleasant 44 years old male with past medical history of multiple medical problems including history of seizure. Looks like he was on Vimpat at home which he confirms to me. Patient back to his baseline, mentation at baseline denies any headache dizziness weakness or numbness Patient evaluated by neurologist. He had EEG which showed no epileptiform disch arge during the seizure-like activity confirming the diagnosis of nonepileptic form seizure Patient was advised to avoid stress, patient is not suicidal or homicidal. I asked the patient to consult psychiatry team however he declined send he wants to be discharged and follow-up with his PCP Dr. Beltran which seems reasonable Patient denies any other new complaints Patient was cleared for discharge by neurologist Problems and management plan were discussed with the patient and he verbalized understanding and acceptance Patient was found stable and can be discharged home in guarded prognosis however he needs follow-up as an outpatient. Patient was instructed to follow up with PCP within one week and patient agrees Patient was instructed to follow-up with his neurologist Dr. Geovanna joshi in 1 to 2 weeks and he agrees. Also patient informed about admission along with no driving till seizure-free x 6 months and he verbalized understanding and acceptance. Patient did not need any prescription upon discharge as he states Physical exam Gen: patient is a AAOx3, no distress CVS: S1-S2, RRR, no murmur Lungs: B/L CTA, no wheezing Abdomen: soft, no distention, no tenderness, positive bowel sounds Extremity: no leg edema or induration Time spent more than 35 minutes Patient Condition at Discharge: Fair Plan - Discharge Summary Discharge Rx Participant: No New Discharge Prescriptions: Continue Lacosamide 200 mg PO BID lisinopriL [Zestril] 20 mg PO DAILY Sertraline [Zoloft] 150 mg PO DAILY Omeprazole Magnesium [PriLOSEC OTC] 20 mg PO DAILY Tirzepatide [Mounjaro] 5 mg SQ FR Discharge Medication List Omeprazole Magnesium [PriLOSEC OTC] 20 mg PO DAILY 11/14/24 [History] Sertraline [Zoloft] 150 mg PO DAILY 11/14/24 [History] Lacosamide 200 mg PO BID 12/19/24 [History] Tirzepatide [Mounjaro] 5 mg SQ FR 12/19/24 [History] lisinopriL [Zestril] 20 mg PO DAILY 02/13/25 [History] Follow up Appointment(s)/Referral(s): Jigar Beltran MD [Primary Care Provider] - 1-2 days Danielle Medina MD [Medical Doctor] - 1 Week Patient Instructions/Handouts: Seizure/Epilepsy Discharge Instructions & Follow-Up Activity/Diet/Wound Care/Special Instructions: resume previous diet , we recommend heart healthy diet activity is restricted till you see your doctor we recommend to avoid substances like marijuana and other sedatives to the brain Discharge Disposition: HOME SELF-CARE
[2025-02-15] MEDS ORDERED: SERTRALINE 50 MG TAB PO SCH (09:00)
== END 2025-02-14 17:28 | disposition home or self-care (01) ==
LOC: EC 21:30 → 6NMEDSUR 02-13 03:27
PROVIDERS: ADMIT Hospitalist; ATTEND Hospitalist
DX: G40.401 Other generalized epilepsy and epileptic syndromes, not intractable, with status epilepticus (principal); R40.20 Unspecified coma; R94.01 Abnormal electroencephalogram [EEG]; R41.82 Altered mental status, unspecified; R53.83 Other fatigue; E11.9 Type 2 diabetes mellitus without complications; E78.5 Hyperlipidemia, unspecified; G47.33 Obstructive sleep apnea (adult) (pediatric); E66.9 Obesity, unspecified; Z68.30 Body mass index [BMI] 30.0-30.9, adult; F32.A Depression, unspecified; F41.9 Anxiety disorder, unspecified; Z59.71 Insufficient health insurance coverage; Z91.141 Patient's other noncompliance with medication regimen due to financial hardship; Z79.899 Other long term (current) drug therapy
CPT/HCPCS: 96361 ×4; 96372 ×2; 96376; 96374; 96375; 99285; 36415; 95816; 93005; 80053; 80048; 83605; 83735; 85025 ×2; 81003; 80306; 80143; 80320; 80179; 70450; G0378 ×2; J2250; J2060 ×2; J1644 ×2; J1953

== ENCOUNTER 2025-02-14 21:27 | Emergency (ER) | payer BC ==
[2025-02-14 21:35] VITALS: RESP 18
[2025-02-14 21:53] LABS: Glucose,Whole Blood 108 mg/dL (70-110)
--- NOTE | 2025-02-14 22:05 | ED ---
Anxiety HPI - General Chief Complaint: Anxiety Stated Complaint: Seizure Time Seen by Provider: 02/14/25 21:40 Source: patient, RN notes reviewed Mode of arrival: EMS Limitations: no limitations - History of Present Illness MD Complaint: anxiety Onset/Timin -: hour(s) Place: outdoors Previous History of Same: Yes - Related Data Home Medications: Home Medications Medication Instructions Recorded Confirmed Omeprazole Magnesium [PriLOSEC OTC] 20 mg PO DAILY 11/14/24 02/13/25 Sertraline [Zoloft] 150 mg PO DAILY 11/14/24 02/13/25 Lacosamide 200 mg PO BID 12/19/24 02/13/25 Tirzepatide [Mounjaro] 5 mg SQ FR 12/19/24 02/13/25 lisinopriL [Zestril] 20 mg PO DAILY 02/13/25 02/13/25 Allergies/Adverse Reactions: Allergies Allergy/AdvReac Type Severity Reaction Status Date / Time No Known Allergies Allergy Verified 11/14/24 15:44 Review of Systems ROS Statement: Those systems with pertinent positive or pertinent negative responses have been documented in the HPI. ROS Other: All systems not noted in ROS Statement are negative. Past Medical History Past Medical History: Diabetes Mellitus, Hypertension, Sleep Apnea/CPAP/BIPAP Additional Past Medical History / Comment(s): Anxiety/Depression; Seizure 10 years ago 2014; seizure 2 years ago 2022 and November 2024 History of Any Multi-Drug Resistant Organisms: None Reported Past Surgical History: Orthopedic Surgery Additional Past Surgical History / Comment(s): rt knee scope x2, pilonidal cyst removal, right carpal tunnel surgery Past Anesthesia/Blood Transfusion Reactions: No Reported Reaction, Previous Problems w/ Anesthesia Additional Past Anesthesia/Blood Transfusion Reaction / Comment(s): very nauseated with anesthesia, even with zofran Past Psychological History: ADD/ADHD, Anxiety, Depression Smoking Status: Never smoker Past Alcohol Use History: Occasional Past Drug Use History: Marijuana - Past Family History Mother Family Medical History: Cancer Additional Family Medical History / Comment(s): pancreatic General Exam Limitations: no limitations General appearance: alert, in no apparent distress Head exam: Present: atraumatic, normocephalic, normal inspection Eye exam: Present: normal appearance, PERRL, EOMI. Absent: scleral icterus, conjunctival injection, periorbital swelling ENT exam: Present: normal exam, mucous membranes moist Neck exam: Present: normal inspection. Absent: tenderness, meningismus, lymphadenopathy Respiratory exam: Present: normal lung sounds bilaterally. Absent: respiratory distress, wheezes, rales, rhonchi, stridor Cardiovascular Exam: Present: regular rate, normal rhythm, normal heart sounds. Absent: systolic murmur, diastolic murmur, rubs, gallop, clicks GI/Abdominal exam: Present: soft, normal bowel sounds. Absent: distended, tenderness, guarding, rebound, rigid Extremities exam: Present: full ROM, normal capillary refill, other (Moderate tremor noted in right foot). Absent: tenderness, pedal edema, joint swelling, calf tenderness Back exam: Present: normal inspection Neurological exam: Present: alert, oriented X3, CN II-XII intact Psychiatric exam: Present: normal affect, normal mood Skin exam: Present: warm, dry, intact, normal color. Absent: rash Course Vital Signs 02/14/25 21:32 Temperature 97.9 F Pulse Rate 101 H Respiratory 18 Rate Blood Pressure 154/81 O2 Sat by Pulse 98 Oximetry Medical Decision Making - Medical Decision Making Was pt. sent in by a medical professional or institution (, PA, CHARGE AIDE, urgent care, hospital, or long term...) When possible be specific @ -[No] Did you speak to anyone other than the patient for history (EMS, parent, family, police, friend...)? What history was obtained from this source @ -[No] Did you review nursing and triage notes (agree or disagree)? Why? @ -[I reviewed and agree with nursing and triage notes] Were old charts reviewed (outside hosp., previous admission, EMS record, old EKG, old radiological studies, urgent care reports/EKG's, long term records)? Report findings @ -[No old charts were reviewed] Differential Diagnosis (chest pain, altered mental status, abdominal pain women, abdominal pain men, vaginal bleeding, weakness, fever, dyspnea, syncope, headache, dizziness, GI bleed, back pain, seizure, CVA, palpatations, mental health, musculoskeletal)? @ -Differential Seizure: Recurrent seizure disorder, febrile seizure, alcohol withdrawal, stimulants, meningitis, encephalitis, intercranial hemorrhage, intracranial tumor, stroke, eclampsia, thyrotoxicosis, hypocalcemia, hyponatremia, hypernatremia, hypomagnesemia, psychogenic, this is not meant to be an all-inclusive list. EKG interpreted by me (3pts min.). @ -Sinus rhythm without ST deviation or T wave inversion. Ventricular rate 69 bpm, RG 183 ms, QRS 93 ms, QTc 380 ms. X-rays interpreted by me (1pt min.). @ -[None done] CT interpreted by me (1pt min.). @ -[None done] U/S interpreted by me (1pt. min.). @ -[None done] What testing was considered but not performed or refused? (CT, X-rays, U/S, labs)? Why? @ -[None] What meds were considered but not given or refused? Why? @ -[None] Did you discuss the management of the patient with other professionals (professionals i.e. , PA, CHARGE AIDE, lab, RT, psych nurse, social media manager, medical assistant ob gyn, teacher, gift officer, rehabilitation caseworker)? Give summary @ -[No] Was smoking cessation discussed for >3mins.? @ -[No] Was critical care preformed (if so, how long)? @ -[No] Were there social determinants of health that impacted care today? How? (Homelessness, low income, unemployed, alcoholism, drug addiction, transportation, low edu. Level, literacy, decrease access to med. care, snf, rehab)? @ -[No] Was there de-escalation of care discussed even if they declined (Discuss DNR or withdrawal of care, Hospice)? DNR status @ -[No] What co-morbidities impacted this encounter? (DM, HTN, Smoking, COPD, CAD, Cancer, CVA, ARF, Chemo, Hep., AIDS, mental health diagnosis, sleep apnea, morbid obesity)? @ -[None] Was patient admitted / discharged? Hospital course, mention meds given and route, prescriptions, significant lab abnormalities, going to OR and other pertinent info. @ -[hospital course] Undiagnosed new problem with uncertain prognosis? @ -[No] Drug Therapy requiring intensive monitoring for toxicity (Heparin, Nitro, Insul in, Cardizem)? @ -[No] Were any procedures done? @ -[No] Diagnosis/symptom? @ -Acute anxiety Acute, or Chronic, or Acute on Chronic? @ -Acute Uncomplicated (without systemic symptoms) or Complicated (systemic symptoms)? @ -Uncomplicated Side effects of treatment? @ -[No] Exacerbation, Progression, or Severe Exacerbation? @ -[No] Poses a threat to life or bodily function? How? (Chest pain, [place], [place], pneumonia, PE, COPD, DKA, ARF, appy, cholecystitis, CVA, Diverticulitis, Homicidal, Suicidal, threat to staff... and all critical care pts) @ -[No] - Lab Data Lab Results 02/14/25 Range/Units 21:52 POC Glucose (mg/dL) 108 (70-110) mg/dL POC Glu Recreation Therapy Aides Teacher ID Beau Durand Disposition Clinical Impression: Acute anxiety Disposition: HOME SELF-CARE Condition: Good Instructions (If sedation given, give patient instructions): Anxiety (ED) Additional Instructions: Return to ER if a seizure should occur. Follow-up with PCP/neurology in the next 24-48 hours. Is patient prescribed a controlled substance at d/c from ED?: No Referrals: Jigar Beltran MD [Primary Care Provider] - 1-2 days Time of Disposition: 22:05
[2025-02-14] MEDS: LACOSAMIDE 50 MG TABLET PO STA (22:24)
[2025-02-14] MEDS: LORazepam 1 MG/0.5 ML VIAL IV STA (22:24)
[2025-02-14] MEDS: levETIRAcetam 500 MG TAB PO STA (22:24)
[2025-02-14 22:41] VITALS: BP 158/80; PULSE 75; TEMP 97.8
== END 2025-02-14 22:42 | disposition home or self-care (01) ==
LOC: EC 21:27
DX: F41.9 Anxiety disorder, unspecified (principal)
CPT/HCPCS: 36415; 93005; 99284; 96374; J2060